=== PATIENT | male | born 1945 | race Caucasian/White ===

== ENCOUNTER 2018-05-12 02:52 | Inpatient (IN) | payer MEDICARE ==
[~2018-05-12] VITALS: Ht 182.9 cm; Wt 126.1 kg
[2018-05-12] VITALS (12 sets, daily range): BP systolic 101–158; BP diastolic 45–79
--- NOTE | 2018-05-12 02:58 | ED.ADGEN ---
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 This started about 1 to 2 days ago.. feeling short of breath.. increase cough.. but tonight.. it much.... worse.... I feel like my lungs ...are full of water....I feel like... I can't get air in...." HPI HPI Patient is a 72 year old [address] male [facility] inmate who presents with above hx and complaints of increased dyspnea. Pt hypoxic on room air on arrival. Patient has approximately [id number] smoking history however has not smoked since that [facility] december. Patient has history of COPD, but has had only rare episodes of bronchitis or exacerbation. Patient is exposed to other inmates at [facility] that who have been sick recently. Patient did have flu vaccination this season. Patient used to be an alcoholic. 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 Pt.did have three episodes of Afib prior to replacement of his aortic value. Patient does take aspirin as an anticoagulant. Patient has never required oxygen. Patient complains of a nonproductive dry cough. Has been feeling like he has fevers. Patient has just finished a 10 year senior care sentence with the [employer]. Pt. pacer placed after his aortic penelope. was replaced. . Review of Systems Review of Systems Constitutional: subjective fever and chills. Eyes: Denies change in visual acuity, redness, or eye pain [] HENT: hx nasal congestion and rhinorrhea. Respiratory: Complaints of non-productive cough and increased dyspnea. Cardiovascular: No additional information not addressed in HPI [] GI: Denies abdominal pain, nausea, vomiting, bloody stools or diarrhea [] : Denies dysuria or hematuria [] Musculoskeletal: Denies back pain or joint pain [] Integument: Denies rash or skin lesions [] Neurologic: Denies headache, focal weakness or sensory changes [] Endocrine: Denies polyuria or polydipsia [] All other systems were reviewed and found to be within normal limits, except as documented in this note. Family History Family History Non-contributory Current Medications Current Medications Current Medications Medications (Trade) Dose Ordered Sig/Nicolas Start Time Stop Time Status Last Admin Dose Admin Albuterol/ Ipratropium (Duoneb) 3 ml RTQID 05/12/18 08:00 Aspirin (Children'S Aspirin) 81 mg DAILY 05/13/18 09:00 Azithromycin (Zithromax) 250 mg DAILY 05/12/18 09:00 Ceftriaxone Sodium 1 gm/ Sodium Chloride 50 ml @ 100 mls/hr QHS 05/12/18 21:00 Ceftriaxone Sodium (Rocephin) 1 gm STK-MED ONCE 05/12/18 03:44 05/12/18 03:45 DC Dextrose 100 ml @ As Directed STK-MED ONCE 05/12/18 04:31 05/12/18 04:32 DC Diltiazem HCl (Cardizem Iv Push) 10 mg 1X ONCE 05/12/18 05:00 05/12/18 05:02 DC Diltiazem HCl (Cardizem) 125 mg STK-MED ONCE 05/12/18 04:31 05/12/18 04:32 DC Diltiazem HCl 125 mg/Dextrose 125 ml @ 5 mls/hr CONT PRN 05/12/18 04:30 05/12/18 04:36 5 MLS/HR Enoxaparin Sodium (Lovenox 120mg Syringe) 120 mg BID 05/12/18 21:00 Info (Anti-Coagulation Monitoring By Pharmacy) 1 each PRN DAILY PRN 05/12/18 04:45 Lactated Ringer's 1,000 ml @ 100 mls/hr Q10H 05/12/18 04:00 05/12/18 13:59 05/12/18 03:51 100 MLS/HR Methylprednisolone Sodium Succinate (SOLU-Medrol 125MG VIAL) 50 mg DAILY 05/12/18 09:00 Ondansetron HCl (Zofran) 4 mg PRN Q4HRS PRN 05/12/18 04:30 05/13/18 04:29 Sodium Chloride 50 ml @ As Directed STK-MED ONCE 05/12/18 03:44 05/12/18 03:45 DC See Nursing for home meds. Allergies Allergies Allergies Coded Allergies Type Severity Reaction Last Updated Verified No Known Drug Allergies 05/12/18 No NKDA Physical Exam Physical Exam Constitutional: in acute distress, non-toxic appearance. [] HENT: Normocephalic, atraumatic, bilateral external ears normal, oropharynx moist, no oral exudates, nose mild injection of nasal turbinates with clear rhinorrhea. Eyes: PERRLA, EOMI, conjunctiva normal, no discharge. [] Neck: Normal range of motion, no tenderness, supple, no stridor. [] Cardiovascular: Tachycardia Heart with ill regular rate and rhythm, aortic murmur []PMI to Lt. Monitor pt. appears to be in Afib. with rapid vent. response. Lungs & Thorax: Bilateral breath sounds equal at apexes with scattered wheezes and basilar crackles on auscultation [] Mid line scar. Pacer scar left. Dry non -productive cough. Abdomen: Bowel sounds normal, soft, no tenderness, no masses, no pulsatile masses. [] Obese. Skin: Warm, diaphoretic, no erythema, no rash. [] Back: No tenderness, no CVA tenderness. [] Extremities: No tenderness, no cyanosis, no clubbing, ROM intact, trace ankle edema. [] Neurologic: Alert and oriented X 3, normal motor function, normal sensory function, no focal deficits noted. [] Psychologic: Affect anxious,, judgement normal, mood normal. [] Current Patient Data Vital Signs Vital Signs Date Time Temp Pulse Resp B/P (MAP) Pulse Ox O2 Delivery O2 Flow Rate FiO2 05/12/18 04:50 100 22 160/92 (114) 96 Nasal Cannula 4.0 05/12/18 02:52 98.5 Lab Results Laboratory Tests Test 05/12/18 03:10 05/12/18 03:13 05/12/18 03:49 05/12/18 04:54 White Blood Count 7.0 x10^3/uL (4.0-11.0) Red Blood Count 4.49 x10^6/uL (4.30-5.70) Hemoglobin 13.8 g/dL (13.0-17.5) Hematocrit 41.7 % (39.0-53.0) Mean Corpuscular Volume 93 fL (79-100) Mean Corpuscular Hemoglobin 31 pg (25-35) Mean Corpuscular Hemoglobin Concent 33 g/dL (31-37) Red Cell Distribution Width 13.6 % (11.5-14.5) Platelet Count 194 x10^3/uL (140-400) Neutrophils (%) (Auto) 79 % (31-73) H Lymphocytes (%) (Auto) 8 % (24-48) L Monocytes (%) (Auto) 8 % (0-9) Eosinophils (%) (Auto) 6 % (0-3) H Basophils (%) (Auto) 1 % (0-3) Neutrophils # (Auto) 5.5 x10^3uL (1.8-7.7) Lymphocytes # (Auto) 0.5 x10^3/uL (1.0-4.8) L Monocytes # (Auto) 0.5 x10^3/uL (0.0-1.1) Eosinophils # (Auto) 0.4 x10^3/uL (0.0-0.7) Basophils # (Auto) 0.1 x10^3/uL (0.0-0.2) Prothrombin Time 10.3 SEC (9.4-11.4) Prothrombin Time INR 1.0 (0.9-1.1) PTT 27 SEC (23-33) D-Dimer (Marla) 0.48 mg/L (0.00-0.50) Sodium Level 140 mmol/L (136-145) Potassium Level 4.0 mmol/L (3.5-5.1) Chloride Level 105 mmol/L (98-107) Carbon Dioxide Level 24 mmol/L (21-32) Anion Gap 11 (6-14) Blood Urea Nitrogen 11 mg/dL (8-26) Creatinine 0.8 mg/dL (0.7-1.3) Estimated GFR (Cockcroft-Gault) 94.5 Glucose Level 116 mg/dL (70-99) H Lactic Acid Level 1.2 mmol/L (0.4-2.0) Calcium Level 8.6 mg/dL (8.5-10.1) Magnesium Level 1.9 mg/dL (1.8-2.4) Total Bilirubin 0.3 mg/dL (0.2-1.0) Direct Bilirubin 0.1 mg/dL (0.0-0.2) Aspartate Amino Transferase (AST) 13 U/L (15-37) L Alanine Aminotransferase (ALT) 20 U/L (16-63) Alkaline Phosphatase 83 U/L (46-116) Creatine Kinase 106 U/L (39-308) Troponin I Quantitative < 0.017 ng/mL (0-0.055) TU-Qhd-L-Type Natriuretic Peptide 587 pg/mL (0-124) H Total Protein 6.8 g/dL (6.4-8.2) Albumin 3.7 g/dL (3.4-5.0) Lipase 108 U/L (73-393) Influenza Type A (Rapid) Negative (NEGATIVE) Influenza Type B (Rapid) Negative (NEGATIVE) Group A Streptococcus Rapid Negative (NEGATIVE) POC Arterial pH 7.39 (7.35-7.45) POC Arterial pCO2 36 mmHg (35-45) POC Arterial pO2 91 mmHg (75-100) Arterial Blood HCO3 22 mmol/L (21-28) POC Arterial Blood O2 Sat 97 % (95-99) POC FiO2 36.0 Urine Collection Type Unknown Urine Color Yellow Urine Clarity Clear Urine pH 5.5 Urine Specific [place] >=1.030 Urine Protein Neg (NEG-TRACE) Urine Glucose (UA) Neg mg/dL (NEG) Urine Ketones (Stick) Neg mg/dL (NEG) Urine Blood Neg (NEG) Urine Nitrite Neg (NEG) Urine Bilirubin Neg (NEG) Urine Urobilinogen Dipstick 0.2 mg/dL (0.2 mg/dL) Urine Leukocyte Esterase Neg (NEG) Urine RBC 0 /HPF (0-2) Urine WBC Rare /HPF (0-4) Urine Squamous Epithelial Cells Occ /LPF Urine Bacteria 0 /HPF (0-FEW) Urine Opiates Screen Neg (NEG) Urine Methadone Screen Neg (NEG) Urine Barbiturates Neg (NEG) Urine Phencyclidine Screen Neg (NEG) Urine Amphetamine/Methamphetamine Neg (NEG) Urine Benzodiazepines Screen Neg (NEG) Urine Cocaine Screen Neg (NEG) Urine Cannabinoids Screen Neg (NEG) Urine Ethyl Alcohol Neg (NEG) EKG EKG My interpretation EKG shows a sinus tachycardia 120 bpm. No P waves found. Regular rate and rhythm. Appears to be in A. fib. Does have findings of bundle- branch block. There is anterior lateral strain pattern. [] Radiology/Procedures Radiology/Procedures My interpretation of chest x-ray shows cardiomegaly, increased cephalization, atypical pneumonia or viral pattern. Does have a pacer on the left.[] Course & Med Decision Making Course & Med Decision Making Pertinent Labs and Imaging studies reviewed. (See chart for details) Discussed presentation with Dr. Iraheta. Pt. Admitted to Dr. Iraheta for further tx. and evaluation. Cardiology consult. Tx for COPD exacerbation and atypical pneumonia. Pt. currently sleeping and no longer in severe respiratory distress. Pt. on oxygen, Cardizem qtt. awaiting room placement at shift change. Check out to Dr. Montez at 5:58, pt. still sleeping no longer in respiratory distress. Still awaiting room. [] Final Impression Final Impression 1. Dyspnea[]-Hypoxia- Respiratory Failure 2. COPD exacerbation 3. Hx. Aortic Penelope. Replacement 11 yrs. ago-porcine 4. Afib- with rapid Vent. Response 5. Atypical Pneumonia Dragon Disclaimer Dragon Disclaimer This electronic medical record was generated, in whole or in part, using a voice recognition dictation system. Discharge Summary Visit Information Final Diagnosis Problems Medical Problems: (1) Dyspnea Status: Acute (2) Respiratory failure with hypoxia Status: Acute Brief Hospital Course Allergies Allergies Coded Allergies Type Severity Reaction Last Updated Verified No Known Drug Allergies 05/12/18 No Vital Signs Vital Signs Date Time Temp Pulse Resp B/P (MAP) Pulse Ox O2 Delivery O2 Flow Rate FiO2 05/12/18 04:50 100 22 160/92 (114) 96 Nasal Cannula 4.0 05/12/18 02:52 98.5 Lab Results Laboratory Tests Test 05/12/18 03:10 05/12/18 03:13 05/12/18 03:49 05/12/18 04:54 White Blood Count 7.0 x10^3/uL (4.0-11.0) Red Blood Count 4.49 x10^6/uL (4.30-5.70) Hemoglobin 13.8 g/dL (13.0-17.5) Hematocrit 41.7 % (39.0-53.0) Mean Corpuscular Volume 93 fL (79-100) Mean Corpuscular Hemoglobin 31 pg (25-35) Mean Corpuscular Hemoglobin Concent 33 g/dL (31-37) Red Cell Distribution Width 13.6 % (11.5-14.5) Platelet Count 194 x10^3/uL (140-400) Neutrophils (%) (Auto) 79 % (31-73) Lymphocytes (%) (Auto) 8 % (24-48) Monocytes (%) (Auto) 8 % (0-9) Eosinophils (%) (Auto) 6 % (0-3) Basophils (%) (Auto) 1 % (0-3) Neutrophils # (Auto) 5.5 x10^3uL (1.8-7.7) Lymphocytes # (Auto) 0.5 x10^3/uL (1.0-4.8) Monocytes # (Auto) 0.5 x10^3/uL (0.0-1.1) Eosinophils # (Auto) 0.4 x10^3/uL (0.0-0.7) Basophils # (Auto) 0.1 x10^3/uL (0.0-0.2) Prothrombin Time 10.3 SEC (9.4-11.4) Prothromb Time International Ratio 1.0 (0.9-1.1) Activated Partial Thromboplast Time 27 SEC (23-33) D-Dimer (Marla) 0.48 mg/L (0.00-0.50) Sodium Level 140 mmol/L (136-145) Potassium Level 4.0 mmol/L (3.5-5.1) Chloride Level 105 mmol/L (98-107) Carbon Dioxide Level 24 mmol/L (21-32) Anion Gap 11 (6-14) Blood Urea Nitrogen 11 mg/dL (8-26) Creatinine 0.8 mg/dL (0.7-1.3) Estimated GFR (Cockcroft-Gault) 94.5 Glucose Level 116 mg/dL (70-99) Lactic Acid Level 1.2 mmol/L (0.4-2.0) Calcium Level 8.6 mg/dL (8.5-10.1) Magnesium Level 1.9 mg/dL (1.8-2.4) Total Bilirubin 0.3 mg/dL (0.2-1.0) Direct Bilirubin 0.1 mg/dL (0.0-0.2) Aspartate Amino Transf (AST/SGOT) 13 U/L (15-37) Alanine Aminotransferase (ALT/SGPT) 20 U/L (16-63) Alkaline Phosphatase 83 U/L (46-116) Creatine Kinase 106 U/L (39-308) Troponin I Quantitative < 0.017 ng/mL (0-0.055) NR-Cdy-I-Type Natriuretic Peptide 587 pg/mL (0-124) Total Protein 6.8 g/dL (6.4-8.2) Albumin 3.7 g/dL (3.4-5.0) Lipase 108 U/L (73-393) Influenza Type A (Rapid) Negative (NEGATIVE) Influenza Type B (Rapid) Negative (NEGATIVE) Group A Streptococcus Rapid Negative (NEGATIVE) Bedside Arterial pH 7.39 (7.35-7.45) Bedside Arterial pCO2 36 mmHg (35-45) Bedside Arterial pO2 91 mmHg (75-100) Arterial Blood HCO3 22 mmol/L (21-28) Bedside Arterial Blood O2 Sat 97 % (95-99) Bedside FiO2 36.0 Urine Collection Type Unknown Urine Color Yellow Urine Clarity Clear Urine pH 5.5 Urine Specific [place] >=1.030 Urine Protein Neg (NEG-TRACE) Urine Glucose (UA) Neg mg/dL (NEG) Urine Ketones (Stick) Neg mg/dL (NEG) Urine Blood Neg (NEG) Urine Nitrite Neg (NEG) Urine Bilirubin Neg (NEG) Urine Urobilinogen Dipstick 0.2 mg/dL (0.2 mg/dL) Urine Leukocyte Esterase Neg (NEG) Urine RBC 0 /HPF (0-2) Urine WBC Rare /HPF (0-4) Urine Squamous Epithelial Cells Occ /LPF Urine Bacteria 0 /HPF (0-FEW) Urine Opiates Screen Neg (NEG) Urine Methadone Screen Neg (NEG) Urine Barbiturates Neg (NEG) Urine Phencyclidine Screen Neg (NEG) Urine Amphetamine/Methamphetamine Neg (NEG) Urine Benzodiazepines Screen Neg (NEG) Urine Cocaine Screen Neg (NEG) Urine Cannabinoids Screen Neg (NEG) Urine Ethyl Alcohol Neg (NEG) Brief Hospital Course Mr. Lechuga is a 72 old male inmate from [facility] who presented with Resp. failure-Hypoxia, COPD ex. , Atypical Pneumonia, Afib with rapid Vent. Response. Hx. of porcine aortic valve 11 years ago. Plan admit to Dr Iraheta Discharge Information Condition at Discharge: Improved, Stable Dischare Medications Current Medications Aspirin (Children'S Aspirin) 324 mg 1X ONCE PO Last administered on 05/12/18at 03:49; Admin Dose 324 MG; Start 05/12/18 at 04:00; Stop 05/12/18 at 04:01; Status DC Lactated Ringer's 1,000 ml @ 100 mls/hr Q10H IV Last administered on at 03:51; Admin Dose 100 MLS/HR; Start 05/12/18 at 04:00; Stop 05/12/18 at 13: 59 Methylprednisolone Sodium Succinate (SOLU-Medrol 125MG VIAL) 125 mg 1X ONCE IV Last administered on 05/12/18at 03:50; Admin Dose 125 MG; Start 05/12/18 at 04: 00; Stop 05/12/18 at 04:01; Status DC Albuterol/ Ipratropium (Duoneb) 3 ml 1X ONCE NEB Last administered on at 03:35; Admin Dose 3 ML; Start 05/12/18 at 04:00; Stop 05/12/18 at 04:01; Status DC Ceftriaxone Sodium 1 gm/ Sodium Chloride 50 ml @ 100 mls/hr 1X ONCE IV Last administered on 05/12/18at 03:50; Admin Dose 100 MLS/HR; Start 05/12/18 at 04:00 ; Stop 05/12/18 at 04:29; Status DC Enoxaparin Sodium (Lovenox 120mg Syringe) 120 mg 1X ONCE SQ Last administered on 05/12/18at 03:50; Admin Dose 120 MG; Start 05/12/18 at 04:00; Stop 05/12/18 at 04:01; Status DC Sodium Chloride 50 ml @ As Directed STK-MED ONCE .ROUTE ; Start 05/12/18 at 03: 44; Stop 05/12/18 at 03:45; Status DC Ceftriaxone Sodium (Rocephin) 1 gm STK-MED ONCE .ROUTE ; Start 05/12/18 at 03:44 ; Stop 05/12/18 at 03:45; Status DC Diltiazem HCl (Cardizem Iv Push) 10 mg 1X ONCE IVP Last administered on at 04:10; Admin Dose 10 MG; Start 05/12/18 at 04:00; Stop 05/12/18 at 04:01; Status DC Diltiazem HCl 125 mg/Dextrose 125 ml @ 5 mls/hr CONT PRN IV SEE I/O RECORD Last administered on 05/12/18at 04:36; Admin Dose 5 MLS/HR; Start 05/12/18 at 04: 30 Diltiazem HCl (Cardizem Iv Push) 10 mg 1X ONCE IVP ; Start 05/12/18 at 05:00; Stop 05/12/18 at 05:02; Status DC Dextrose 100 ml @ As Directed STK-MED ONCE IV ; Start 05/12/18 at 04:31; Stop 05/12/18 at 04:32; Status DC Diltiazem HCl (Cardizem) 125 mg STK-MED ONCE IV ; Start 05/12/18 at 04:31; Stop 05/12/18 at 04:32; Status DC Ondansetron HCl (Zofran) 4 mg PRN Q4HRS PRN IV NAUSEA/VOMITING; Start 05/12/18 at 04:30; Stop 05/13/18 at 04:29 Albuterol/ Ipratropium (Duoneb) 3 ml RTQID NEB ; Start 05/12/18 at 08:00 Aspirin (Children'S Aspirin) 81 mg DAILY PO ; Start 05/13/18 at 09:00 Methylprednisolone Sodium Succinate (SOLU-Medrol 125MG VIAL) 50 mg DAILY IV ; Start 05/12/18 at 09:00 Enoxaparin Sodium (Lovenox 120mg Syringe) 120 mg BID SQ ; Start 05/12/18 at 21: 00 Ceftriaxone Sodium 1 gm/ Sodium Chloride 50 ml @ 100 mls/hr QHS IV ; Start at 21:00 Azithromycin (Zithromax) 250 mg DAILY PO ; Start 05/12/18 at 09:00 Info (Anti-Coagulation Monitoring By Pharmacy) 1 each PRN DAILY PRN [facility] SEE COMMENTS; Start 05/12/18 at 04:45 Discharge Summary Visit Information Final Diagnosis Problems Medical Problems: (1) Dyspnea Status: Acute (2) Respiratory failure with hypoxia Status: Acute Brief Hospital Course Allergies Allergies Coded Allergies Type Severity Reaction Last Updated Verified No Known Drug Allergies 05/12/18 No Vital Signs Vital Signs Date Time Temp Pulse Resp B/P (MAP) Pulse Ox O2 Delivery O2 Flow Rate FiO2 05/12/18 04:50 100 22 160/92 (114) 96 Nasal Cannula 4.0 05/12/18 02:52 98.5 Lab Results Laboratory Tests Test 05/12/18 03:10 05/12/18 03:13 05/12/18 03:49 05/12/18 04:54 White Blood Count 7.0 x10^3/uL (4.0-11.0) Red Blood Count 4.49 x10^6/uL (4.30-5.70) Hemoglobin 13.8 g/dL (13.0-17.5) Hematocrit 41.7 % (39.0-53.0) Mean Corpuscular Volume 93 fL (79-100) Mean Corpuscular Hemoglobin 31 pg (25-35) Mean Corpuscular Hemoglobin Concent 33 g/dL (31-37) Red Cell Distribution Width 13.6 % (11.5-14.5) Platelet Count 194 x10^3/uL (140-400) Neutrophils (%) (Auto) 79 % (31-73) Lymphocytes (%) (Auto) 8 % (24-48) Monocytes (%) (Auto) 8 % (0-9) Eosinophils (%) (Auto) 6 % (0-3) Basophils (%) (Auto) 1 % (0-3) Neutrophils # (Auto) 5.5 x10^3uL (1.8-7.7) Lymphocytes # (Auto) 0.5 x10^3/uL (1.0-4.8) Monocytes # (Auto) 0.5 x10^3/uL (0.0-1.1) Eosinophils # (Auto) 0.4 x10^3/uL (0.0-0.7) Basophils # (Auto) 0.1 x10^3/uL (0.0-0.2) Prothrombin Time 10.3 SEC (9.4-11.4) Prothromb Time International Ratio 1.0 (0.9-1.1) Activated Partial Thromboplast Time 27 SEC (23-33) D-Dimer (Marla) 0.48 mg/L (0.00-0.50) Sodium Level 140 mmol/L (136-145) Potassium Level 4.0 mmol/L (3.5-5.1) Chloride Level 105 mmol/L (98-107) Carbon Dioxide Level 24 mmol/L (21-32) Anion Gap 11 (6-14) Blood Urea Nitrogen 11 mg/dL (8-26) Creatinine 0.8 mg/dL (0.7-1.3) Estimated GFR (Cockcroft-Gault) 94.5 Glucose Level 116 mg/dL (70-99) Lactic Acid Level 1.2 mmol/L (0.4-2.0) Calcium Level 8.6 mg/dL (8.5-10.1) Magnesium Level 1.9 mg/dL (1.8-2.4) Total Bilirubin 0.3 mg/dL (0.2-1.0) Direct Bilirubin 0.1 mg/dL (0.0-0.2) Aspartate Amino Transf (AST/SGOT) 13 U/L (15-37) Alanine Aminotransferase (ALT/SGPT) 20 U/L (16-63) Alkaline Phosphatase 83 U/L (46-116) Creatine Kinase 106 U/L (39-308) Troponin I Quantitative < 0.017 ng/mL (0-0.055) EG-Aox-X-Type Natriuretic Peptide 587 pg/mL (0-124) Total Protein 6.8 g/dL (6.4-8.2) Albumin 3.7 g/dL (3.4-5.0) Lipase 108 U/L (73-393) Influenza Type A (Rapid) Negative (NEGATIVE) Influenza Type B (Rapid) Negative (NEGATIVE) Group A Streptococcus Rapid Negative (NEGATIVE) Bedside Arterial pH 7.39 (7.35-7.45) Bedside Arterial pCO2 36 mmHg (35-45) Bedside Arterial pO2 91 mmHg (75-100) Arterial Blood HCO3 22 mmol/L (21-28) Bedside Arterial Blood O2 Sat 97 % (95-99) Bedside FiO2 36.0 Urine Collection Type Unknown Urine Color Yellow Urine Clarity Clear Urine pH 5.5 Urine Specific [place] >=1.030 Urine Protein Neg (NEG-TRACE) Urine Glucose (UA) Neg mg/dL (NEG) Urine Ketones (Stick) Neg mg/dL (NEG) Urine Blood Neg (NEG) Urine Nitrite Neg (NEG) Urine Bilirubin Neg (NEG) Urine Urobilinogen Dipstick 0.2 mg/dL (0.2 mg/dL) Urine Leukocyte Esterase Neg (NEG) Urine RBC 0 /HPF (0-2) Urine WBC Rare /HPF (0-4) Urine Squamous Epithelial Cells Occ /LPF Urine Bacteria 0 /HPF (0-FEW) Urine Opiates Screen Neg (NEG) Urine Methadone Screen Neg (NEG) Urine Barbiturates Neg (NEG) Urine Phencyclidine Screen Neg (NEG) Urine Amphetamine/Methamphetamine Neg (NEG) Urine Benzodiazepines Screen Neg (NEG) Urine Cocaine Screen Neg (NEG) Urine Cannabinoids Screen Neg (NEG) Urine Ethyl Alcohol Neg (NEG) Brief Hospital Course Mr. Lechuga is a 72 old male inmate from [facility] who presented with hypoxia, atypical pneumonia, Afib with rapid vent. response. Hx. aortic valve replacement 10 years ago. Admitted for further evaluation and treatment. Dr. Iraheta Discharge Information Dischare Medications Current Medications Aspirin (Children'S Aspirin) 324 mg 1X ONCE PO Last administered on 05/12/18at 03:49; Admin Dose 324 MG; Start 05/12/18 at 04:00; Stop 05/12/18 at 04:01; Status DC Lactated Ringer's 1,000 ml @ 100 mls/hr Q10H IV Last administered on at 03:51; Admin Dose 100 MLS/HR; Start 05/12/18 at 04:00; Stop 05/12/18 at 13: 59 Methylprednisolone Sodium Succinate (SOLU-Medrol 125MG VIAL) 125 mg 1X ONCE IV Last administered on 05/12/18at 03:50; Admin Dose 125 MG; Start 05/12/18 at 04: 00; Stop 05/12/18 at 04:01; Status DC Albuterol/ Ipratropium (Duoneb) 3 ml 1X ONCE NEB Last administered on at 03:35; Admin Dose 3 ML; Start 05/12/18 at 04:00; Stop 05/12/18 at 04:01; Status DC Ceftriaxone Sodium 1 gm/ Sodium Chloride 50 ml @ 100 mls/hr 1X ONCE IV Last administered on 05/12/18at 03:50; Admin Dose 100 MLS/HR; Start 05/12/18 at 04:00 ; Stop 05/12/18 at 04:29; Status DC Enoxaparin Sodium (Lovenox 120mg Syringe) 120 mg 1X ONCE SQ Last administered on 05/12/18at 03:50; Admin Dose 120 MG; Start 05/12/18 at 04:00; Stop 05/12/18 at 04:01; Status DC Sodium Chloride 50 ml @ As Directed STK-MED ONCE .ROUTE ; Start 05/12/18 at 03: 44; Stop 05/12/18 at 03:45; Status DC Ceftriaxone Sodium (Rocephin) 1 gm STK-MED ONCE .ROUTE ; Start 05/12/18 at 03:44 ; Stop 05/12/18 at 03:45; Status DC Diltiazem HCl (Cardizem Iv Push) 10 mg 1X ONCE IVP Last administered on at 04:10; Admin Dose 10 MG; Start 05/12/18 at 04:00; Stop 05/12/18 at 04:01; Status DC Diltiazem HCl 125 mg/Dextrose 125 ml @ 5 mls/hr CONT PRN IV SEE I/O RECORD Last administered on 05/12/18at 04:36; Admin Dose 5 MLS/HR; Start 05/12/18 at 04: 30 Diltiazem HCl (Cardizem Iv Push) 10 mg 1X ONCE IVP ; Start 05/12/18 at 05:00; Stop 05/12/18 at 05:02; Status DC Dextrose 100 ml @ As Directed STK-MED ONCE IV ; Start 05/12/18 at 04:31; Stop 05/12/18 at 04:32; Status DC Diltiazem HCl (Cardizem) 125 mg STK-MED ONCE IV ; Start 05/12/18 at 04:31; Stop 05/12/18 at 04:32; Status DC Ondansetron HCl (Zofran) 4 mg PRN Q4HRS PRN IV NAUSEA/VOMITING; Start 05/12/18 at 04:30; Stop 05/13/18 at 04:29 Albuterol/ Ipratropium (Duoneb) 3 ml RTQID NEB ; Start 05/12/18 at 08:00 Aspirin (Children'S Aspirin) 81 mg DAILY PO ; Start 05/13/18 at 09:00 Methylprednisolone Sodium Succinate (SOLU-Medrol 125MG VIAL) 50 mg DAILY IV ; Start 05/12/18 at 09:00 Enoxaparin Sodium (Lovenox 120mg Syringe) 120 mg BID SQ ; Start 05/12/18 at 21: 00 Ceftriaxone Sodium 1 gm/ Sodium Chloride 50 ml @ 100 mls/hr QHS IV ; Start at 21:00 Azithromycin (Zithromax) 250 mg DAILY PO ; Start 05/12/18 at 09:00 Info (Anti-Coagulation Monitoring By Pharmacy) 1 each PRN DAILY PRN [facility] SEE COMMENTS; Start 05/12/18 at 04:45 Ricardo Disclaimer This chart was dictated in whole or in part using Voice Recognition software in a busy, high-work load, and often noisy Emergency Department environment. It may contain unintended and wholly unrecognized errors or omissions. Dragon Disclaimer This chart was dictated in whole or in part using Voice Recognition software in a busy, high-work load, and often noisy Emergency Department environment. It may contain unintended and wholly unrecognized errors or omissions. HASEEB EUCEDA MD May 12, 2018 02:58
--- NOTE | 2018-05-12 03:31 | RAD ---
Indication:Dyspnea, cough TECHNIQUE:Portable AP chest X-ray COMPARISON:None FINDINGS: Heart is top normal in size. CABG changes noted. Cardiac pacer is seen with its leads projecting over the heart. Lungs are hyperinflated. Diffuse bilateral interstitial opacities are seen with prominent bronchovascular markings. No pneumothorax or pleural effusion. Visualized bony thorax within normal limits. IMPRESSION: Findings of interstitial pulmonary edema or atypical/viral infection." Electronically signed by: Marc Rousseau DO (05/12/2018 3:28 AM) [id number]
[2018-05-12] MEDS ORDERED: cefTRIAXone SODIUM 1 GM VIAL ONE (03:44)
[2018-05-12] MEDS ORDERED: IV NORMAL SALINE 50ML 50 ML ONE (03:44)
[2018-05-12 03:52] LABS: BASO # 0.1 x10^3/uL (0.0-0.2); BASO % 1 % (0-3); EOS # 0.4 x10^3/uL (0.0-0.7); EOS % 6 % (0-3); HEMATOCRIT 41.7 % (39.0-53.0); HEMOGLOBIN 13.8 g/dL (13.0-17.5); LYMPH # 0.5 x10^3/uL (1.0-4.8); LYMPH % 8 % (24-48); MEAN CORPUSCULAR HEMOGLOBIN 31 pg (25-35); MEAN CORPUSCULAR HGB CONC 33 g/dL (31-37); MEAN CORPUSCULAR VOLUME 93 fL (79-100); MONO # 0.5 x10^3/uL (0.0-1.1); MONO % 8 % (0-9); NEUT # 5.5 x10^3uL (1.8-7.7); NEUT % 79 % (31-73); PLATELET COUNT 194 x10^3/uL (140-400); RED BLOOD COUNT 4.49 x10^6/uL (4.30-5.70); RED CELL DISTRIBUTION WIDTH 13.6 % (11.5-14.5)
[2018-05-12] MEDS ORDERED: IPRATRPIUM/ALBUTEROL 0.5/2.5MG 3 ML NEBU. NEB ONE (04:00)
[2018-05-12] MEDS ORDERED: methylPREDNISolone SOD SUCC PF 125 MG/2 ML VIAL. IV ONE (04:00)
[2018-05-12] MEDS ORDERED: ENOXAPARIN ** NOTE DOSE ** SYRINGE SQ ONE (04:00)
[2018-05-12] MEDS ORDERED: IV RINGERS SOLUTION,LACTATED 1,000 ML IV SCH (04:00)
[2018-05-12] MEDS ORDERED: dilTIAZem 25 MG/5 ML VIAL IVP ONE ×2 (04:00→05:00)
[2018-05-12] MEDS ORDERED: ASPIRIN 81 MG TAB.CHEW PO ONE (04:00)
[2018-05-12 04:13] LABS: ALBUMIN 3.7 g/dL (3.4-5.0); CALCIUM 8.6 mg/dL (8.5-10.1); CREATININE 0.8 mg/dL (0.7-1.3); DIRECT BILIRUBIN 0.1 mg/dL (0.0-0.2); GFR 94.5; MAGNESIUM 1.9 mg/dL (1.8-2.4); TOTAL BILIRUBIN 0.3 mg/dL (0.2-1.0); TOTAL PROTEIN 6.8 g/dL (6.4-8.2)
[2018-05-12 04:16] LABS: INFLUENZA A PATIENT NEGATIVE (NEGATIVE); INFLUENZA B PATIENT NEGATIVE (NEGATIVE)
[2018-05-12] MEDS ORDERED: ONDANSETRON PF 4 MG/2 ML VIAL. IV PRN (04:30)
[2018-05-12] MEDS ORDERED: IV DEXTROSE 5% 100 ML IV ONE (04:31)
[2018-05-12] MEDS: dilTIAZem VIAL 125 MG in IV DEXTROSE 5% 100 ML IV PRN ×2 (04:36→17:43)
[2018-05-12] MEDS ORDERED: ANTI-COAG MONITOR BY PHARMACY. MC PRN (04:45)
[2018-05-12 05:13] LABS: BARBITURATES NEG (NEG); BENZODIAZEPINES NEG (NEG); BILIRUBIN,URINE NEG (NEG); CANNABINOIDS NEG (NEG); CLARITY,URINE CLEAR; COCAINE NEG (NEG); COLOR,URINE YELLOW; GLUCOSE,URINE NEG (NEG); METHADONE NEG (NEG); NITRITE,URINE NEG (NEG); OPIATES NEG (NEG); PHENCYCLIDINE NEG (NEG); UROBILINOGEN,URINE 0.2 mg/dL (0.2 mg/dL)
[2018-05-12 05:14] LABS: BACTERIA,URINE 0 /HPF (0-FEW); RBC,URINE 0 /HPF (0-2); SQUAMOUS EPITHELIAL CELL,UR OCC /LPF; WBC,URINE RARE /HPF (0-4)
[2018-05-12 05:15] LABS: AMPHETAMINE/METHAMPHETAMINE NEG (NEG)
[2018-05-12 06:03] LABS: BGAS PH 7.39 (7.35-7.46)
[2018-05-12] MEDS: methylPREDNISolone SOD SUCC PF 125 MG/2 ML VIAL. IV SCH (09:00)
[2018-05-12] MEDS ORDERED: AZITHROMYCIN 250 MG TABLET. PO SCH (09:00)
[2018-05-12] MEDS: IPRATRPIUM/ALBUTEROL 0.5/2.5MG 3 ML NEBU. NEB SCH ×4 (09:22→20:33)
--- NOTE | 2018-05-12 09:35 | PDOC2 ---
JIMENEZ BOLAÑOS PERFORMANCE IMPROVEMENT DIRECTOR 05/12/18 0935: CONSULT Date of Admission DATE: 05/12/18 TIME: 09:34 Reason for Consult: atrial fibrillation with RVR Problem List Problems Medical Problems: (1) Dyspnea Status: Acute (2) Respiratory failure with hypoxia Status: Acute History of Present Illness Mr Lechuga is a 72 year old male residing in the [facility]. He presents with complaints of shortness of breath and cough. He reports starting with dry cough in am and thought it was related to being out walking in the cold and rain the previous day. Cough progressed through the day with increasing shortness of breath and finally increasing orthopnea so he decided to seek emergency care. He reports subjective fever. He reports sick contacts. He denies edema or weight gain. he was found to be in atrial fibrillation with RVR in ED. He denies any episodes since his valve replacement. he does not feel the palpitations or rapid heart beat however. He denies chest pain, lightheadedness or syncope. he denies decrease in functional capacity prior to yesterday. Cardiovascular: AFIB, Other (AVR secondary to stenosis) Pulmonary: Bronchitis, COPD, Pneumonia Renal/: Prostate Ca. (s/p radiation) Past Surgical History AVR with bioprosthetic valve Social History prior history of smoking and ETOH, currently negative, no illicit drug use Current Medications Current Medications Aspirin (Children'S Aspirin) 324 mg 1X ONCE PO Last administered on 05/12/18at 03:49; Start 05/12/18 at 04:00; Stop 05/12/18 at 04:01; Status DC Lactated Ringer's 1,000 ml @ 100 mls/hr Q10H IV Last administered on at 03:51; Start 05/12/18 at 04:00; Stop 05/12/18 at 13:59 Methylprednisolone Sodium Succinate (SOLU-Medrol 125MG VIAL) 125 mg 1X ONCE IV Last administered on 05/12/18at 03:50; Start 05/12/18 at 04:00; Stop 05/12/18 at 04:01; Status DC Albuterol/ Ipratropium (Duoneb) 3 ml 1X ONCE NEB Last administered on at 03:35; Start 05/12/18 at 04:00; Stop 05/12/18 at 04:01; Status DC Ceftriaxone Sodium 1 gm/ Sodium Chloride 50 ml @ 100 mls/hr 1X ONCE IV Last administered on 05/12/18at 03:50; Start 05/12/18 at 04:00; Stop 05/12/18 at 04:29 ; Status DC Enoxaparin Sodium (Lovenox 120mg Syringe) 120 mg 1X ONCE SQ Last administered on 05/12/18at 03:50; Start 05/12/18 at 04:00; Stop 05/12/18 at 04:01; Status DC Sodium Chloride 50 ml @ As Directed STK-MED ONCE .ROUTE ; Start 05/12/18 at 03: 44; Stop 05/12/18 at 03:45; Status DC Ceftriaxone Sodium (Rocephin) 1 gm STK-MED ONCE .ROUTE ; Start 05/12/18 at 03:44 ; Stop 05/12/18 at 03:45; Status DC Diltiazem HCl (Cardizem Iv Push) 10 mg 1X ONCE IVP Last administered on at 04:10; Start 05/12/18 at 04:00; Stop 05/12/18 at 04:01; Status DC Diltiazem HCl 125 mg/Dextrose 125 ml @ 5 mls/hr CONT PRN IV SEE I/O RECORD Last administered on 05/12/18at 04:36; Start 05/12/18 at 04:30 Diltiazem HCl (Cardizem Iv Push) 10 mg 1X ONCE IVP ; Start 05/12/18 at 05:00; Stop 05/12/18 at 05:02; Status DC Dextrose 100 ml @ As Directed STK-MED ONCE IV ; Start 05/12/18 at 04:31; Stop 05/12/18 at 04:32; Status DC Diltiazem HCl (Cardizem) 125 mg STK-MED ONCE IV ; Start 05/12/18 at 04:31; Stop 05/12/18 at 04:32; Status DC Ondansetron HCl (Zofran) 4 mg PRN Q4HRS PRN IV NAUSEA/VOMITING; Start 05/12/18 at 04:30; Stop 05/13/18 at 04:29 Albuterol/ Ipratropium (Duoneb) 3 ml RTQID NEB Last administered on 05/12/18at 09:22; Start 05/12/18 at 08:00 Aspirin (Children'S Aspirin) 81 mg DAILY PO ; Start 05/13/18 at 09:00 Methylprednisolone Sodium Succinate (SOLU-Medrol 125MG VIAL) 50 mg DAILY IV ; Start 05/12/18 at 09:00 Enoxaparin Sodium (Lovenox 120mg Syringe) 120 mg BID SQ ; Start 05/12/18 at 21: 00 Ceftriaxone Sodium 1 gm/ Sodium Chloride 50 ml @ 100 mls/hr QHS IV ; Start at 21:00 Azithromycin (Zithromax) 250 mg DAILY PO ; Start 05/12/18 at 09:00 Info (Anti-Coagulation Monitoring By Pharmacy) 1 each PRN DAILY PRN MC SEE COMMENTS; Start 05/12/18 at 04:45 Lactobacillus Rhamnosus (Culturelle) 1 cap BID PO ; Start 05/12/18 at 09:00 Allergies: Coded Allergies: No Known Drug Allergies (Unverified , 05/12/18) Review of System as per HPI or negative General: Alert, Oriented X3, Cooperative, mild distress HEENT: Atraumatic, EOMI, Mucous membr. moist/pink Lungs: Other (+basilar crackles) Heart: Other (IRR, no gallops, clicks or rubs) Abdomen: Normal bowel sounds, Soft, No tenderness Extremities: No cyanosis, Other (trace edema) Neuro: Normal speech, Strength at 5/5 X4 ext Psych/Mental Status: Mental status NL, Mood NL VITALS Vital Signs Date Time Temp Pulse Resp B/P (MAP) Pulse Ox O2 Delivery O2 Flow Rate FiO2 05/12/18 09:24 96 Nasal Cannula 4.0 05/12/18 06:34 98.7 90 20 125/63 (83) Labs Laboratory Tests Test 05/12/18 03:07 05/12/18 03:10 05/12/18 03:13 05/12/18 03:49 Blood Gas pH 7.39 (7.35-7.46) Blood Gas PCO2 36 mmHg (35-46) Blood Gas PO2 91 mmHg (71-100) Blood Gas HCO3 22 mmol/L (21-28) Arterial Bld O2 Saturation (Calc) 97 % (92-99) FiO2 36 % White Blood Count 7.0 x10^3/uL (4.0-11.0) Red Blood Count 4.49 x10^6/uL (4.30-5.70) Hemoglobin 13.8 g/dL (13.0-17.5) Hematocrit 41.7 % (39.0-53.0) Mean Corpuscular Volume 93 fL (79-100) Mean Corpuscular Hemoglobin 31 pg (25-35) Mean Corpuscular Hemoglobin Concent 33 g/dL (31-37) Red Cell Distribution Width 13.6 % (11.5-14.5) Platelet Count 194 x10^3/uL (140-400) Neutrophils (%) (Auto) 79 % (31-73) Lymphocytes (%) (Auto) 8 % (24-48) Monocytes (%) (Auto) 8 % (0-9) Eosinophils (%) (Auto) 6 % (0-3) Basophils (%) (Auto) 1 % (0-3) Neutrophils # (Auto) 5.5 x10^3uL (1.8-7.7) Lymphocytes # (Auto) 0.5 x10^3/uL (1.0-4.8) Monocytes # (Auto) 0.5 x10^3/uL (0.0-1.1) Eosinophils # (Auto) 0.4 x10^3/uL (0.0-0.7) Basophils # (Auto) 0.1 x10^3/uL (0.0-0.2) Prothrombin Time 10.3 SEC (9.4-11.4) Prothromb Time International Ratio 1.0 (0.9-1.1) Activated Partial Thromboplast Time 27 SEC (23-33) D-Dimer (Marla) 0.48 mg/L (0.00-0.50) Sodium Level 140 mmol/L (136-145) Potassium Level 4.0 mmol/L (3.5-5.1) Chloride Level 105 mmol/L (98-107) Carbon Dioxide Level 24 mmol/L (21-32) Anion Gap 11 (6-14) Blood Urea Nitrogen 11 mg/dL (8-26) Creatinine 0.8 mg/dL (0.7-1.3) Estimated GFR (Cockcroft-Gault) 94.5 Glucose Level 116 mg/dL (70-99) Lactic Acid Level 1.2 mmol/L (0.4-2.0) Calcium Level 8.6 mg/dL (8.5-10.1) Magnesium Level 1.9 mg/dL (1.8-2.4) Total Bilirubin 0.3 mg/dL (0.2-1.0) Direct Bilirubin 0.1 mg/dL (0.0-0.2) Aspartate Amino Transf (AST/SGOT) 13 U/L (15-37) Alanine Aminotransferase (ALT/SGPT) 20 U/L (16-63) Alkaline Phosphatase 83 U/L (46-116) Creatine Kinase 106 U/L (39-308) Troponin I Quantitative < 0.017 ng/mL (0-0.055) GJ-Ivi-Z-Type Natriuretic Peptide 587 pg/mL (0-124) Total Protein 6.8 g/dL (6.4-8.2) Albumin 3.7 g/dL (3.4-5.0) Lipase 108 U/L (73-393) Influenza Type A (Rapid) Negative (NEGATIVE) Influenza Type B (Rapid) Negative (NEGATIVE) Group A Streptococcus Rapid Negative (NEGATIVE) Bedside Arterial pH 7.39 (7.35-7.45) Bedside Arterial pCO2 36 mmHg (35-45) Bedside Arterial pO2 91 mmHg (75-100) Arterial Blood HCO3 22 mmol/L (21-28) Bedside Arterial Blood O2 Sat 97 % (95-99) Bedside FiO2 36.0 Test 05/12/18 04:54 05/12/18 07:40 Urine Collection Type Unknown Urine Color Yellow Urine Clarity Clear Urine pH 5.5 Urine Specific [place] >=1.030 Urine Protein Neg (NEG-TRACE) Urine Glucose (UA) Neg mg/dL (NEG) Urine Ketones (Stick) Neg mg/dL (NEG) Urine Blood Neg (NEG) Urine Nitrite Neg (NEG) Urine Bilirubin Neg (NEG) Urine Urobilinogen Dipstick 0.2 mg/dL (0.2 mg/dL) Urine Leukocyte Esterase Neg (NEG) Urine RBC 0 /HPF (0-2) Urine WBC Rare /HPF (0-4) Urine Squamous Epithelial Cells Occ /LPF Urine Bacteria 0 /HPF (0-FEW) Urine Opiates Screen Neg (NEG) Urine Methadone Screen Neg (NEG) Urine Barbiturates Neg (NEG) Urine Phencyclidine Screen Neg (NEG) Urine Amphetamine/Methamphetamine Neg (NEG) Urine Benzodiazepines Screen Neg (NEG) Urine Cocaine Screen Neg (NEG) Urine Cannabinoids Screen Neg (NEG) Urine Ethyl Alcohol Neg (NEG) Troponin I Quantitative < 0.017 ng/mL (0-0.055) Images CXR - IMPRESSION: Findings of interstitial pulmonary edema or atypical/viral infection." Assessment/Plan 1. atrial fibrillation with RVR - rate control. persistent for several months by device interrogation. Recommend OAC for stroke prophylaxis, and rate control. Await echo for atrial size. If no significant atrial enlargement would suggest outpatient follow up in 4 weeks for antiarrhythmic vs ECV. 2. acute respiratory insufficiency likely multifactorial to include viral infection with mild heart failure, likely diastolic, secondary to AF RVR - IV lasix x 1, mgmt of viral per PCP 3. hx AVR with bioprosthetic valve. - echo to eval valve function MANNIE MEDLEY MD 05/13/18 1524: CONSULT Assessment/Plan Patient seen and examined. Agree with SAIL REPAIR PERSON's assessment and plan. Patient with new onset atrial fibrillation, presently rate well-controlled Start eliquis for stroke prophylaxis and plan outpatient cardioversion in 3-4 weeks Check 2-D echo to assess LV function and also bioprosthetic aortic valve function Thank you for your consultation JIMENEZ BOLAÑOS APRN May 12, 2018 09:35 MANNIE MEDLEY MD May 13, 2018 15:24
[2018-05-12] MEDS ORDERED: POTASSIUM CHLORIDE 20 MEQ TABLET.ER. PO ONE (11:00)
[2018-05-12] MEDS ORDERED: FUROSEMIDE 40 MG/4 ML VIAL IVP ONE (11:00)
[2018-05-12] MEDS: LACTOBACILLUS RHAMNOSUS GG 1 CAPSULE. PO SCH ×2 (11:18→20:51)
--- NOTE | 2018-05-12 14:36 | HP ---
ADMIT DATE: 05/12/2018 HISTORY OF PRESENT ILLNESS: The patient is a 72-year-old male patient, a resident at [facility], who came to the Emergency Room, complaining of shortness of breath that has been going on for almost 2 days now with increasing cough and last night, his shortness of breath has dramatically worsened. When he arrived, he was hypoxic on room air. He has approximately [id number] smoking history; however, he has not smoked for almost 10 years while locked at [facility]; however, the moment, he was released, he started smoking since last November. When he arrived to the [facility], he has rare episodes of bronchitis with exacerbation. He has been exposed to other inmates, have been sick recently. He did have flu vaccination for this season. He used to be an alcoholic, has had aortic valve replaced approximately 11 years ago with a porcine valve. He has had episodes of atrial fibrillation prior to replacement of his aortic valve. The patient does take an aspirin as an anticoagulant. He has never required oxygen. The patient complains of a nonproductive dry cough, has been feeling like has fever, just finished 10 years long term at the [facility] in [place], [place]. He has had also a pacemaker placed after his aortic valve was replaced. PAST MEDICAL HISTORY: Significant for hypertension, atrial fibrillation, aortic valve disease as prostate cancer, status post chemotherapy, has also benign prostatic hypertrophy. PAST SURGICAL HISTORY: Significant for aortic valve replacement, transurethral resection of the prostate and a permanent pacemaker placement. ALLERGIES: He has no known drug allergies. MEDICATIONS: He is currently on aspirin tablet once a day. FAMILY HISTORY: According to him, he is the only child. He was adopted. He does not know his biological parents. SOCIAL HISTORY: He is , has 1 son. He smokes 15 cigarettes a day, has been a smoker since he was 12 years old. He used to be alcoholic since he was a kid, although has not drank alcohol since he was incarcerated for 10 years. He used to smoke marijuana during his ____ to [place]. REVIEW OF SYSTEMS: The patient denied any blurring of vision, cataract, glaucoma or macular degeneration. Denied any earache, tinnitus or sensorineural deafness. Denied any nosebleeds, stuffy nose or postnasal drip. Denied any sore throat, sore tongue, toothache, hoarseness of voice or difficulty swallowing. Denied any nausea, vomiting, diarrhea or constipation. Denied any hematemesis, melena or hematochezia. Denied any dysuria, frequency or hematuria. Denied any chest pain. Did complain of shortness of breath. Denied any orthopnea or paroxysmal nocturnal dyspnea. PHYSICAL EXAMINATION: GENERAL: On arrival to the Emergency Room, the patient was slightly tachypneic and hypoxic, but there was no pallor, jaundice, cyanosis or thyromegaly. No jugular venous distension. No limb edema. VITAL SIGNS: His heart rate was 110, blood pressure was 154/90, temperature was 98.5, respiratory rate 22 and oxygen saturation was according to the ER physician, he was hypoxic, although he does not give any specific number. HEAD, EYES, EARS, NOSE, THROAT: Showed normocephalic, atraumatic. NECK: Supple. HEART: Showed normal first and second sounds. No gallop, rub or murmur. CHEST: Clear to auscultation. No crepitation or rhonchi. ABDOMEN: Distended, soft, nontender. NEUROLOGIC: He was awake, alert, responding appropriately. All cranial nerves intact. EXTREMITIES: He moves extremities without difficulty. He apparently ambulates without assistance or assistive devices. LABORATORY DATA: His lab work showed a white cell count 7000, hemoglobin 14, hematocrit 42, MCV 93 and platelet count of 194,000. His blood gases showed a pH of 7.39, pCO2 of 36, pO2 of 91 and bicarbonate 22, oxygen saturation 97% on FiO2 of 36%. His prothrombin time was 10.3, INR of 1, aPTT was 27. D-dimer was 0.48 mg/dL. His serum sodium was 140, potassium 4, chloride 105, bicarbonate 24, anion gap of 11, BUN 11, creatinine 0.8, estimated GFR was 94 mL per minute, his glucose 116. Lactic acid was 1.2, calcium was 8.6, magnesium was 1.9. Total bilirubin, AST, ALT, alkaline phosphatase were normal. His first set of cardiac enzymes showed troponin to be less than 0.017. His BNP was 587. Total protein was 6.8, albumin was 3.7. Serum lipase was 108. Urinalysis showed the urine was yellow, clear with a pH of 5.5, specific gravity of 1.030. The urine was negative for protein, glucose, ketones, blood, nitrite and leukocyte esterase. There are no rbc's, no wbc's, and no bacteria. His toxic screen was negative. His influenza A and B were negative. His chest x-ray showed the heart size is normal. He has coronary artery bypass graft changes noted. Cardiac pacer is seen with its leads projecting over the heart, lungs are hyperinflated, diffuse bilateral interstitial opacities are seen with prominent bronchovascular markings, no pneumothorax, no pleural effusion, visualized bony thorax within normal limits. ASSESSMENT AND PLAN: The findings are consistent with interstitial pulmonary edema and/or atypical viral infection. We did obviously consult the cardiology team to see him and also will do 2 more sets of cardiac enzyme. He was given Lasix. He was given loading dose of Cardizem. He continues to be on a Cardizem drip at 5 mg. I will continue with Zithromax as well as ceftriaxone for the time being. We will also start him on Eliquis for anticoagulation as per the Cardiology recommendation. MADELYN MALONEY MD DR: HI/aissatou JOB#: [id number] / [id number]
[2018-05-12] MEDS: BENZONATATE 100 MG CAPSULE. PO SCH ×2 (17:38→20:51)
[2018-05-12] MEDS: APIXABAN 5 MG TABLET. PO SCH (20:51)
[2018-05-12] MEDS ORDERED: ENOXAPARIN ** NOTE DOSE ** SYRINGE SQ SCH (21:00)
[2018-05-13] VITALS (18 sets, daily range): BP systolic 118–174; BP diastolic 53–78
[2018-05-13] MEDS: IPRATRPIUM/ALBUTEROL 0.5/2.5MG 3 ML NEBU. NEB SCH ×4 (04:51→20:24)
[2018-05-13 06:28] LABS: HEMATOCRIT 38.2 % (39.0-53.0); HEMOGLOBIN 12.9 g/dL (13.0-17.5); RED BLOOD COUNT 4.11 x10^6/uL (4.30-5.70); RED CELL DISTRIBUTION WIDTH 13.5 % (11.5-14.5)
[2018-05-13 06:30] LABS: ALBUMIN 3.6 g/dL (3.4-5.0); ALBUMIN/GLOBULIN RATIO 1.2 (1.0-1.7); CALCIUM 8.7 mg/dL (8.5-10.1); CREATININE 0.8 mg/dL (0.7-1.3); GFR 94.5; TOTAL BILIRUBIN 0.3 mg/dL (0.2-1.0); TOTAL PROTEIN 6.5 g/dL (6.4-8.2)
[2018-05-13] MEDS: ASPIRIN 81 MG TAB.CHEW PO SCH (09:31)
[2018-05-13] MEDS: BENZONATATE 100 MG CAPSULE. PO SCH ×3 (09:31→20:43)
[2018-05-13] MEDS: LACTOBACILLUS RHAMNOSUS GG 1 CAPSULE. PO SCH ×2 (09:31→20:43)
[2018-05-13] MEDS: methylPREDNISolone SOD SUCC PF 125 MG/2 ML VIAL. IV SCH (09:32)
[2018-05-13] MEDS: APIXABAN 5 MG TABLET. PO SCH ×2 (09:32→20:43)
[2018-05-13] MEDS: AZITHROMYCIN 250 MG TABLET. PO SCH (09:32)
--- NOTE | 2018-05-13 11:45 | RAD ---
Portable chest, 05/13/2018: HISTORY: Shortness of breath Comparison is made to yesterday's study. There has been a previous median sternotomy. A left-sided transvenous pacemaker is in place with 2 leads extending into the right heart. The heart appears to be within normal limits in size for the AP technique. The pulmonary vascularity is at the upper limits of normal. The basilar pulmonary markings are prominent. The patient's size and the portable technique may be contributing to this appearance. Follow-up PA and lateral chest radiographs may be useful for further evaluation, if clinically indicated. No consolidating infiltrate is seen. There is no evidence of pleural fluid. IMPRESSION: No significant change since yesterday's exam. Electronically signed by: Felipe Cornelius MD (05/13/2018 11:42 AM) [facility]
[2018-05-13] MEDS: dilTIAZem VIAL 125 MG in IV DEXTROSE 5% 100 ML IV PRN ×2 (12:19→21:01)
[2018-05-13] MEDS ORDERED: ALBUTEROL SULFATE 2.5 MG/3 ML NEBU. NEB PRN (15:45)
--- NOTE | 2018-05-13 17:27 | CARD ---
MR#: [id number] Date of Study: 05/13/2018 Ordering Physician: JIMENEZ BOLAÑOS, Referring Physician: MADELYN MALONEY, Tech: Roopa Hernandez APPROVED REPORT EXAM: Two-dimensional and M-mode echocardiogram with Doppler and color Doppler. Other Information Quality : AverageHR: 92bpm INDICATION Atrial Fibrillation Surgery/Intervention Status/Post Aortic Valve Replacement: Bioprosthetic Type: Porcine Date: 2009 Pacemaker: Date: 2009 RISK FACTORS Smoking 2D DIMENSIONS RVDd2.5 (2.9-3.5cm)Left Atrium(2D)4.9 (1.6-4.0cm) IVSd1.2 (0.7-1.1cm)Aortic Root(2D)2.4 (2.0-3.7cm) LVDd5.3 (3.9-5.9cm)LVOT Diameter2.0 (1.8-2.4cm) PWd1.0 (0.7-1.1cm)LVDs2.4 (2.5-4.0cm) FS (%) 54.4 %SV114.4 ml LVEF(%)84.8 (>50%) Aortic Valve AoV Peak Antony.237.5cm/sAoV VTI44.9cm AO Peak GR.22.6mmHgLVOT Peak Antony.193.5cm/s LVOT VTI 36.50cmAO Mean GR.15mmHg BOB (VMAX)2.48mg9FEW (VTI)2.44cm2 Pulmonary Valve PV Peak Bcvdrzcb679.6cm/sPV Peak Grad.4mmHg Tricuspid Valve TR P. Nhqdtbmi150sm/sRAP [id number] TR Peak Gr.97diJcCRAA96udYh Pulmonary Vein S1 Vnsntrtn45.5cm/sD2 Brbfyoii996.0cm/s LEFT VENTRICLE The left ventricle is normal size. There is borderline to mild concentric left ventricular hypertroph y. The left ventricular systolic function is normal and the ejection fraction is within normal range. The Ejection Fraction is >55%. There is normal LV segmental wall motion. Tissue Doppler imaging reve als moderate left ventricular diastolic dysfunction. RIGHT VENTRICLE The right ventricle is mildly dilated. The right ventricle is mildly hypertrophied. The right ventric ular systolic function is normal. There is a pacemaker lead in the right ventricle. ATRIA The left atrium is moderately dilated. The right atrium is mildly dilated. There is a pacemaker lead seen in the right atrium. The interatrial septum is intact with no evidence for an atrial septal defe ct or patent foramen ovale as noted on 2-D or Doppler imaging. AORTIC VALVE Not well visualized. Doppler and Color Flow revealed no significant aortic regurgitation. Calculated aortic valve area is 2.4 cm2 with maximum pressure gradient of 23 mmHg and mean pressure gradient of 15 mmHg. No significant stenosis. Presumed bioprosthetic valve by history There are normal prosthetic aortic valve gradients. MITRAL VALVE The mitral valve is thickened but opens well. There is no evidence of mitral valve prolapse. There is no mitral valve stenosis. Doppler and Color-flow revealed trace mitral regurgitation. TRICUSPID VALVE The tricuspid valve is not well visualized. Doppler and Color Flow revealed trace tricuspid regurgita tion. There is no tricuspid valve stenosis. PULMONIC VALVE The pulmonic valve leaflets are thin and pliable; valve motion is normal. Doppler and Color Flow reve aled trace pulmonic valvular regurgitation. There is no pulmonic valvular stenosis. GREAT VESSELS The aortic root is normal in size. The IVC is dilated and collapses <50% with inspiration. PERICARDIAL EFFUSION There is no evidence of significant pericardial effusion. Critical Notification Critical Value: No <Conclusion> The left ventricular systolic function is normal and the ejection fraction is within normal range. T he Ejection Fraction is >55%. There is normal LV segmental wall motion. There is a pacemaker lead in the right ventricle. Calculated aortic valve area is 2.4 cm2 with maximum pressure gradient of 23 mmHg and mean pressure g radient of 15 mmHg. No significant stenosis. Presumed bioprosthetic valve by history Signed by : Endy Mcdaniels, Electronically Approved : 05/13/2018 17:26:37
[2018-05-13] MEDS: methylPREDNISolone SOD SUCC PF 40 MG/ML VIAL. IV SCH (18:28)
--- NOTE | 2018-05-13 19:20 | PDOC ---
PROGRESS NOTES Diagnosis Problem Problems Medical Problems: (1) Dyspnea Status: Acute (2) Respiratory failure with hypoxia Status: Acute Assessment Problems Medical Problems: (1) Dyspnea Status: Acute (2) Respiratory failure with hypoxia Status: Acute 1. Atrial fibrillation with rVR, remains on cardizem. Device interrogation reveals 100% AF since Oct. Start OAC for stoke prophylaxis. 2. respiratlry infection - on abx, mgnt perp PCP 3. hx bioprostetic aortic valve, await echo Subjective still tachy, still with some dyspnea and cough. C/o discomfort in chest with cough. no lightheadedness or syncope Objective Vital Signs Date Time Temp Pulse Resp B/P (MAP) Pulse Ox O2 Delivery O2 Flow Rate FiO2 05/13/18 18:00 97 23 158/68 (98) 93 Nasal Cannula 2.0 05/13/18 13:00 99.5 Intake and Output 05/13/18 06:59 Intake Total 2689 ml Output Total 2550 ml Balance 139 ml Intake Oral 2390 ml IV Total 299 ml Output Urine Total 2550 ml # Voids 1 Physical Exam gen:awake alert and in no distress CV irr, no gallops, clicks or rubs. no obvious murmurs lungs, decreased with coarse bases bilaterally abd: soft nontender,+ bowel sounds ext no significant edema. Review of Relevant I have reviewed the following items ivon (where applicable) has been applied. Labs Laboratory Tests Test 05/12/18 03:07 05/12/18 03:10 05/12/18 03:13 05/12/18 03:49 Blood Gas pH 7.39 (7.35-7.46) Blood Gas PCO2 36 mmHg (35-46) Blood Gas PO2 91 mmHg (71-100) Blood Gas HCO3 22 mmol/L (21-28) Arterial Bld O2 Saturation (Calc) 97 % (92-99) FiO2 36 % White Blood Count 7.0 x10^3/uL (4.0-11.0) Red Blood Count 4.49 x10^6/uL (4.30-5.70) Hemoglobin 13.8 g/dL (13.0-17.5) Hematocrit 41.7 % (39.0-53.0) Mean Corpuscular Volume 93 fL (79-100) Mean Corpuscular Hemoglobin 31 pg (25-35) Mean Corpuscular Hemoglobin Concent 33 g/dL (31-37) Red Cell Distribution Width 13.6 % (11.5-14.5) Platelet Count 194 x10^3/uL (140-400) Neutrophils (%) (Auto) 79 % (31-73) Lymphocytes (%) (Auto) 8 % (24-48) Monocytes (%) (Auto) 8 % (0-9) Eosinophils (%) (Auto) 6 % (0-3) Basophils (%) (Auto) 1 % (0-3) Neutrophils # (Auto) 5.5 x10^3uL (1.8-7.7) Lymphocytes # (Auto) 0.5 x10^3/uL (1.0-4.8) Monocytes # (Auto) 0.5 x10^3/uL (0.0-1.1) Eosinophils # (Auto) 0.4 x10^3/uL (0.0-0.7) Basophils # (Auto) 0.1 x10^3/uL (0.0-0.2) Prothrombin Time 10.3 SEC (9.4-11.4) Prothromb Time International Ratio 1.0 (0.9-1.1) Activated Partial Thromboplast Time 27 SEC (23-33) D-Dimer (Marla) 0.48 mg/L (0.00-0.50) Sodium Level 140 mmol/L (136-145) Potassium Level 4.0 mmol/L (3.5-5.1) Chloride Level 105 mmol/L (98-107) Carbon Dioxide Level 24 mmol/L (21-32) Anion Gap 11 (6-14) Blood Urea Nitrogen 11 mg/dL (8-26) Creatinine 0.8 mg/dL (0.7-1.3) Estimated GFR (Cockcroft-Gault) 94.5 Glucose Level 116 mg/dL (70-99) Lactic Acid Level 1.2 mmol/L (0.4-2.0) Calcium Level 8.6 mg/dL (8.5-10.1) Magnesium Level 1.9 mg/dL (1.8-2.4) Total Bilirubin 0.3 mg/dL (0.2-1.0) Direct Bilirubin 0.1 mg/dL (0.0-0.2) Aspartate Amino Transf (AST/SGOT) 13 U/L (15-37) Alanine Aminotransferase (ALT/SGPT) 20 U/L (16-63) Alkaline Phosphatase 83 U/L (46-116) Creatine Kinase 106 U/L (39-308) Troponin I Quantitative < 0.017 ng/mL (0-0.055) VI-Mia-V-Type Natriuretic Peptide 587 pg/mL (0-124) Total Protein 6.8 g/dL (6.4-8.2) Albumin 3.7 g/dL (3.4-5.0) Lipase 108 U/L (73-393) Thyroid Stimulating Hormone (TSH) 0.657 uIU/mL (0.358-3.740) Influenza Type A (Rapid) Negative (NEGATIVE) Influenza Type B (Rapid) Negative (NEGATIVE) Group A Streptococcus Rapid Negative (NEGATIVE) Bedside Arterial pH 7.39 (7.35-7.45) Bedside Arterial pCO2 36 mmHg (35-45) Bedside Arterial pO2 91 mmHg (75-100) Arterial Blood HCO3 22 mmol/L (21-28) Bedside Arterial Blood O2 Sat 97 % (95-99) Bedside FiO2 36.0 Test 05/12/18 04:54 05/12/18 06:35 05/12/18 07:40 05/13/18 05:40 Urine Collection Type Unknown Urine Color Yellow Urine Clarity Clear Urine pH 5.5 Urine Specific [place] >=1.030 Urine Protein Neg (NEG-TRACE) Urine Glucose (UA) Neg mg/dL (NEG) Urine Ketones (Stick) Neg mg/dL (NEG) Urine Blood Neg (NEG) Urine Nitrite Neg (NEG) Urine Bilirubin Neg (NEG) Urine Urobilinogen Dipstick 0.2 mg/dL (0.2 mg/dL) Urine Leukocyte Esterase Neg (NEG) Urine RBC 0 /HPF (0-2) Urine WBC Rare /HPF (0-4) Urine Squamous Epithelial Cells Occ /LPF Urine Bacteria 0 /HPF (0-FEW) Urine Opiates Screen Neg (NEG) Urine Methadone Screen Neg (NEG) Urine Barbiturates Neg (NEG) Urine Phencyclidine Screen Neg (NEG) Urine Amphetamine/Methamphetamine Neg (NEG) Urine Benzodiazepines Screen Neg (NEG) Urine Cocaine Screen Neg (NEG) Urine Cannabinoids Screen Neg (NEG) Urine Ethyl Alcohol Neg (NEG) Nasal Screen MRSA (PCR) Negative (Negative) Troponin I Quantitative < 0.017 ng/mL (0-0.055) White Blood Count 8.0 x10^3/uL (4.0-11.0) Red Blood Count 4.11 x10^6/uL (4.30-5.70) Hemoglobin 12.9 g/dL (13.0-17.5) Hematocrit 38.2 % (39.0-53.0) Mean Corpuscular Volume 93 fL (79-100) Mean Corpuscular Hemoglobin 32 pg (25-35) Mean Corpuscular Hemoglobin Concent 34 g/dL (31-37) Red Cell Distribution Width 13.5 % (11.5-14.5) Platelet Count 176 x10^3/uL (140-400) Sodium Level 138 mmol/L (136-145) Potassium Level 4.0 mmol/L (3.5-5.1) Chloride Level 100 mmol/L (98-107) Carbon Dioxide Level 28 mmol/L (21-32) Anion Gap 10 (6-14) Blood Urea Nitrogen 12 mg/dL (8-26) Creatinine 0.8 mg/dL (0.7-1.3) Estimated GFR (Cockcroft-Gault) 94.5 BUN/Creatinine Ratio 15 (6-20) Glucose Level 128 mg/dL (70-99) Calcium Level 8.7 mg/dL (8.5-10.1) Total Bilirubin 0.3 mg/dL (0.2-1.0) Aspartate Amino Transf (AST/SGOT) 15 U/L (15-37) Alanine Aminotransferase (ALT/SGPT) 19 U/L (16-63) Alkaline Phosphatase 70 U/L (46-116) Total Protein 6.5 g/dL (6.4-8.2) Albumin 3.6 g/dL (3.4-5.0) Albumin/Globulin Ratio 1.2 (1.0-1.7) Microbiology 05/12/18 Blood Culture - Preliminary, Resulted NO GROWTH AFTER 1 DAY... Medications Current Medications Aspirin (Children'S Aspirin) 324 mg 1X ONCE PO Last administered on 05/12/18at 03:49; Start 05/12/18 at 04:00; Stop 05/12/18 at 04:01; Status DC Lactated Ringer's 1,000 ml @ 100 mls/hr Q10H IV Last administered on at 03:51; Start 05/12/18 at 04:00; Stop 05/12/18 at 13:59; Status DC Methylprednisolone Sodium Succinate (SOLU-Medrol 125MG VIAL) 125 mg 1X ONCE IV Last administered on 05/12/18at 03:50; Start 05/12/18 at 04:00; Stop 05/12/18 at 04:01; Status DC Albuterol/ Ipratropium (Duoneb) 3 ml 1X ONCE NEB Last administered on at 03:35; Start 05/12/18 at 04:00; Stop 05/12/18 at 04:01; Status DC Ceftriaxone Sodium 1 gm/ Sodium Chloride 50 ml @ 100 mls/hr 1X ONCE IV Last administered on 05/12/18at 03:50; Start 05/12/18 at 04:00; Stop 05/12/18 at 04:29 ; Status DC Enoxaparin Sodium (Lovenox 120mg Syringe) 120 mg 1X ONCE SQ Last administered on 05/12/18at 03:50; Start 05/12/18 at 04:00; Stop 05/12/18 at 04:01; Status DC Sodium Chloride 50 ml @ As Directed STK-MED ONCE .ROUTE ; Start 05/12/18 at 03: 44; Stop 05/12/18 at 03:45; Status DC Ceftriaxone Sodium (Rocephin) 1 gm STK-MED ONCE .ROUTE ; Start 05/12/18 at 03:44 ; Stop 05/12/18 at 03:45; Status DC Diltiazem HCl (Cardizem Iv Push) 10 mg 1X ONCE IVP Last administered on at 04:10; Start 05/12/18 at 04:00; Stop 05/12/18 at 04:01; Status DC Diltiazem HCl 125 mg/Dextrose 125 ml @ 5 mls/hr CONT PRN IV SEE I/O RECORD Last administered on 05/13/18at 12:19; Start 05/12/18 at 04:30 Diltiazem HCl (Cardizem Iv Push) 10 mg 1X ONCE IVP ; Start 05/12/18 at 05:00; Stop 05/12/18 at 05:02; Status DC Dextrose 100 ml @ As Directed STK-MED ONCE IV ; Start 05/12/18 at 04:31; Stop 05/12/18 at 04:32; Status DC Diltiazem HCl (Cardizem) 125 mg STK-MED ONCE IV ; Start 05/12/18 at 04:31; Stop 05/12/18 at 04:32; Status DC Ondansetron HCl (Zofran) 4 mg PRN Q4HRS PRN IV NAUSEA/VOMITING; Start 05/12/18 at 04:30; Stop 05/13/18 at 04:29; Status DC Albuterol/ Ipratropium (Duoneb) 3 ml RTQID NEB Last administered on 05/13/18at 16:11; Start 05/12/18 at 08:00 Aspirin (Children'S Aspirin) 81 mg DAILY PO Last administered on 05/13/18at 09: 31; Start 05/13/18 at 09:00 Methylprednisolone Sodium Succinate (SOLU-Medrol 125MG VIAL) 50 mg DAILY IV Last administered on 05/13/18at 09:32; Start 05/12/18 at 09:00; Stop 05/13/18 at 15:32; Status DC Enoxaparin Sodium (Lovenox 120mg Syringe) 120 mg BID SQ ; Start 05/12/18 at 21: 00; Status Cancel Ceftriaxone Sodium 1 gm/ Sodium Chloride 50 ml @ 100 mls/hr QHS IV ; Start at 21:00; Status Cancel Azithromycin (Zithromax) 250 mg DAILY PO Last administered on 05/12/18at 11:18; Start 05/12/18 at 09:00; Stop 05/12/18 at 17:19; Status DC Info (Anti-Coagulation Monitoring By Pharmacy) 1 each PRN DAILY PRN MC SEE COMMENTS; Start 05/12/18 at 04:45 Lactobacillus Rhamnosus (Culturelle) 1 cap BID PO Last administered on at 09:31; Start 05/12/18 at 09:00 Furosemide (Lasix) 40 mg 1X ONCE IVP Last administered on 05/12/18at 11:18; Start 05/12/18 at 11:00; Stop 05/12/18 at 11:08; Status DC Potassium Chloride (Klor-Con) 20 meq 1X ONCE PO Last administered on at 11:18; Start 05/12/18 at 11:00; Stop 05/12/18 at 11:08; Status DC Ceftriaxone Sodium 1 gm/ Sodium Chloride 50 ml @ 100 mls/hr Q24H IV Last administered on 05/12/18at 20:50; Start 05/12/18 at 21:00 Apixaban (Eliquis) 5 mg BID PO Last administered on 05/13/18at 09:32; Start at 21:00 Azithromycin (Zithromax) 250 mg DAILY PO Last administered on 05/13/18at 09:32; Start 05/13/18 at 09:00 Benzonatate (Tessalon Perle) 100 mg [id number] PO Last administered on 05/13/18at 15 :23; Start 05/12/18 at 17:15 Methylprednisolone Sodium Succinate (SOLU-Medrol 40MG VIAL) 40 mg Q8H IV Last administered on 05/13/18at 18:28; Start 05/13/18 at 17:00 Guaifenesin (Mucinex Er) 600 mg BID PO ; Start 05/13/18 at 21:00 Montelukast Sodium (Singulair) 10 mg QHS PO ; Start 05/13/18 at 21:00 Budesonide (Pulmicort) 0.5 mg RTBID NEB ; Start 05/13/18 at 20:00 Albuterol Sulfate (Ventolin) 2.5 mg PRN Q2HR PRN NEB SHORTNESS OF BREATH; Start 05/13/18 at 15:45 Active Scripts Active Reported No Known Medications Prior To Admisstion (Info) Each 1 Each 1X Vitals/I & O Vital Sign - Last 24 Hours 05/12/18 05/12/18 05/12/18 05/12/18 20:00 20:35 21:00 22:06 Pulse 78 96 94 Resp 24 24 20 B/P (MAP) 121/59 (79) 126/58 (80) 105/45 (65) Pulse Ox 94 95 95 93 O2 Delivery Nasal Cannula Nasal Cannula Nasal Cannula Nasal Cannula O2 Flow Rate 3.0 3.0 3.0 3.0 05/12/18 05/12/18 05/13/18 05/13/18 23:03 23:35 01:35 02:40 Pulse 94 104 110 Resp 24 22 22 B/P (MAP) 101/49 (66) 141/68 (92) 169/78 (108) Pulse Ox 94 96 97 O2 Delivery Nasal Cannula Nasal Cannula Nasal Cannula Nasal Cannula O2 Flow Rate 3.0 3.0 3.0 3.0 05/13/18 05/13/18 05/13/18 05/13/18 03:45 03:45 04:40 04:53 Temp 99.8 Pulse 97 112 Resp 22 24 B/P (MAP) 148/68 (94) 174/75 (108) Pulse Ox 95 98 97 O2 Delivery Nasal Cannula Nasal Cannula Nasal Cannula Nasal Cannula O2 Flow Rate 3.0 3.0 3.0 4.0 05/13/18 05/13/18 05/13/18 05/13/18 05:50 06:45 08:00 08:22 Temp 98.7 Pulse 106 97 139 Resp 22 22 22 B/P (MAP) 137/63 (87) 141/69 (93) 137/64 (88) Pulse Ox 94 94 90 O2 Delivery Nasal Cannula Nasal Cannula Nasal Cannula Nasal Cannula O2 Flow Rate 3.0 3.0 3.0 3.0 05/13/18 05/13/18 05/13/18 05/13/18 09:00 10:00 10:21 11:04 Pulse 114 110 109 Resp 31 37 20 B/P (MAP) 140/53 (82) Pulse Ox 91 93 94 92 O2 Delivery Nasal Cannula Nasal Cannula Nasal Cannula Nasal Cannula O2 Flow Rate 3.0 3.0 3.0 93.0 05/13/18 05/13/18 05/13/18 05/13/18 12:00 12:14 13:00 14:00 Temp 99.5 99.5 Pulse 109 96 93 Resp 30 22 30 B/P (MAP) 140/53 (82) 153/74 (100) 132/60 (84) Pulse Ox 92 93 94 O2 Delivery Nasal Cannula Nasal Cannula Nasal Cannula O2 Flow Rate 3.0 2.0 2.0 3.0 05/13/18 05/13/18 05/13/18 05/13/18 15:00 16:00 16:00 16:12 Pulse 96 84 Resp 33 28 Pulse Ox 93 97 93 O2 Delivery Nasal Cannula Nasal Cannula Nasal Cannula Nasal Cannula O2 Flow Rate 2.0 3.0 2.0 05/13/18 05/13/18 17:00 18:00 Pulse 102 97 Resp 26 23 B/P (MAP) 136/54 (81) 158/68 (98) Pulse Ox 98 93 O2 Delivery Nasal Cannula Nasal Cannula O2 Flow Rate 2.0 2.0 Intake and Output 05/12/18 05/12/18 05/13/18 14:59 22:59 06:59 Intake Total 490 ml 1314 ml 885 ml Output Total 1500 ml 600 ml 450 ml Balance -1010 ml 714 ml 435 ml JIMENEZ BOLAÑOS FLOOD CONTROL ENGINEER May 13, 2018 19:20
[2018-05-13] MEDS: BUDESONIDE 0.5 MG/2 ML NEBU NEB SCH (20:24)
[2018-05-13] MEDS: MONTELUKAST 10 MG TABLET. PO SCH (20:43)
--- NOTE | 2018-05-13 22:26 | EKG ---
[address] [address] Test Date: 2018-05-12 Test Time: 03:28:13 Pat Name: HASEEB DYER Department: Room: ICU03 1 Gender: M Assistant Project Engineer: BRODIE : 1945 Requested By: HASEEB EUCEDA Order Number: [id number] Reading MD: Endy Mcdaniels MD Measurements Intervals [place] Rate: 120 P: NC: QRS: 73 QRSD: 126 T: 6 QT: 330 QTc: 471 Interpretive Statements POSSIBLE ATRIAL FIB RBBB Electronically Signed On 05-19-2018 9:53:41 CDT by Endy Mcdaniels MD
[2018-05-14] VITALS (20 sets, daily range): BP systolic 98–165; BP diastolic 46–84
[2018-05-14] MEDS: methylPREDNISolone SOD SUCC PF 40 MG/ML VIAL. IV SCH ×3 (01:30→16:51)
[2018-05-14] MEDS: IPRATRPIUM/ALBUTEROL 0.5/2.5MG 3 ML NEBU. NEB SCH ×4 (05:12→20:17)
[2018-05-14 05:53] LABS: ALBUMIN 3.6 g/dL (3.4-5.0); CREATININE 0.7 mg/dL (0.7-1.3); GFR 110.2; POTASSIUM 4.7 mmol/L (3.5-5.1); TOTAL BILIRUBIN 0.5 mg/dL (0.2-1.0); TOTAL PROTEIN 7.1 g/dL (6.4-8.2)
[2018-05-14 06:12] LABS: HEMATOCRIT 39.7 % (39.0-53.0); HEMOGLOBIN 13.6 g/dL (13.0-17.5); RED BLOOD COUNT 4.35 x10^6/uL (4.30-5.70); RED CELL DISTRIBUTION WIDTH 13.4 % (11.5-14.5); WHITE BLOOD COUNT 6.1 x10^3/uL (4.0-11.0)
--- NOTE | 2018-05-14 07:09 | PN ---
DATE: 05/13/2018 SUBJECTIVE: The patient is sitting in his chair comfortably. He said that he has been very short of breath with marked chest tightness and wheezing together with the cough that he was unable to sleep last night and this morning, although he is feeling much better this afternoon. PHYSICAL EXAMINATION: GENERAL: When I examined him, he looked well and was clearly in no apparent respiratory distress, pale, but no jaundice, cyanosis, or thyromegaly. No jugular venous distension. No lower limb edema. VITAL SIGNS: His heart rate was 96, blood pressure 153/74, temperature was 99.5, respiratory rate was 22 and oxygen saturation was 93%. HEAD, EYES, EARS, NOSE AND THROAT: Showed normocephalic, atraumatic. NECK: Supple. HEART: Showed normal first and second heart sounds with no gallop, rub or murmur. CHEST: Shows central trachea, equal bilateral expansion, air entry with bilateral scattered rhonchi. I could not appreciate any crepitation. ABDOMEN: Distended, soft, nontender. NEUROLOGIC: He was awake, alert, responding appropriately. All cranial nerves intact. He moves extremities without difficulty, ambulates without assistance or assistive devices. His intake over the last 24 hours was 2700 and output was 2550. LABORATORY DATA: Her lab work this morning showed a white cell count of 8000, hemoglobin 13, hematocrit 38, MCV 93, and platelet count of 176,000. Serum sodium was 138, potassium 4, chloride 100, bicarbonate 28, anion gap of 10, BUN 12, creatinine 0.8, estimated GFR was 94 mL per minute, his glucose 128, calcium was 8.7. His total bilirubin, AST, ALT, alkaline phosphatase were normal. Total protein was 6.5, albumin was 3.6. His blood gases yesterday showed a pH of 7.39, pCO2 of 36, pO2 of 91, bicarbonate 22, oxygen saturation was 97% on FiO2 of 36%. His influenza A and B were negative. His nasal screen for MRSA by PCR was negative. Toxic screen was negative and urinalysis is unremarkable. ASSESSMENT: 1. Atrial fibrillation with rapid ventricular response for which he continues to be on Cardizem drip. 2. Chronic obstructive pulmonary disease exacerbation. 3. Hypertension. 4. Aortic valve disease. 5. Prostate cancer, status post chemotherapy. 6. He is also known to have benign prostatic hypertrophy. PLAN: My plan is to continue with IV antibiotic. I will increase his steroids to 40 mg 3 times a day, add Singulair and Mucinex. MADELYN MALONEY MD DR: HI/aissatou JOB#: [id number] / [id number]
[2018-05-14] MEDS: BUDESONIDE 0.5 MG/2 ML NEBU NEB SCH ×2 (08:00→20:17)
[2018-05-14] MEDS: AZITHROMYCIN 250 MG TABLET. PO SCH (08:40)
[2018-05-14] MEDS: BENZONATATE 100 MG CAPSULE. PO SCH ×3 (08:40→20:35)
[2018-05-14] MEDS: LACTOBACILLUS RHAMNOSUS GG 1 CAPSULE. PO SCH ×2 (08:40→20:35)
[2018-05-14] MEDS: APIXABAN 5 MG TABLET. PO SCH ×2 (08:40→20:35)
[2018-05-14] MEDS: ASPIRIN 81 MG TAB.CHEW PO SCH (08:40)
[2018-05-14] MEDS: POLYETHYLENE GLYCOL 3350 17 GM PACKET. PO SCH (08:41)
[2018-05-14] MEDS: METOPROLOL TART IMMED RELEASE 25 MG TABLET PO SCH (16:51)
--- NOTE | 2018-05-14 17:44 | PDOC ---
PROGRESS NOTES Diagnosis Problem Problems Medical Problems: (1) Dyspnea Status: Acute (2) Respiratory failure with hypoxia Status: Acute DRAGON assessment and plan: atrial fibrillation with RVR -Cardiology consult -Continue diltiazem drip and try to taper off -Possibly placing him on oral Cardizem versus metoprolol tomorrow per cardiology -The patient will need some type of anticoagulation on discharge, NOAC vs warfarin depending on cost COPD exacerbation -Continue breathing treatments -Continue steroids -Mucinex -Smoking cessation--counseled Hypertension -Continue current regimen Prostate cancer status post chemotherapy Assessment Problems Medical Problems: (1) Dyspnea Status: Acute (2) Respiratory failure with hypoxia Status: Acute Objective Vital Signs Date Time Temp Pulse Resp B/P (MAP) Pulse Ox O2 Delivery O2 Flow Rate FiO2 05/14/18 16:51 96 162/68 05/14/18 16:10 Nasal Cannula 3.0 05/14/18 15:14 96 05/14/18 07:00 17 05/14/18 04:30 98.6 Intake and Output 05/14/18 06:59 Intake Total 3975 ml Output Total 4600 ml Balance -625 ml Intake Oral 3800 ml IV Total 175 ml Output Urine Total 4600 ml # Voids 1 Physical Exam alert oriented 3, no acute distress PERRLA, EOMI Irregularly irregular Diminished bilaterally Positive bowel sounds, nontender, nondistended Cranial nerves II to XII grossly intact Review of Relevant I have reviewed the following items ivon (where applicable) has been applied. Labs Laboratory Tests Test 05/13/18 05:40 05/14/18 05:15 05/14/18 05:20 White Blood Count 8.0 x10^3/uL (4.0-11.0) 6.1 x10^3/uL (4.0-11.0) Red Blood Count 4.11 x10^6/uL (4.30-5.70) 4.35 x10^6/uL (4.30-5.70) Hemoglobin 12.9 g/dL (13.0-17.5) 13.6 g/dL (13.0-17.5) Hematocrit 38.2 % (39.0-53.0) 39.7 % (39.0-53.0) Mean Corpuscular Volume 93 fL (79-100) 91 fL (79-100) Mean Corpuscular Hemoglobin 32 pg (25-35) 31 pg (25-35) Mean Corpuscular Hemoglobin Concent 34 g/dL (31-37) 34 g/dL (31-37) Red Cell Distribution Width 13.5 % (11.5-14.5) 13.4 % (11.5-14.5) Platelet Count 176 x10^3/uL (140-400) 176 x10^3/uL (140-400) Sodium Level 138 mmol/L (136-145) 137 mmol/L (136-145) Potassium Level 4.0 mmol/L (3.5-5.1) 4.7 mmol/L (3.5-5.1) Chloride Level 100 mmol/L (98-107) 100 mmol/L (98-107) Carbon Dioxide Level 28 mmol/L (21-32) 27 mmol/L (21-32) Anion Gap 10 (6-14) 10 (6-14) Blood Urea Nitrogen 12 mg/dL (8-26) 12 mg/dL (8-26) Creatinine 0.8 mg/dL (0.7-1.3) 0.7 mg/dL (0.7-1.3) Estimated GFR (Cockcroft-Gault) 94.5 110.2 BUN/Creatinine Ratio 15 (6-20) 17 (6-20) Glucose Level 128 mg/dL (70-99) 162 mg/dL (70-99) Calcium Level 8.7 mg/dL (8.5-10.1) 9.0 mg/dL (8.5-10.1) Total Bilirubin 0.3 mg/dL (0.2-1.0) 0.5 mg/dL (0.2-1.0) Aspartate Amino Transf (AST/SGOT) 15 U/L (15-37) 22 U/L (15-37) Alanine Aminotransferase (ALT/SGPT) 19 U/L (16-63) 21 U/L (16-63) Alkaline Phosphatase 70 U/L (46-116) 72 U/L (46-116) Total Protein 6.5 g/dL (6.4-8.2) 7.1 g/dL (6.4-8.2) Albumin 3.6 g/dL (3.4-5.0) 3.6 g/dL (3.4-5.0) Albumin/Globulin Ratio 1.2 (1.0-1.7) 1.0 (1.0-1.7) Magnesium Level 2.2 mg/dL (1.8-2.4) Microbiology 05/12/18 Blood Culture - Preliminary, Resulted NO GROWTH AFTER 2 DAYS... 05/12/18 Throat Screen - Final, Complete 05/12/18 Throat Culture - Final, Complete Medications Current Medications Aspirin (Children'S Aspirin) 324 mg 1X ONCE PO Last administered on 05/12/18at 03:49; Start 05/12/18 at 04:00; Stop 05/12/18 at 04:01; Status DC Lactated Ringer's 1,000 ml @ 100 mls/hr Q10H IV Last administered on at 03:51; Start 05/12/18 at 04:00; Stop 05/12/18 at 13:59; Status DC Methylprednisolone Sodium Succinate (SOLU-Medrol 125MG VIAL) 125 mg 1X ONCE IV Last administered on 05/12/18at 03:50; Start 05/12/18 at 04:00; Stop 05/12/18 at 04:01; Status DC Albuterol/ Ipratropium (Duoneb) 3 ml 1X ONCE NEB Last administered on at 03:35; Start 05/12/18 at 04:00; Stop 05/12/18 at 04:01; Status DC Ceftriaxone Sodium 1 gm/ Sodium Chloride 50 ml @ 100 mls/hr 1X ONCE IV Last administered on 05/12/18at 03:50; Start 05/12/18 at 04:00; Stop 05/12/18 at 04:29 ; Status DC Enoxaparin Sodium (Lovenox 120mg Syringe) 120 mg 1X ONCE SQ Last administered on 05/12/18at 03:50; Start 05/12/18 at 04:00; Stop 05/12/18 at 04:01; Status DC Sodium Chloride 50 ml @ As Directed STK-MED ONCE .ROUTE ; Start 05/12/18 at 03: 44; Stop 05/12/18 at 03:45; Status DC Ceftriaxone Sodium (Rocephin) 1 gm STK-MED ONCE .ROUTE ; Start 05/12/18 at 03:44 ; Stop 05/12/18 at 03:45; Status DC Diltiazem HCl (Cardizem Iv Push) 10 mg 1X ONCE IVP Last administered on at 04:10; Start 05/12/18 at 04:00; Stop 05/12/18 at 04:01; Status DC Diltiazem HCl 125 mg/Dextrose 125 ml @ 5 mls/hr CONT PRN IV SEE I/O RECORD Last administered on 05/13/18at 21:01; Start 05/12/18 at 04:30 Diltiazem HCl (Cardizem Iv Push) 10 mg 1X ONCE IVP ; Start 05/12/18 at 05:00; Stop 05/12/18 at 05:02; Status DC Dextrose 100 ml @ As Directed STK-MED ONCE IV ; Start 05/12/18 at 04:31; Stop 05/12/18 at 04:32; Status DC Diltiazem HCl (Cardizem) 125 mg STK-MED ONCE IV ; Start 05/12/18 at 04:31; Stop 05/12/18 at 04:32; Status DC Ondansetron HCl (Zofran) 4 mg PRN Q4HRS PRN IV NAUSEA/VOMITING; Start 05/12/18 at 04:30; Stop 05/13/18 at 04:29; Status DC Albuterol/ Ipratropium (Duoneb) 3 ml RTQID NEB Last administered on 05/14/18at 15:14; Start 05/12/18 at 08:00 Aspirin (Children'S Aspirin) 81 mg DAILY PO Last administered on 05/14/18at 08: 40; Start 05/13/18 at 09:00 Methylprednisolone Sodium Succinate (SOLU-Medrol 125MG VIAL) 50 mg DAILY IV Last administered on 05/13/18at 09:32; Start 05/12/18 at 09:00; Stop 05/13/18 at 15:32; Status DC Enoxaparin Sodium (Lovenox 120mg Syringe) 120 mg BID SQ ; Start 05/12/18 at 21: 00; Status Cancel Ceftriaxone Sodium 1 gm/ Sodium Chloride 50 ml @ 100 mls/hr QHS IV ; Start at 21:00; Status Cancel Azithromycin (Zithromax) 250 mg DAILY PO Last administered on 05/12/18at 11:18; Start 05/12/18 at 09:00; Stop 05/12/18 at 17:19; Status DC Info (Anti-Coagulation Monitoring By Pharmacy) 1 each PRN DAILY PRN MC SEE COMMENTS; Start 05/12/18 at 04:45; Status Cancel Lactobacillus Rhamnosus (Culturelle) 1 cap BID PO Last administered on 08:40; Start 05/12/18 at 09:00 Furosemide (Lasix) 40 mg 1X ONCE IVP Last administered on 05/12/18 11:18; Start 05/12/18 at 11:00; Stop 05/12/18 at 11:08; Status DC Potassium Chloride (Klor-Con) 20 meq 1X ONCE PO Last administered on 11:18; Start 05/12/18 at 11:00; Stop 05/12/18 at 11:08; Status DC Ceftriaxone Sodium 1 gm/ Sodium Chloride 50 ml @ 100 mls/hr Q24H IV Last administered on 05/13/18 20:43; Start 05/12/18 at 21:00 Apixaban (Eliquis) 5 mg BID PO Last administered on 05/14/18 08:40; Start at 21:00 Azithromycin (Zithromax) 250 mg DAILY PO Last administered on 05/14/18 08:40; Start 05/13/18 at 09:00 Benzonatate (Tessalon Perle) 100 mg [id number] PO Last administered on 05/14/18 14 :07; Start 05/12/18 at 17:15 Methylprednisolone Sodium Succinate (SOLU-Medrol 40MG VIAL) 40 mg Q8H IV Last administered on 05/14/18 16:51; Start 05/13/18 at 17:00 Guaifenesin (Mucinex Er) 600 mg BID PO Last administered on 05/14/18 08:40; Start 05/13/18 at 21:00 Montelukast Sodium (Singulair) 10 mg QHS PO Last administered on 05/13/18 20: 43; Start 05/13/18 at 21:00 Budesonide (Pulmicort) 0.5 mg RTBID NEB Last administered on 05/14/18 08:00; Start 05/13/18 at 20:00 Albuterol Sulfate (Ventolin) 2.5 mg PRN Q2HR PRN NEB SHORTNESS OF BREATH; Start 05/13/18 at 15:45 Polyethylene Glycol (miraLAX) 17 gm DAILY PO Last administered on 05/14/18at 08: 41; Start 05/14/18 at 09:00 Metoprolol Tartrate (Lopressor) 25 mg Q6HRS PO Last administered on 05/14/18at 16:51; Start 05/14/18 at 18:00 Active Scripts Active Reported No Known Medications Prior To Admisstion (Info) Each 1 Each 1X Vitals/I & O Vital Sign - Last 24 Hours 05/13/18 05/13/18 05/13/18 05/13/18 18:00 19:30 20:13 20:20 Temp 98.6 Pulse 97 90 78 Resp 23 B/P (MAP) 158/68 (98) 118/63 (81) 149/66 (93) Pulse Ox 93 95 94 O2 Delivery Nasal Cannula Nasal Cannula Nasal Cannula Nasal Cannula O2 Flow Rate 2.0 2.0 2.0 2.0 05/13/18 05/13/18 05/13/18 05/13/18 20:25 21:32 22:15 23:19 Temp 98.6 Pulse 88 81 93 Resp 26 B/P (MAP) 148/68 (94) 136/70 (92) 144/78 (100) Pulse Ox 94 96 96 95 O2 Delivery Nasal Cannula Nasal Cannula Nasal Cannula Nasal Cannula O2 Flow Rate 2.0 2.0 2.0 3.0 05/13/18 05/14/18 05/14/18 05/14/18 23:21 00:35 01:20 02:23 Pulse 81 77 76 Resp 23 B/P (MAP) 138/53 (81) 120/65 (83) 116/60 (78) Pulse Ox 96 95 95 O2 Delivery Nasal Cannula Nasal Cannula Nasal Cannula Nasal Cannula O2 Flow Rate 3.0 3.0 3.0 3.0 05/14/18 05/14/18 05/14/18 05/14/18 03:15 04:17 04:30 04:32 Temp 98.6 Pulse 72 76 Resp B/P (MAP) 128/54 (78) 145/77 (99) Pulse Ox 96 96 O2 Delivery Nasal Cannula Nasal Cannula Nasal Cannula O2 Flow Rate 3.0 3.0 3.0 05/14/18 05/14/18 05/14/18 05/14/18 05:14 05:16 06:19 06:31 Pulse 81 94 93 Resp 16 19 16 B/P (MAP) 149/84 (105) 98/46 (63) 110/51 (70) Pulse Ox 96 97 94 93 O2 Delivery Nasal Cannula Nasal Cannula Nasal Cannula Nasal Cannula O2 Flow Rate 2.0 3.0 3.0 3.0 05/14/18 05/14/18 05/14/18 05/14/18 07:00 08:12 08:14 09:24 Pulse 88 107 Resp 17 B/P (MAP) 105/46 (65) 113/61 (78) Pulse Ox 93 95 O2 Delivery Nasal Cannula Nasal Cannula Nasal Cannula O2 Flow Rate 3.0 3.0 2.0 05/14/18 05/14/18 05/14/18 05/14/18 12:00 12:00 13:24 15:14 Pulse 87 92 B/P (MAP) 148/78 (101) Pulse Ox 96 O2 Delivery Nasal Cannula Nasal Cannula O2 Flow Rate 3.0 1.5 05/14/18 05/14/18 05/14/18 05/14/18 15:21 16:10 16:11 16:51 Pulse 93 96 96 B/P (MAP) 162/68 (99) 162/68 O2 Delivery Nasal Cannula O2 Flow Rate 3.0 Intake and Output 05/13/18 05/13/18 05/14/18 14:59 22:59 06:59 Intake Total 750 ml 1625 ml 1600 ml Output Total 475 ml 1700 ml 2425 ml Balance 275 ml -75 ml -825 ml AMY BAZZI MD May 14, 2018 17:44
[2018-05-14] MEDS: dilTIAZem VIAL 125 MG in IV DEXTROSE 5% 100 ML IV PRN (19:16)
[2018-05-14] MEDS: MONTELUKAST 10 MG TABLET. PO SCH (20:35)
--- NOTE | 2018-05-14 23:50 | PDOC ---
PROVIDER NOTE PROVIDER NOTE PROVIDER NOTE S: Continues to have cough, dyspnea and wheezing. No chest pain. Overnight with few PVC's. O: VSS Bilateral rhonchi/wheezing Irregular rhythm w/o murmurs 1+LE edema. Labs reviewed. Meds noted: Winnie Chantale, was on dilt gtt. Impression: 1. Persisetnt afib. s/p pacer for many years 2. HTN 3. COPD exacerbation. 4. Prior bioprosthetic valve Plan 1. Will have determine affordable anticoagulation 2. Continue metoprolol for now. Upon DC, based on rate control, likely Metoprolol 50mg bid. 3. Agree with eliquis if patient can afford it. Thanks. JAMES STEVENSON MD May 14, 2018 23:50
[2018-05-15] VITALS (9 sets, daily range): BP systolic 106–160; BP diastolic 59–89
[2018-05-15] MEDS: methylPREDNISolone SOD SUCC PF 40 MG/ML VIAL. IV SCH (00:35)
[2018-05-15] MEDS: METOPROLOL TART IMMED RELEASE 25 MG TABLET PO SCH ×2 (00:35→05:53)
[2018-05-15] MEDS: IPRATRPIUM/ALBUTEROL 0.5/2.5MG 3 ML NEBU. NEB SCH ×2 (05:25→09:25)
[2018-05-15] MEDS ORDERED: predniSONE 20 MG TABLET PO SCH (09:00)
[2018-05-15] MEDS: POLYETHYLENE GLYCOL 3350 17 GM PACKET. PO SCH (09:04)
[2018-05-15] MEDS: APIXABAN 5 MG TABLET. PO SCH (09:04)
[2018-05-15] MEDS: AZITHROMYCIN 250 MG TABLET. PO SCH (09:04)
[2018-05-15] MEDS: ASPIRIN 81 MG TAB.CHEW PO SCH (09:04)
[2018-05-15] MEDS: BENZONATATE 100 MG CAPSULE. PO SCH (09:05)
[2018-05-15] MEDS: LACTOBACILLUS RHAMNOSUS GG 1 CAPSULE. PO SCH (09:05)
[2018-05-15] MEDS: BUDESONIDE 0.5 MG/2 ML NEBU NEB SCH (09:25)
[2018-05-15] MEDS ORDERED: CIPR500T PO (09:40)
[2018-05-15] MEDS ORDERED: METO50TA6 PO (09:40)
[2018-05-15] MEDS ORDERED: APIX5TAB3 PO (09:40)
[2018-05-15] MEDS ORDERED: GUAI600T47 PO (09:40)
[2018-05-15] MEDS ORDERED: PRED-220 PO (09:40)
--- NOTE | 2018-05-15 09:43 | DISCH ---
DISCHARGE INSTRUCTIONS-DC Condition on Discharge Condition on Discharge: Stable Activity after Discharge Activity Instructions for Disc: No restrictions Diet after Discharge Diet after Discharge: Cardiac Checks after Discharge Checks after discharge: Check blood press - daily Contacting the DRBlayne after DC Call your doctor for: If your condition worsens Follow-Up Follow up with: Cardiology in a month AMY BAZZI MD May 15, 2018 09:43
[2018-05-16] MEDS ORDERED: FURO-68 PO (05:20)
[2018-05-16] MEDS ORDERED: LISI10TA2 PO (05:20)
[2018-05-16] MEDS ORDERED: ALBU2.5V8 INH (05:37)
[2018-05-16] MEDS ORDERED: PRED20TA PO (05:37)
--- NOTE | 2018-05-26 16:52 | PDOC3 ---
Discharge Summary Visit Information Date of Admission: May 12, 2018 Date of Discharge: May 15, 2018 Admitting Diagnosis: atrial fibrillation with RVR Admitting Diagnosis Comments The patient is a 72-year-old male that was admitted to the hospital with mild acute diastolic heart failure from atrial fibrillation with RVR. He has history of hypertension and COPD. Cardiology was consulted, he was placed on diltiazem drip. He was doing very well and then he was changed to oral diltiazem. The patient was placed on Eliquis. He was also treated for COPD exacerbation with such mild. He was on breathing treatments, steroids, Mucinex and he was counseled to stop smoking. The patient was cleared by cardiology for discharge, he was discharged in a stable manner. Final Diagnosis Problems Medical Problems: (1) Dyspnea Status: Acute (2) Respiratory failure with hypoxia Status: Acute Brief Hospital Course Allergies Allergies Coded Allergies Type Severity Reaction Last Updated Verified No Known Drug Allergies 05/12/18 No Brief Hospital Course The patient is a 72-year-old male that was admitted to the hospital with mild acute diastolic heart failure from atrial fibrillation with RVR. He has history of hypertension and COPD. Cardiology was consulted, he was placed on diltiazem drip. He was doing very well and then he was changed to oral diltiazem. The patient was placed on Eliquis. He was also treated for COPD exacerbation with such mild. He was on breathing treatments, steroids, Mucinex and he was counseled to stop smoking. The patient was cleared by cardiology for discharge, he was discharged in a stable manner. Discharge Information Condition at Discharge: Improved Dischare Medications Current Medications Aspirin (Children'S Aspirin) 324 mg 1X ONCE PO Last administered on 05/12/18at 03:49; Start 05/12/18 at 04:00; Stop 05/12/18 at 04:01; Status DC Lactated Ringer's 1,000 ml @ 100 mls/hr Q10H IV Last administered on at 03:51; Start 05/12/18 at 04:00; Stop 05/12/18 at 13:59; Status DC Methylprednisolone Sodium Succinate (SOLU-Medrol 125MG VIAL) 125 mg 1X ONCE IV Last administered on 05/12/18at 03:50; Start 05/12/18 at 04:00; Stop 05/12/18 at 04:01; Status DC Albuterol/ Ipratropium (Duoneb) 3 ml 1X ONCE NEB Last administered on at 03:35; Start 05/12/18 at 04:00; Stop 05/12/18 at 04:01; Status DC Ceftriaxone Sodium 1 gm/ Sodium Chloride 50 ml @ 100 mls/hr 1X ONCE IV Last administered on 05/12/18at 03:50; Start 05/12/18 at 04:00; Stop 05/12/18 at 04:29 ; Status DC Enoxaparin Sodium (Lovenox 120mg Syringe) 120 mg 1X ONCE SQ Last administered on 05/12/18at 03:50; Start 05/12/18 at 04:00; Stop 05/12/18 at 04:01; Status DC Sodium Chloride 50 ml @ As Directed STK-MED ONCE .ROUTE ; Start 05/12/18 at 03: 44; Stop 05/12/18 at 03:45; Status DC Ceftriaxone Sodium (Rocephin) 1 gm STK-MED ONCE .ROUTE ; Start 05/12/18 at 03:44 ; Stop 05/12/18 at 03:45; Status DC Diltiazem HCl (Cardizem Iv Push) 10 mg 1X ONCE IVP Last administered on at 04:10; Start 05/12/18 at 04:00; Stop 05/12/18 at 04:01; Status DC Diltiazem HCl 125 mg/Dextrose 125 ml @ 5 mls/hr CONT PRN IV SEE I/O RECORD Last administered on 05/14/18at 19:16; Start 05/12/18 at 04:30; Stop 05/15/18 at 10:55; Status DC Diltiazem HCl (Cardizem Iv Push) 10 mg 1X ONCE IVP ; Start 05/12/18 at 05:00; Stop 05/12/18 at 05:02; Status DC Dextrose 100 ml @ As Directed STK-MED ONCE IV ; Start 05/12/18 at 04:31; Stop 05/12/18 at 04:32; Status DC Diltiazem HCl (Cardizem) 125 mg STK-MED ONCE IV ; Start 05/12/18 at 04:31; Stop 05/12/18 at 04:32; Status DC Ondansetron HCl (Zofran) 4 mg PRN Q4HRS PRN IV NAUSEA/VOMITING; Start 05/12/18 at 04:30; Stop 05/13/18 at 04:29; Status DC Albuterol/ Ipratropium (Duoneb) 3 ml RTQID NEB Last administered on 05/15/18at 09:25; Start 05/12/18 at 08:00; Stop 05/15/18 at 10:55; Status DC Aspirin (Children'S Aspirin) 81 mg DAILY PO Last administered on 05/15/18at 09: 04; Start 05/13/18 at 09:00; Stop 05/15/18 at 10:55; Status DC Methylprednisolone Sodium Succinate (SOLU-Medrol 125MG VIAL) 50 mg DAILY IV Last administered on 05/13/18at 09:32; Start 05/12/18 at 09:00; Stop 05/13/18 at 15:32; Status DC Enoxaparin Sodium (Lovenox 120mg Syringe) 120 mg BID SQ ; Start 05/12/18 at 21: 00; Status Cancel Ceftriaxone Sodium 1 gm/ Sodium Chloride 50 ml @ 100 mls/hr QHS IV ; Start at 21:00; Status Cancel Azithromycin (Zithromax) 250 mg DAILY PO Last administered on 05/12/18at 11:18; Start 05/12/18 at 09:00; Stop 05/12/18 at 17:19; Status DC Info (Anti-Coagulation Monitoring By Pharmacy) 1 each PRN DAILY PRN MC SEE COMMENTS; Start 05/12/18 at 04:45; Status Cancel Lactobacillus Rhamnosus (Culturelle) 1 cap BID PO Last administered on at 09:05; Start 05/12/18 at 09:00; Stop 05/15/18 at 10:55; Status DC Furosemide (Lasix) 40 mg 1X ONCE IVP Last administered on 05/12/18at 11:18; Start 05/12/18 at 11:00; Stop 05/12/18 at 11:08; Status DC Potassium Chloride (Klor-Con) 20 meq 1X ONCE PO Last administered on at 11:18; Start 05/12/18 at 11:00; Stop 05/12/18 at 11:08; Status DC Ceftriaxone Sodium 1 gm/ Sodium Chloride 50 ml @ 100 mls/hr Q24H IV Last administered on 05/14/18at 20:35; Start 05/12/18 at 21:00; Stop 05/15/18 at 10:55 ; Status DC Apixaban (Eliquis) 5 mg BID PO Last administered on 05/15/18at 09:04; Start at 21:00; Stop 05/15/18 at 10:55; Status DC Azithromycin (Zithromax) 250 mg DAILY PO Last administered on 05/15/18at 09:04; Start 05/13/18 at 09:00; Stop 05/15/18 at 10:55; Status DC Benzonatate (Tessalon Perle) 100 mg [id number] PO Last administered on 05/15/18at 09 :05; Start 05/12/18 at 17:15; Stop 05/15/18 at 10:55; Status DC Methylprednisolone Sodium Succinate (SOLU-Medrol 40MG VIAL) 40 mg Q8H IV Last administered on 05/15/18at 00:35; Start 05/13/18 at 17:00; Stop 05/15/18 at 08:54 ; Status DC Guaifenesin (Mucinex Er) 600 mg BID PO Last administered on 05/15/18at 09:05; Start 05/13/18 at 21:00; Stop 05/15/18 at 10:55; Status DC Montelukast Sodium (Singulair) 10 mg QHS PO Last administered on 05/14/18at 20: 35; Start 05/13/18 at 21:00; Stop 05/15/18 at 10:55; Status DC Budesonide (Pulmicort) 0.5 mg RTBID NEB Last administered on 05/15/18at 09:25; Start 05/13/18 at 20:00; Stop 05/15/18 at 10:55; Status DC Albuterol Sulfate (Ventolin) 2.5 mg PRN Q2HR PRN NEB SHORTNESS OF BREATH; Start 05/13/18 at 15:45; Stop 05/15/18 at 10:55; Status DC Polyethylene Glycol (miraLAX) 17 gm DAILY PO Last administered on 05/15/18at 09: 04; Start 05/14/18 at 09:00; Stop 05/15/18 at 10:55; Status DC Metoprolol Tartrate (Lopressor) 25 mg Q6HRS PO Last administered on 05/15/18at 05:53; Start 05/14/18 at 18:00; Stop 05/15/18 at 10:55; Status DC Prednisone (Prednisone) 40 mg DAILY PO Last administered on 05/15/18at 09:05; Start 05/15/18 at 09:00; Stop 05/15/18 at 10:55; Status DC Active Scripts Active Proair Hfa Inhaler (Albuterol Sulfate) 8.5 Gm Hfa.aer.ad 1 Puff INH PRN Q6HRS PRN 5 Days Prednisone 20 Mg Tablet 2 Tab PO DAILY 5 Days Lisinopril 10 Mg Tablet 1 Tab PO DAILY Lasix (Furosemide) 40 Mg Tablet 1 Tab PO DAILY Ciprofloxacin Hcl 500 Mg Tablet 1 Tab PO BID 4 Days Prednisone 10 Mg Tablet 10 Mg PO DAILY 16 Days COPD exacerbation TAPER: 40 mg x 4 days, then 30 mg x 4 days, then 20 mg x 4 days, then 10 mg x 4 days, then STOP Metoprolol Tartrate 50 Mg Tablet 1 Tab PO BID 30 Days Mucinex (Guaifenesin) 600 Mg Tablet.er 600 Mg PO BID 14 Days Eliquis (Apixaban) 5 Mg Tablet 5 Mg PO BID 30 Days AMY BAZZI MD May 26, 2018 16:52
== END 2018-05-15 10:54 | disposition home or self-care (01) | DRG 871 ==
LOC: ER 02:52 → ICU 03:30 → ER 06:15
PROVIDERS: ADMIT Internal Medicine; ATTEND Internal Medicine
DX: A41.9 Sepsis, unspecified organism (principal); I50.31 Acute diastolic (congestive) heart failure; J18.9 Pneumonia, unspecified organism; J96.01 Acute respiratory failure with hypoxia; J44.1 Chronic obstructive pulmonary disease with (acute) exacerbation; J44.0 Chronic obstructive pulmonary disease with (acute) lower respiratory infection; I11.0 Hypertensive heart disease with heart failure; I48.91 Unspecified atrial fibrillation; F17.210 Nicotine dependence, cigarettes, uncomplicated; N40.0 Benign prostatic hyperplasia without lower urinary tract symptoms; I35.9 Nonrheumatic aortic valve disorder, unspecified; Z95.3 Presence of xenogenic heart valve; Z79.82 Long term (current) use of aspirin; Z85.46 Personal history of malignant neoplasm of prostate; Z92.21 Personal history of antineoplastic chemotherapy; Z92.3 Personal history of irradiation; Z95.0 Presence of cardiac pacemaker; Z71.6 Tobacco abuse counseling; Z79.01 Long term (current) use of anticoagulants; Z79.899 Other long term (current) drug therapy
CPT/HCPCS: 36415; 36600; 71045; 80048; 80053; 80076; 80307; 81001; 82550; 82803; 83605; 83690; 83735; 83880; 84443; 84484; 85025; 85027; 85379; 85610; 85730; 87040; 87070; 87077; 87205; 87641; 87804; 87880; 93005; 93306; 94640; 96365; 96366; 96372; 96375; G0238; J0456; J0696; J1650; J1940; J2920; J2930; J3490; J7120; J7512; J7620; J7626; 99285-25

== ENCOUNTER 2018-05-16 03:30 | Emergency (ER) | payer SELFPAY ==
[~2018-05-16] VITALS: Ht 182.9 cm; Wt 122.9 kg
[~2018-05-16 03:30] MED LIST: APIX5TAB3 PO; CIPR500T PO; GUAI600T47 PO; METO50TA6 PO; PRED-220 PO
--- NOTE | 2018-05-16 04:10 | ED.ADGEN ---
Past History Past Medical History: A-Fib, Alcoholism, Bronchitis, COPD, Other Past Surgical History: Other Smoking: Cigarettes Alcohol Use: None Drug Use: None Adult General Chief Complaint Chief Complaint Shortness of breath HPI HPI 72 years old gentleman who was recently discharged from hospital after he was admitted and treated for rapid A. fib and COPD exacerbation woke up from sleep complaining of shortness of breath and wheezing. No chest pain no fever no chills no abdominal pain no urgency frequency hematuria Review of Systems Review of Systems Constitutional: Denies fever or chills [] Eyes: Denies change in visual acuity, redness, or eye pain [] HENT: Denies nasal congestion or sore throat [] Respiratory: Denies cough Cardiovascular: No additional information not addressed in HPI [] GI: Denies abdominal pain, nausea, vomiting, bloody stools or diarrhea [] : Denies dysuria or hematuria [] Current Medications Current Medications Current Medications Medications (Trade) Dose Ordered Sig/Nicolas Start Time Stop Time Status Last Admin Dose Admin Albuterol Sulfate (Ventolin) 2.5 mg 1X ONCE 05/16/18 04:30 05/16/18 04:31 DC 05/16/18 04:08 2.5 MG Dexamethasone Sodium Phosphate (Decadron) 4 mg 1X ONCE 05/16/18 04:30 05/16/18 04:31 DC 05/16/18 04:07 4 MG Furosemide (Lasix) 40 mg 1X ONCE 05/16/18 05:30 05/16/18 05:31 Allergies Allergies Allergies Coded Allergies Type Severity Reaction Last Updated Verified No Known Drug Allergies 05/12/18 No Physical Exam Physical Exam Constitutional: Well developed, well nourished, no acute distress, non-toxic appearance. [] HENT: Normocephalic, atraumatic, bilateral external ears normal, oropharynx moist, no oral exudates, nose normal. [] Eyes: PERRLA, EOMI, conjunctiva normal, no discharge. [] Neck: Normal range of motion, no tenderness, supple, no stridor. [] Cardiovascular:Heart rate regular rhythm, no murmur [] Lungs & Thorax: Diminished breath sounds bilaterally with expiratory wheezing Abdomen: Bowel sounds normal, soft, no tenderness, no masses, no pulsatile masses. [] Skin: Warm, dry, no erythema, no rash. [] Back: No tenderness, no CVA tenderness. [] Extremities: No tenderness, no cyanosis, no clubbing, ROM intact, no edema. [] Neurologic: Alert and oriented X 3, normal motor function, normal sensory function, no focal deficits noted. [] Psychologic: Affect normal, judgement normal, mood normal. [] Current Patient Data Vital Signs Vital Signs Date Time Temp Pulse Resp B/P (MAP) Pulse Ox O2 Delivery O2 Flow Rate FiO2 05/16/18 03:30 97.7 92 20 95 Room Air Lab Results Laboratory Tests Test 05/16/18 04:25 White Blood Count 11.8 x10^3/uL (4.0-11.0) #H Red Blood Count 4.91 x10^6/uL (4.30-5.70) Hemoglobin 15.3 g/dL (13.0-17.5) Hematocrit 45.2 % (39.0-53.0) Mean Corpuscular Volume 92 fL (79-100) Mean Corpuscular Hemoglobin 31 pg (25-35) Mean Corpuscular Hemoglobin Concent 34 g/dL (31-37) Red Cell Distribution Width 13.2 % (11.5-14.5) Platelet Count 266 x10^3/uL (140-400) Neutrophils (%) (Auto) 82 % (31-73) H Lymphocytes (%) (Auto) 8 % (24-48) L Monocytes (%) (Auto) 10 % (0-9) H Eosinophils (%) (Auto) 0 % (0-3) Basophils (%) (Auto) 1 % (0-3) Neutrophils # (Auto) 9.7 x10^3uL (1.8-7.7) H Lymphocytes # (Auto) 0.9 x10^3/uL (1.0-4.8) L Monocytes # (Auto) 1.1 x10^3/uL (0.0-1.1) Eosinophils # (Auto) 0.0 x10^3/uL (0.0-0.7) Basophils # (Auto) 0.1 x10^3/uL (0.0-0.2) Sodium Level 138 mmol/L (136-145) Potassium Level 3.9 mmol/L (3.5-5.1) Chloride Level 100 mmol/L (98-107) Carbon Dioxide Level 30 mmol/L (21-32) Anion Gap 8 (6-14) Blood Urea Nitrogen 16 mg/dL (8-26) Creatinine 0.8 mg/dL (0.7-1.3) Estimated GFR (Cockcroft-Gault) 94.5 Glucose Level 107 mg/dL (70-99) H Calcium Level 8.9 mg/dL (8.5-10.1) Troponin I Quantitative < 0.017 ng/mL (0-0.055) QY-Prh-P-Type Natriuretic Peptide 1850 pg/mL (0-124) H EKG EKG [] Radiology/Procedures Radiology/Procedures [] Course & Med Decision Making Course & Med Decision Making Pertinent Labs and Imaging studies reviewed. (See chart for details) [] Final Impression Final Impression [] Problems: (1) COPD (chronic obstructive pulmonary disease) Qualifiers: Qualified Codes: J44.9 - Chronic obstructive pulmonary disease, unspecified (2) CHF (congestive heart failure) Qualifiers: Qualified Codes: I50.9 - Heart failure, unspecified Dragon Disclaimer Dragon Disclaimer This electronic medical record was generated, in whole or in part, using a voice recognition dictation system. KATHYA PORTILLO MD May 16, 2018 04:10
[2018-05-16] MEDS ORDERED: ALBUTEROL SULFATE 2.5 MG/3 ML NEBU. NEB ONE (04:30)
[2018-05-16] MEDS ORDERED: DEXAMETHASONE SOD PHOS 4 MG/ML VIAL NEB ONE (04:30)
[2018-05-16] MEDS ORDERED: DEXAMETHASONE SOD PHOS 4 MG/ML VIAL TP ONE (04:30)
[2018-05-16 04:38] LABS: BASO # 0.1 x10^3/uL (0.0-0.2); BASO % 1 % (0-3); EOS % 0 % (0-3); HEMATOCRIT 45.2 % (39.0-53.0); HEMOGLOBIN 15.3 g/dL (13.0-17.5); LYMPH # 0.9 x10^3/uL (1.0-4.8); LYMPH % 8 % (24-48); MEAN CORPUSCULAR HEMOGLOBIN 31 pg (25-35); MEAN CORPUSCULAR HGB CONC 34 g/dL (31-37); MEAN CORPUSCULAR VOLUME 92 fL (79-100); MONO # 1.1 x10^3/uL (0.0-1.1); MONO % 10 % (0-9); NEUT # 9.7 x10^3uL (1.8-7.7); NEUT % 82 % (31-73); PLATELET COUNT 266 x10^3/uL (140-400); RED BLOOD COUNT 4.91 x10^6/uL (4.30-5.70); RED CELL DISTRIBUTION WIDTH 13.2 % (11.5-14.5); WHITE BLOOD COUNT 11.8 x10^3/uL (4.0-11.0)
[2018-05-16 04:45] LABS: CALCIUM 8.9 mg/dL (8.5-10.1); CREATININE 0.8 mg/dL (0.7-1.3); GFR 94.5; POTASSIUM 3.9 mmol/L (3.5-5.1)
[2018-05-16] MEDS ORDERED: FURO-68 PO (05:20)
[2018-05-16] MEDS ORDERED: LISI10TA2 PO (05:20)
[2018-05-16] MEDS ORDERED: FUROSEMIDE 40 MG TABLET PO ONE (05:30)
[2018-05-16] MEDS ORDERED: ALBU2.5V8 INH (05:37)
[2018-05-16] MEDS ORDERED: PRED20TA PO (05:37)
[2018-05-16] MEDS ORDERED: predniSONE 20 MG TABLET PO ONE (06:00)
[2018-05-16] MEDS ORDERED: ALBUTEROL SULFATE 2.5 MG/3 ML NEBU. CONT NEB ONE (06:00)
[2018-05-16 07:10] VITALS: BP 150/74
--- NOTE | 2018-05-16 09:17 | RAD ---
EXAM: AP View of the chest DATE: 05/16/2018 3:59 AM INDICATION: DYSPNEA COMPARISON: 05/13/2018, 05/12/2018 FINDINGS: Mild cardiomegaly. Cardiac generator pack obscures a portion of the left chest with leads in stable position. Mediastinal and hilar contours are stable. However there is mild hilar prominence bilaterally. In addition there is an approximately 1.7 cm nodular opacity in the left upper lung. No definite pleural effusions. Mild bibasilar interstitial prominence. No lobar consolidation. No pneumothorax. IMPRESSION: 1. Mild cardiomegaly and interstitial prominence is nonspecific but may be seen with interstitial edema. 2. Nodular opacity in the left upper lung with hilar prominence. This should be further assessed with CT to exclude lung mass. Electronically signed by: Julián Packer MD (05/16/2018 9:14 AM) [id number]
--- NOTE | 2018-05-17 00:39 | EKG ---
[address] [address] Test Date: 2018-05-16 Test Time: 04:00:58 Pat Name: HASEEB DYER Department: Room: Gender: M [employer] Person: MEL : 1945 Requested By: KATHYA PORTILLO Order Number: [id number] Reading MD: Endy Mcdaniels MD Measurements Intervals [place] Rate: 92 P: MO: QRS: 73 QRSD: 134 T: 19 QT: 384 QTc: 480 Interpretive Statements ATRIAL FIBRILLATION WITH CONTROLLED VENTRICULAR RESPONSE RBBB Electronically Signed On 05-20-2018 13:10:10 CDT by Endy Mcdaniels MD
== END 2018-05-16 07:10 | disposition home or self-care (01) ==
LOC: ER 03:30
DX: J44.9 Chronic obstructive pulmonary disease, unspecified (principal); I50.9 Heart failure, unspecified; I48.91 Unspecified atrial fibrillation; F10.20 Alcohol dependence, uncomplicated; F17.210 Nicotine dependence, cigarettes, uncomplicated; Y90.9 Presence of alcohol in blood, level not specified
CPT/HCPCS: 36415; 71045; 80048; 83880; 84484; 85025; 93005; 94644; 99285; J1100; J7512; J7613; 94640

== ENCOUNTER 2019-06-10 20:59 | Inpatient (IN) | payer MEDICARE ==
[~2019-06-10] VITALS: Ht 182.9 cm; Wt 128.7 kg
[~2019-06-10 20:59] MED LIST changes: +ALBU2.5V8 INH; +FURO-68 PO; +LISI10TA2 PO; +PRED20TA PO
--- NOTE | 2019-06-10 21:09 | PHYS DOC ---
Past History Past Medical History: A-Fib, Alcoholism, Angina, Arthritis, Bronchitis, Cancer, COPD, Hypertension, Other Past Surgical History: Cancer Surgery, Pacemaker, Other Past Surgical History Aortic valve replacement, prostate cancer, Smoking: Cigarettes Alcohol Use: None Drug Use: None General Adult EDM: Chief Complaint: MECHANICAL FALL HPI: HPI: ""....I was making a tobacco run... for my cigarettes... Yes COPD... And I still smoke... But I have been increased weakness and... I got bad arthritis... But I went down and I could not get myself.... I have been drinking too much.... This right hip hurts so bad when I stand on.... I am also having some chest pain that is sharp and stabbing..... I am on a blood thinner for my A. fib and aortic valve that is been replaced... I think it is Xarelto... And take that metoprolol to control my heart rate... I think you are the one that see me approximately a year ago... When really bad off a got CHF A. fib with rapid ventricular response .... Could not breathe.... I will check [facility] ,... finishing up my 10-year sentence... Patient is a 73 year old male who presents with above hx and complaints of generalized weakness with fall. Patient current fall, complaints of right hip pain. Patient was unable to get up after the fall because of weakness. Patient does admit to heavy alcohol use tonight. Pt. complaints of some sharp sternal pain on Lt.. Some reproduction with palpation and deep breaths. Last seen this patient approximately a year ago on 05/12/2018 for A. fib with rapid ventricular response, atypical pneumonia, COPD exacerbation and respiratory failure. At that time patient was a [employer] inmate finishing a 10-year [employer] residential sentence. Patient has significant medical history with an [id number] smoking history, COPD, chronic bronchitis,, hypertension, A. 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 Patient states he is taking metoprolol and Xarelto for his A. fib . The patient denies any recent travel outside of the [facility]. Patient denies any specific ill contacts. Review of Systems: Review of Systems: Constitutional: Denies fever or chills Eyes: Denies change in visual acuity HENT: Denies nasal congestion or sore throat Respiratory: Complaints of cough and shortness of breath Cardiovascular: Complaints of chest pain or edema GI: Denies abdominal pain, nausea, vomiting, bloody stools or diarrhea : Denies dysuria Musculoskeletal: Complaints of Rt. hip pain. Complaints of generalized weakness. Integument: Denies rash Neurologic: Denies headache, focal weakness or sensory changes Endocrine: Denies polyuria or polydipsia Lymphatic: Denies swollen glands Psychiatric: Denies depression or anxiety Heart Score: HEART Score for Chest Pain: HEART Score for Chest Pain Response (Comments) Value History Moderately Suspicious 1 Age > 65 2 Risk Factors >3 Risk Factors or Hx CAD 2 Total 5 Risk Factors: Risk Factors: DM, Current or recent (<one month) smoker, HTN, HLP, family history of CAD, obesity. Risk Scores: Score 0 - 3: 2.5% MACE over next 6 weeks - Discharge Home Score 4 - 6: 20.3% MACE over next 6 weeks - Admit for Clinical Observation Score 7 - 10: 72.7% MACE over next 6 weeks - Early Invasive Strategies Family History: Family History: Patient is adopted and does not know his biological parents Current Medications: Current Meds: See nursing for home meds Allergies: Allergies: Allergies Coded Allergies Type Severity Reaction Last Updated Verified No Known Drug Allergies 05/12/18 No Physical Exam: PE: Constitutional: Moderate acute distress, intoxicated in appearance. [] HENT: Normocephalic, atraumatic, bilateral external ears normal, oropharynx m oist, no oral exudates, nose normal. [] Eyes: PERRLA, EOMI, conjunctiva normal, no discharge. [] Neck: Normal range of motion, no tenderness, supple, no stridor. [] Cardiovascular: Irregular rate and rhythm with a rapid ventricular tachycardia, PMI to the left. Mild flow murmur in aortic area Lungs & Thorax: Bilateral breath sounds equal at apex on auscultation with scattered wheezes throughout auscultation [] old scar. Pacer. On left. Basilar crackles. Abdomen: Bowel sounds normal, soft, no tenderness, no masses, no pulsatile masses. [Morbid obesity. Skin: Warm, dry, no erythema, no rash. [] Back: No tenderness, no CVA tenderness. [] Extremities: Right hip tenderness, no cyanosis, no clubbing, ROM intact, laly ateral ankle edema. [] Neurologic: Alert and oriented X 3, n moves extremities on request, has distal sensory,, no focal deficits noted. [] Psychologic: Affect anxious, judgement normal, mood normal. [] EKG: EKG: My interpretation EKG shows a irregular rate and rhythm with a ventricular response of 113 bpm. There is a right bundle branch block. Contour abnormality anterior septal leads. Overall morphology of EKG consistent with A. fib. [] Radiology/Procedures: Radiology/Procedures: My interpretation of chest x-ray shows cardiomegaly. Sternal wires. Pacer. There is interstitial cephalization consistent with edema. There is some hilar prominence. My interpretation of pelvis and hip films shows no obvious displaced fracture. But severe degenerative joint changes in bilateral hips. See formal report when available. [] Course & Med Decision Making: Course & Med Decision Making Pertinent Labs and Imaging studies reviewed. (See chart for details) Patient admitted to Dr. Iraheta for further tx and evaluation. With Cardiology Consult Impression; 1. Weakness 2. Fall 3. A. fib with rapid ventricular response 4. Alcohol intoxication 135 5. CHF-diastolic dysfunction BNP 1,759 6. Hx COPD 7. Hx. porcelain aortic valve 8. Chest Pain- chest wall and atypical 9. DJD - Arthritis 10.Tob.Abuse [Note there are duplications of chart, omissions.. because of power failure.] Repeat dictations and order placements. Required force log out in order to proceed with other charts and pt. s MIS: [id number] may be able to reconstruct the chart. Ricardo Disclaimer: Ricardo Disclaimer: This electronic medical record was generated, in whole or in part, using a voice recognition dictation system. Departure Departure: Disposition: HOME/RESIDENCE PRIOR TO ADM Condition: STABLE Referrals: PCP,NO (PCP) Ricardo Disclaimer This chart was dictated in whole or in part using Voice Recognition software in a busy, high-work load, and often noisy Emergency Department environment. It may contain unintended and wholly unrecognized errors or omissions. HASEEB EUCEDA MD Jun 10, 2019 21:09
[2019-06-10 21:35] LABS: BASO % 0 % (0-3); EOS # 0.4 x10^3/uL (0.0-0.7); EOS % 4 % (0-3); HEMATOCRIT 42.2 % (39.0-53.0); HEMOGLOBIN 14.1 g/dL (13.0-17.5); LYMPH # 1.7 x10^3/uL (1.0-4.8); LYMPH % 17 % (24-48); MEAN CORPUSCULAR HEMOGLOBIN 32 pg (25-35); MEAN CORPUSCULAR HGB CONC 33 g/dL (31-37); MEAN CORPUSCULAR VOLUME 95 fL (79-100); MONO # 0.7 x10^3/uL (0.0-1.1); MONO % 7 % (0-9); NEUT # 6.9 x10^3uL (1.8-7.7); NEUT % 71 % (31-73); PLATELET COUNT 302 x10^3/uL (140-400); RED BLOOD COUNT 4.47 x10^6/uL (4.30-5.70); RED CELL DISTRIBUTION WIDTH 14.1 % (11.5-14.5); WHITE BLOOD COUNT 9.7 x10^3/uL (4.0-11.0)
[2019-06-10 21:40] LABS: CALCIUM 8.6 mg/dL (8.5-10.1); CREATININE 0.9 mg/dL (0.7-1.3); GFR 82.3; POTASSIUM 3.8 mmol/L (3.5-5.1)
[2019-06-10 21:52] LABS: ALBUMIN 3.4 g/dL (3.4-5.0); DIRECT BILIRUBIN 0.2 mg/dL (0.0-0.2); MAGNESIUM 1.8 mg/dL (1.8-2.4); TOTAL BILIRUBIN 0.5 mg/dL (0.2-1.0); TOTAL PROTEIN 6.9 g/dL (6.4-8.2)
[2019-06-10 22:00] LABS: % BANDS 5 % (0-9); % EOS 6 % (0-5); % LYMPHS 21 % (24-48); % MONOS 8 % (0-10); % SEGS 60 % (35-66)
[2019-06-10] MEDS ORDERED: IV RINGERS SOLUTION,LACTATED 1,000 ML IV SCH (22:00)
[2019-06-10 22:02] LABS: PLT ESTIMATE ADEQUATE (ADEQUATE)
--- NOTE | 2019-06-10 22:26 | RAD ---
Exam: Chest one view INDICATION: Fall TECHNIQUE: Frontal view of the chest Comparisons: 05/16/2018 FINDINGS: Sternotomy wires and pacer with leads terminating the right atrium are noted. Heart is enlarged. Pulmonary vessels are within normal limits. The lung and pleural spaces are clear. IMPRESSION: Cardiomegaly without acute pulmonary process. Electronically signed by: Presley Small MD (06/10/2019 10:23 PM) [id number]
--- NOTE | 2019-06-10 22:33 | RAD ---
Exam: Pelvis with right hip 2 views INDICATION: Fall, hip pain TECHNIQUE: Frontal view of the pelvis with frontal and frog-leg lateral views of the right hip Comparisons: None FINDINGS: Bone mineralization is normal. No acute or healed fractures. There is severe degenerative change at the hip joints bilaterally greater on the right. Soft tissues are unremarkable. IMPRESSION: No acute osseous abnormality. If patient is acutely unable to bear weight MRI to exclude occult hip fracture is recommended. Electronically signed by: Presley Small MD (06/10/2019 10:30 PM) [id number]
[2019-06-10 23:01] LABS: INFLUENZA A PATIENT NEGATIVE (NEGATIVE); INFLUENZA B PATIENT NEGATIVE (NEGATIVE)
[2019-06-10 23:22] LABS: BARBITURATES NEG (NEG); BENZODIAZEPINES NEG (NEG); CANNABINOIDS NEG (NEG); COCAINE NEG (NEG); METHADONE NEG (NEG); OPIATES NEG (NEG); PHENCYCLIDINE NEG (NEG)
[2019-06-10 23:23] LABS: AMPHETAMINE/METHAMPHETAMINE NEG (NEG)
[2019-06-10 23:27] LABS: BACTERIA,URINE FEW /HPF (0-FEW); BILIRUBIN,URINE NEG (NEG); CLARITY,URINE CLEAR; COLOR,URINE YELLOW; GLUCOSE,URINE NEG (NEG); NITRITE,URINE NEG (NEG); RBC,URINE 0 /HPF (0-2); SQUAMOUS EPITHELIAL CELL,UR OCC /LPF; UROBILINOGEN,URINE 0.2 mg/dL (0.2 mg/dL); WBC,URINE OCC /HPF (0-4)
[2019-06-10 23:28] LABS: HYALINE CASTS, URINE MOD /HPF
[2019-06-11] MEDS ORDERED: FUROSEMIDE 40 MG/4 ML VIAL IVP ONE
[2019-06-11] MEDS ORDERED: ACETAMINOPHEN 325 MG TABLET PO PRN (00:15)
[2019-06-11] MEDS ORDERED: ONDANSETRON PF 4 MG/2 ML VIAL. IVP PRN (00:15)
--- NOTE | 2019-06-11 00:20 | EKG ---
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
[2019-06-11] MEDS ORDERED: IPRATRPIUM/ALBUTEROL 0.5/2.5MG 3 ML NEBU. ONE (00:48)
[2019-06-11 02:21] VITALS: BP 153/81
[2019-06-11 05:49] VITALS: BP 108/70
[2019-06-11] MEDS ORDERED: IPRATRPIUM/ALBUTEROL 0.5/2.5MG 3 ML NEBU. NEB SCH (08:00)
[2019-06-11] MEDS ORDERED: RIVAROXABAN 15 MG TABLET. PO SCH (08:00)
[2019-06-11] MEDS: PRENATAL MULTIVITAMIN TABLET. PO SCH (09:00)
--- NOTE | 2019-06-11 10:22 | PDOC2 ---
CARDIAC CONSULT DATE OF CONSULT Date Of Consult DATE: 06/11/19 TIME: 10:15 REASON FOR CONSULT Reason for Consult Atrial fibrillation, AVR REFERRING PHYSICIAN Referring Physician Dr. Iraheta SOURCE Source: Chart review, Patient HPI History of Present Illness The patient is a 73-year-old male who was admitted through the emergency room yesterday for episodes of weakness and a fall which resulting hip pain. Patient had been drinking earlier in the evening and had a significantly elevated EtOH level of 135. Troponin was normal at less than 0.017 but his BNP was elevated at 1759. Patient has an extensive medical history including an aortic valve replacement, pacemaker, atrial fibrillation and hypertension. He has been treated in the past with metoprolol and anticoagulation for his atrial fibrillation. He also has severe COPD but continues to smoke cigarettes. An echocardiogram done on 05/13/2018 showed an ejection fraction of greater than 55%. The aortic valve was not well imaged but appeared to be prostatic valve. The study showed normal prosthetic valve gradients. Patient also has a history of a permanent pacemaker. PAST MEDICAL HISTORY Cardiovascular: AFIB, CHF, HTN, aortic stenosis Pulmonary: COPD, Pneumonia Heme/Onc: Cancer Psych: Addictions PAST SURGICAL HISTORY Past Surgical History: Pacemaker, Other (aVR, surgery for prostate cancer.) FAMILY HISTORY Family History: Hypertension SOCIAL HISTORY Smoke: 1 pack per day ALCOHOL: heavy CURRENT MEDICATIONS Current Medications Current Medications Lactated Ringer's 1,000 ml @ 100 mls/hr Q10H IV Last administered on 06/10/19at 22:00; Start 06/10/19 at 22:00; Stop 06/11/19 at 07:59; Status DC Furosemide (Lasix) 40 mg 1X ONCE IVP Last administered on 06/11/19at 02:42; Start 06/11/19 at 00:00; Stop 06/11/19 at 00:01; Status DC Ondansetron HCl (Zofran) 4 mg PRN Q4HRS PRN IVP NAUSEA/VOMITING; Start 06/11/19 at 00:15; Stop 06/12/19 at 00:14 Acetaminophen (Tylenol) 650 mg PRN Q4HRS PRN PO FEVER Last administered on 06/11/19at 05:47; Start 06/11/19 at 00:15; Stop 06/12/19 at 00:14 Albuterol/ Ipratropium (Duoneb) 3 ml RTQID NEB Last administered on 06/11/19at 03:51; Start 06/11/19 at 08:00; Stop 06/11/19 at 09:26; Status DC Multivit/ Folic Acid/Iron (Multivitamin ) 1 tab DAILY PO ; Start 06/11/19 at 09:00 Lorazepam (Ativan Inj) 2 mg 1X PRN PRN IVP seizure; Start 06/11/19 at 00:15 Rivaroxaban (Xarelto) 15 mg BIDWMEALS PO ; Start 06/11/19 at 08:00; Status UNV Rivaroxaban (Xarelto) 20 mg DAILYWSUP PO ; Start 06/11/19 at 17:00 Albuterol/ Ipratropium (Duoneb) 3 ml STK-MED ONCE .ROUTE ; Start 06/11/19 at 00:48; Stop 06/11/19 at 00:48; Status DC Albuterol/ Ipratropium (Duoneb) 3 ml PRN QID PRN NEB SHORTNESS OF BREATH; Start 06/11/19 at 12:00 Active Scripts Active Proair Hfa Inhaler (Albuterol Sulfate) 8.5 Gm Hfa.aer.ad 1 Puff INH PRN Q6HRS PRN 5 Days Lisinopril 10 Mg Tablet 1 Tab PO DAILY Lasix (Furosemide) 40 Mg Tablet 1 Tab PO DAILY Metoprolol Tartrate 50 Mg Tablet 1 Tab PO BID 30 Days Eliquis (Apixaban) 5 Mg Tablet 5 Mg PO BID 30 Days ALLERGIES Allergies: Coded Allergies: No Known Drug Allergies (Unverified , 05/12/18) ROS General: YES: Fatigue Respiratory: YES: SOB with excertion PHYSICAL EXAM General: mild distress Lungs: Other (Mildly decreased breath sounds) Heart: Other (Irregularly irregular with a 1/6 systolic murmur) Abdomen: Normal bowel sounds VITALS Vital Signs Vital Signs Date Time Temp Pulse Resp B/P (MAP) Pulse Ox O2 Delivery O2 Flow Rate FiO2 06/11/19 05:49 98.1 119 20 108/70 (83) 93 Room Air LABS LABS Laboratory Tests Test 06/10/19 21:10 06/10/19 21:56 06/10/19 22:26 06/10/19 23:00 White Blood Count 9.7 x10^3/uL (4.0-11.0) Red Blood Count 4.47 x10^6/uL (4.30-5.70) Hemoglobin 14.1 g/dL (13.0-17.5) Hematocrit 42.2 % (39.0-53.0) Mean Corpuscular Volume 95 fL (79-100) Mean Corpuscular Hemoglobin 32 pg (25-35) Mean Corpuscular Hemoglobin Concent 33 g/dL (31-37) Red Cell Distribution Width 14.1 % (11.5-14.5) Platelet Count 302 x10^3/uL (140-400) Neutrophils (%) (Auto) 71 % (31-73) Lymphocytes (%) (Auto) 17 % (24-48) Monocytes (%) (Auto) 7 % (0-9) Eosinophils (%) (Auto) 4 % (0-3) Basophils (%) (Auto) 0 % (0-3) Neutrophils # (Auto) 6.9 x10^3uL (1.8-7.7) Lymphocytes # (Auto) 1.7 x10^3/uL (1.0-4.8) Monocytes # (Auto) 0.7 x10^3/uL (0.0-1.1) Eosinophils # (Auto) 0.4 x10^3/uL (0.0-0.7) Basophils # (Auto) 0.0 x10^3/uL (0.0-0.2) Segmented Neutrophils % 60 % (35-66) Band Neutrophils % 5 % (0-9) Lymphocytes % 21 % (24-48) Monocytes % 8 % (0-10) Eosinophils % 6 % (0-5) Platelet Estimate Adequate (ADEQUATE) Sodium Level 138 mmol/L (136-145) Potassium Level 3.8 mmol/L (3.5-5.1) Chloride Level 100 mmol/L (98-107) Carbon Dioxide Level 22 mmol/L (21-32) Anion Gap 16 (6-14) Blood Urea Nitrogen 10 mg/dL (8-26) Creatinine 0.9 mg/dL (0.7-1.3) Estimated GFR (Cockcroft-Gault) 82.3 Glucose Level 119 mg/dL (70-99) Calcium Level 8.6 mg/dL (8.5-10.1) Magnesium Level 1.8 mg/dL (1.8-2.4) Total Bilirubin 0.5 mg/dL (0.2-1.0) Direct Bilirubin 0.2 mg/dL (0.0-0.2) Aspartate Amino Transf (AST/SGOT) 25 U/L (15-37) Alanine Aminotransferase (ALT/SGPT) 31 U/L (16-63) Alkaline Phosphatase 124 U/L (46-116) Creatine Kinase 112 U/L (39-308) Troponin I Quantitative < 0.017 ng/mL (0-0.055) NL-Shd-R-Type Natriuretic Peptide 1759 pg/mL (0-449) Total Protein 6.9 g/dL (6.4-8.2) Albumin 3.4 g/dL (3.4-5.0) Lipase 124 U/L (73-393) Ethyl Alcohol Level 134 mg/dL (0-10) Influenza Type A (Rapid) Negative (NEGATIVE) Influenza Type B (Rapid) Negative (NEGATIVE) Group A Streptococcus Rapid Negative (NEGATIVE) Prothrombin Time 10.7 SEC (9.4-11.4) Prothromb Time International Ratio 1.0 (0.9-1.1) Activated Partial Thromboplast Time 28 SEC (23-33) D-Dimer (Marla) 0.41 mg/L (0.00-0.50) Urine Collection Type Unknown Urine Color Yellow Urine Clarity Clear Urine pH 5.5 Urine Specific [place]ley <=1.005 Urine Protein Neg (NEG-TRACE) Urine Glucose (UA) Neg mg/dL (NEG) Urine Ketones (Stick) Neg mg/dL (NEG) Urine Blood Neg (NEG) Urine Nitrite Neg (NEG) Urine Bilirubin Neg (NEG) Urine Urobilinogen Dipstick 0.2 mg/dL (0.2 mg/dL) Urine Leukocyte Esterase Neg (NEG) Urine RBC 0 /HPF (0-2) Urine WBC Occ /HPF (0-4) Urine Squamous Epithelial Cells Occ /LPF Urine Bacteria Few /HPF (0-FEW) Urine Hyaline Casts Mod /HPF Urine Mucus Slight /LPF Urine Opiates Screen Neg (NEG) Urine Methadone Screen Neg (NEG) Urine Barbiturates Neg (NEG) Urine Phencyclidine Screen Neg (NEG) Urine Amphetamine/Methamphetamine Neg (NEG) Urine Benzodiazepines Screen Neg (NEG) Urine Cocaine Screen Neg (NEG) Urine Cannabinoids Screen Neg (NEG) Urine Ethyl Alcohol Pos (NEG) Test 06/11/19 06:24 Ethyl Alcohol Level < 10 mg/dL (0-10) IMAGES IMAGES Chest x-ray shows cardiomegaly but no acute processes. Echocardiogram from last year as noted above. EKG EKG EKG shows atrial fibrillation at a rate of approximately [address]-T wave changes. ECHOCARDIOGRAM Echocardiogram As above. ASSESSMENT/PLAN Assessment/Plan 1. Alcohol intoxication. Level 135. Routine care. 2. Fall with hip pain. Work-up in progress. 3. History of aortic valve replacement. Patient is on anticoagulation. Echocardiogram as noted above. Will check on follow-up care. 4. Permanent pacemaker. Again will check on follow-up care. Patient was in rapid atrial fibrillation on admission. 5. Atrial fibrillation. On anticoagulation. We will continue beta-blockers for rate control. Patient is a difficult candidate for anticoagulation. 6. COPD with continued tobacco abuse. Pulmonary medications. Discontinuation of tobacco. 7. History of prostate cancer. Thank you for allowing us to participate in the care of your patient. STERLING VALLECILLO MD Jun 11, 2019 10:22
[2019-06-11] MEDS ORDERED: ALBUTEROL SULFATE 2.5 MG/3 ML NEBU. INH PRN (11:00)
[2019-06-11] MEDS: FUROSEMIDE 40 MG TABLET PO SCH (11:21)
[2019-06-11] MEDS: LISINOPRIL 10 MG TABLET PO SCH (11:21)
[2019-06-11] MEDS: METOPROLOL TART IMMED RELEASE 50 MG TABLET PO SCH ×2 (11:21→21:21)
[2019-06-11] MEDS ORDERED: ALBUTEROL SULFATE 2.5 MG/3 ML NEBU. NEB PRN (11:30)
[2019-06-11] MEDS ORDERED: IPRATRPIUM/ALBUTEROL 0.5/2.5MG 3 ML NEBU. NEB PRN (12:00)
[2019-06-11 12:05] VITALS: BP 135/86
--- NOTE | 2019-06-11 12:06 | HP ---
ADMIT DATE: 06/11/2019 HISTORY OF PRESENT ILLNESS: The patient is a 73-year-old male patient who was brought to the Emergency Room after he sustained a mechanical fall. Apparently, he has been drinking with his ben and went to buy some cigarettes and he was walking and apparently fell and could not get himself up as he was drinking too much. His pain in the right hip has worsened and gets worse whenever he stands. He also complained of chest pain that is sharp and stabbing. He apparently was seen here about on 05/12/2018 for AFib with rapid ventricular response, atypical pneumonia, COPD exacerbation, respiratory failure. At that time, the patient was at [facility] finishing a year federal intermediate sentence. He was evaluated in the Emergency Room and was extensively investigated. His CBC was unremarkable and chemistry also was unremarkable. His first set of cardiac enzymes showed troponin to be less than 0.017. Urinalysis unremarkable. Toxic screen was positive for blood alcohol level of 134 mg/dL. However, his influenza A and B as well as group A streptococcus rapid testing was negative. Has had a chest x-ray, which showed that his sternotomy wires and pacers with leads terminating in the high atrium are noted. The heart is enlarged. Pulmonary vessels are within normal limits. The lungs and pleural spaces are clear. He did have x-ray of the pelvis and right hip joint, which basically showed that the bone mineralization is normal, no acute or healed fracture. There are severe degenerative changes at the hip joints bilaterally, greater on the right. Soft tissues unremarkable. The radiologist impression that there is no acute osseous abnormality. The patient acutely unable to bear weight. MRI to exclude occult hip fracture is recommended. The patient was admitted with atrial fibrillation, RVR, weakness, mechanical fall and alcohol intoxication and chest pain. We will do 2 more sets of cardiac enzymes, check his fasting lipid profile, consult the exhauster engineer and decide on further management accordingly. PAST MEDICAL HISTORY: Significant for hypertension, atrial fibrillation, aortic valve disease, prostate cancer status post radiotherapy and benign prostatic hypertrophy, is also known to have generalized osteoarthritis. PAST SURGICAL HISTORY: Significant for aortic valve replacement, transurethral resection of the prostate and a permanent pacemaker placement. ALLERGIES: He has no known drug allergies. FAMILY HISTORY: According to him, he is the only child. He was adopted. He does not know his biological parents. SOCIAL HISTORY: He is , has 1 son. He smokes 15 cigarettes a day, has been a smoker since he was 12 years old. He drinks alcohol since he was a kid. He has not drunk any alcohol since he was incarcerated for 10 years. He used to smoke marijuana while he was in [place] and he came unfortunately last night with alcohol intoxication. He said that he has been drinking about a fifth of vodka every day. MEDICATIONS: He is currently on following medications: He is on albuterol sulfate 1 puff every 6 hours, apixaban 5 mg twice a day, metoprolol tartrate 50 mg twice a day, lisinopril 10 mg once a day and furosemide 40 mg once a day. REVIEW OF SYSTEMS: The patient denied any blurring of vision, cataract, glaucoma or macular degeneration. Denied any earache, tinnitus or sensorineural deafness. Denied any nosebleeds, stuffy nose or postnasal drip. Denied any sore throat, sore tongue, toothache, hoarseness of voice or difficulty swallowing. He denied any nausea, vomiting, diarrhea or constipation. Denied any hematemesis, melena or hematochezia. Denied any dysuria, frequency or hematuria. He did complain of chest pain and shortness of breath, but denied any orthopnea or paroxysmal nocturnal dyspnea. Denied any cough, phlegm or hemoptysis. Denied any dizziness, lightheadedness or vertigo. PHYSICAL EXAMINATION: GENERAL: On arrival to the Emergency Room, he looked well and was clearly in no apparent respiratory distress. There was no pallor, jaundice, cyanosis, or thyromegaly. No jugular venous distention. No limb edema. VITAL SIGNS: His heart rate was 119, blood pressure was 129/72, temperature was 98.4, respiratory rate 20, and oxygen saturation was 92%. HEAD, EYES, EARS, NOSE AND THROAT: Showed normocephalic, atraumatic. NECK: Supple. HEART: Showed normal first and second heart sounds. No gallop or murmur. CHEST: Clear to auscultation. No crepitation or rhonchi. ABDOMEN: Distended, soft, nontender. No guarding or rigidity. No organomegaly. All hernial orifices intact. Bowel sounds normal. NEUROLOGIC: He was awake, alert, responding appropriately. All cranial nerves intact. EXTREMITIES: He moves extremities without difficulty, ambulates with a cane. LABORATORY DATA: His lab work on arrival showed a white cell count 9700, hemoglobin 14, hematocrit 42, MCV 95, and platelet count 302,000. His chemistry showed a serum sodium 138, potassium 3.8, chloride 100, bicarbonate 22, anion gap of 16, BUN 10, creatinine 0.9, estimated GFR was 82 mL per minute. His glucose 119, calcium was 8.6, magnesium was 1.8. Total bilirubin, AST, ALT, alkaline phosphatase were normal. His first troponin was less than 0.017. His beta natriuretic peptide was 1759. Total protein 6.9, albumin 3.4. Serum lipase 124. TSH was normal at 0.537. His prothrombin time, INR and aPTT as well as D-dimer are all normal. Urinalysis essentially negative and toxic screen was positive for blood alcohol level of 134 mg/dL, negative for all other drugs. ASSESSMENT AND PLAN: In summary, this is a 73-year-old male patient who was admitted with mechanical fall due to weakness. Also, complained of chest pain, alcohol intoxication. He is known to have aortic valve replacement with bioprosthetic valve. He is on apixaban. Has also paroxysmal atrial fibrillation with rapid ventricular response for which he has a permanent pacemaker. Chronic obstructive pulmonary disease, history of prostate cancer and congestive heart failure. We will do 2 more sets of cardiac enzymes, check his fasting lipid profile. We have consulted the exhauster engineer. We will reconcile all his medications. MADELYN MALONEY MD DR: HI/aissatou JOB#: [id number] / [id number]
[2019-06-11 16:15] VITALS: BP 113/63
[2019-06-11] MEDS ORDERED: RIVAROXABAN 10 MG TABLET. PO SCH (17:00)
[2019-06-11 20:19] VITALS: BP 114/74
[2019-06-11] MEDS ORDERED: APIXABAN 5 MG TABLET. PO SCH (21:00)
[2019-06-11 23:34] VITALS: BP 121/71
[2019-06-12 05:56] VITALS: BP 113/51
[2019-06-12 06:24] LABS: BASO # 0.1 x10^3/uL (0.0-0.2); BASO % 1 % (0-3); EOS # 0.5 x10^3/uL (0.0-0.7); EOS % 6 % (0-3); HEMATOCRIT 39.6 % (39.0-53.0); HEMOGLOBIN 13.4 g/dL (13.0-17.5); LYMPH # 1.3 x10^3/uL (1.0-4.8); LYMPH % 17 % (24-48); MEAN CORPUSCULAR HEMOGLOBIN 32 pg (25-35); MEAN CORPUSCULAR HGB CONC 34 g/dL (31-37); MEAN CORPUSCULAR VOLUME 94 fL (79-100); MONO # 0.6 x10^3/uL (0.0-1.1); MONO % 8 % (0-9); NEUT # 5.5 x10^3uL (1.8-7.7); NEUT % 68 % (31-73); PLATELET COUNT 245 x10^3/uL (140-400); RED CELL DISTRIBUTION WIDTH 13.8 % (11.5-14.5); WHITE BLOOD COUNT 8.1 x10^3/uL (4.0-11.0)
[2019-06-12 06:27] LABS: CALCIUM 8.7 mg/dL (8.5-10.1); CREATININE 0.7 mg/dL (0.7-1.3); GFR 109.9
--- NOTE | 2019-06-12 08:01 | PDOC ---
CARDIO Progress Notes Date & Time Date of Service DATE: 06/12/19 TIME: 08:00 Time of Evaluation 08:00 Subjective Notes No chest pain, palpitations, dizziness. Feels fatigued this am Vitals Vitals Vital Signs Date Time Temp Pulse Resp B/P (MAP) Pulse Ox O2 Delivery O2 Flow Rate FiO2 06/12/19 05:56 98.1 85 18 113/51 (71) 95 Room Air Weight Weight [ ] Input and Output I.O. Intake and Output 06/12/19 07:00 Intake Total 840 ml Output Total 400 ml Balance 440 ml Intake Oral 840 ml Output Urine Total 400 ml Laboratory Labs Laboratory Tests Test 06/10/19 21:10 06/10/19 21:56 06/10/19 22:26 06/10/19 23:00 White Blood Count 9.7 x10^3/uL (4.0-11.0) Red Blood Count 4.47 x10^6/uL (4.30-5.70) Hemoglobin 14.1 g/dL (13.0-17.5) Hematocrit 42.2 % (39.0-53.0) Mean Corpuscular Volume 95 fL (79-100) Mean Corpuscular Hemoglobin 32 pg (25-35) Mean Corpuscular Hemoglobin Concent 33 g/dL (31-37) Red Cell Distribution Width 14.1 % (11.5-14.5) Platelet Count 302 x10^3/uL (140-400) Neutrophils (%) (Auto) 71 % (31-73) Lymphocytes (%) (Auto) 17 % (24-48) Monocytes (%) (Auto) 7 % (0-9) Eosinophils (%) (Auto) 4 % (0-3) Basophils (%) (Auto) 0 % (0-3) Neutrophils # (Auto) 6.9 x10^3uL (1.8-7.7) Lymphocytes # (Auto) 1.7 x10^3/uL (1.0-4.8) Monocytes # (Auto) 0.7 x10^3/uL (0.0-1.1) Eosinophils # (Auto) 0.4 x10^3/uL (0.0-0.7) Basophils # (Auto) 0.0 x10^3/uL (0.0-0.2) Segmented Neutrophils % 60 % (35-66) Band Neutrophils % 5 % (0-9) Lymphocytes % 21 % (24-48) Monocytes % 8 % (0-10) Eosinophils % 6 % (0-5) Platelet Estimate Adequate (ADEQUATE) Sodium Level 138 mmol/L (136-145) Potassium Level 3.8 mmol/L (3.5-5.1) Chloride Level 100 mmol/L (98-107) Carbon Dioxide Level 22 mmol/L (21-32) Anion Gap 16 (6-14) Blood Urea Nitrogen 10 mg/dL (8-26) Creatinine 0.9 mg/dL (0.7-1.3) Estimated GFR (Cockcroft-Gault) 82.3 Glucose Level 119 mg/dL (70-99) Calcium Level 8.6 mg/dL (8.5-10.1) Magnesium Level 1.8 mg/dL (1.8-2.4) Total Bilirubin 0.5 mg/dL (0.2-1.0) Direct Bilirubin 0.2 mg/dL (0.0-0.2) Aspartate Amino Transf (AST/SGOT) 25 U/L (15-37) Alanine Aminotransferase (ALT/SGPT) 31 U/L (16-63) Alkaline Phosphatase 124 U/L (46-116) Creatine Kinase 112 U/L (39-308) Troponin I Quantitative < 0.017 ng/mL (0-0.055) OE-Yak-B-Type Natriuretic Peptide 1759 pg/mL (0-449) Total Protein 6.9 g/dL (6.4-8.2) Albumin 3.4 g/dL (3.4-5.0) Lipase 124 U/L (73-393) Thyroid Stimulating Hormone (TSH) 0.537 uIU/mL (0.358-3.740) Ethyl Alcohol Level 134 mg/dL (0-10) Influenza Type A (Rapid) Negative (NEGATIVE) Influenza Type B (Rapid) Negative (NEGATIVE) Group A Streptococcus Rapid Negative (NEGATIVE) Prothrombin Time 10.7 SEC (9.4-11.4) Prothromb Time International Ratio 1.0 (0.9-1.1) Activated Partial Thromboplast Time 28 SEC (23-33) D-Dimer (Marla) 0.41 mg/L (0.00-0.50) Urine Collection Type Unknown Urine Color Yellow Urine Clarity Clear Urine pH 5.5 Urine Specific [place] <=1.005 Urine Protein Neg (NEG-TRACE) Urine Glucose (UA) Neg mg/dL (NEG) Urine Ketones (Stick) Neg mg/dL (NEG) Urine Blood Neg (NEG) Urine Nitrite Neg (NEG) Urine Bilirubin Neg (NEG) Urine Urobilinogen Dipstick 0.2 mg/dL (0.2 mg/dL) Urine Leukocyte Esterase Neg (NEG) Urine RBC 0 /HPF (0-2) Urine WBC Occ /HPF (0-4) Urine Squamous Epithelial Cells Occ /LPF Urine Bacteria Few /HPF (0-FEW) Urine Hyaline Casts Mod /HPF Urine Mucus Slight /LPF Urine Opiates Screen Neg (NEG) Urine Methadone Screen Neg (NEG) Urine Barbiturates Neg (NEG) Urine Phencyclidine Screen Neg (NEG) Urine Amphetamine/Methamphetamine Neg (NEG) Urine Benzodiazepines Screen Neg (NEG) Urine Cocaine Screen Neg (NEG) Urine Cannabinoids Screen Neg (NEG) Urine Ethyl Alcohol Pos (NEG) Test 06/11/19 06:24 06/11/19 11:47 06/11/19 15:55 06/12/19 05:56 Ethyl Alcohol Level < 10 mg/dL (0-10) Troponin I Quantitative < 0.017 ng/mL (0-0.055) < 0.017 ng/mL (0-0.055) White Blood Count 8.1 x10^3/uL (4.0-11.0) Red Blood Count 4.20 x10^6/uL (4.30-5.70) Hemoglobin 13.4 g/dL (13.0-17.5) Hematocrit 39.6 % (39.0-53.0) Mean Corpuscular Volume 94 fL (79-100) Mean Corpuscular Hemoglobin 32 pg (25-35) Mean Corpuscular Hemoglobin Concent 34 g/dL (31-37) Red Cell Distribution Width 13.8 % (11.5-14.5) Platelet Count 245 x10^3/uL (140-400) Neutrophils (%) (Auto) 68 % (31-73) Lymphocytes (%) (Auto) 17 % (24-48) Monocytes (%) (Auto) 8 % (0-9) Eosinophils (%) (Auto) 6 % (0-3) Basophils (%) (Auto) 1 % (0-3) Neutrophils # (Auto) 5.5 x10^3uL (1.8-7.7) Lymphocytes # (Auto) 1.3 x10^3/uL (1.0-4.8) Monocytes # (Auto) 0.6 x10^3/uL (0.0-1.1) Eosinophils # (Auto) 0.5 x10^3/uL (0.0-0.7) Basophils # (Auto) 0.1 x10^3/uL (0.0-0.2) Sodium Level 138 mmol/L (136-145) Potassium Level 4.0 mmol/L (3.5-5.1) Chloride Level 101 mmol/L (98-107) Carbon Dioxide Level 30 mmol/L (21-32) Anion Gap 7 (6-14) Blood Urea Nitrogen 7 mg/dL (8-26) Creatinine 0.7 mg/dL (0.7-1.3) Estimated GFR (Cockcroft-Gault) 109.9 Glucose Level 111 mg/dL (70-99) Calcium Level 8.7 mg/dL (8.5-10.1) Physical Exams HEENT: Neck Supple W Full Motion Chest: Symmetric Lungs: Other (diminished throuhgout ) Heart: S1S2, RRR Abdomen: Soft N/T Extremities: No Edema Neurology: alert, oriented, follow commands Assessment Assessment 1. Mechanical fall secondary to ETOH intoxication. Hip/pelvis Xray without acute fracture. Drinks a fifth of Vodka daily 2. PAFIB with RVR; converted back to SR and has been maintaining. Secondary to misses metoprolol. Ran out 2-3 days prior to arrival. On Xarelto for stroke prophylaxis. 3. S/p bioprosthetic AVR 4. SSS s/p PPM. Does not follow with routine test lead 5. Chronic CHF; appears compensated 6. COPD with continued tobaccoism; discussed/encouraged cessation 7. H/o prostate cancer. 8. Homelessness Recommendations Baseline echo to assess LV systolic function, aortic valve Continue metoprolol for rate control Xarelto for stroke prophylaxis Discussed cessation from ETOH, tobacco Social service for med assistance, homelessness. BRITTANIE JOHN APRN Jun 12, 2019 08:01
[2019-06-12] MEDS: PRENATAL MULTIVITAMIN TABLET. PO SCH (08:13)
[2019-06-12] MEDS: FUROSEMIDE 40 MG TABLET PO SCH (08:13)
[2019-06-12] MEDS: METOPROLOL TART IMMED RELEASE 50 MG TABLET PO SCH (08:13)
[2019-06-12] MEDS: LISINOPRIL 10 MG TABLET PO SCH (08:16)
[2019-06-12 11:30] VITALS: BP 119/80
--- NOTE | 2019-06-12 14:58 | DS ---
DATE OF DISCHARGE: 06/12/2019 HOSPITAL COURSE: The patient is a 73-year-old male patient who was admitted after he suffered a mechanical fall secondary to alcohol intoxication with a complaint of hip and pelvic pain; however, his x-ray showed no evidence of fracture. He also complained of chest pain as well as paroxysmal atrial fibrillation with RVR. He converted to sinus rhythm. He remained hemodynamically stable. He is in sinus rhythm, has had 3 sets of cardiac enzymes that ruled out myocardial infarction. He was seen by the Cardiology team and the plan for him to follow up with them as an outpatient for an echocardiogram and perhaps further ischemic workup. PHYSICAL EXAMINATION: GENERAL: When I saw him this afternoon, he was sitting on the edge of the bed comfortably in no apparent distress. There was no pallor, jaundice, cyanosis or thyromegaly. No jugular venous distention. No limb edema. VITAL SIGNS: Heart rate was 83. His blood pressure was 119/80, temperature was 98.1, respiratory rate 20, and oxygen saturation was 95%. HEAD, EYES, EARS, NOSE AND THROAT: Showed normocephalic, atraumatic. NECK: Supple. HEART: Showed normal first and second heart sounds. No gallop, rub or murmur. CHEST: Clear to auscultation. No crepitation or rhonchi. ABDOMEN: Distended, soft, nontender. NEUROLOGIC: He was awake, alert, responding appropriately. All cranial nerves intact. He ambulates without assistance or assistive devices. His intake was 1300, output was 600. LABORATORY DATA: This morning showed a white cell count of 8100, hemoglobin 13.4, hematocrit 39, MCV 94 and platelet count 245,000. Serum sodium this morning was 138, potassium 4, chloride 101, bicarbonate 30, anion gap of 7, BUN 7, creatinine 0.7, estimated GFR was 109 mL per minute. His glucose was 111, calcium was 8.7. His prothrombin time, INR, aPTT and D-dimer are all normal. Urinalysis essentially unremarkable. Toxic screen was positive for blood alcohol level on admission of 134 mg/dL. His influenza A, B and group A streptococcus were negative. His COVID-19 by PCR was negative. DISCHARGE MEDICATIONS: He was discharged on albuterol sulfate for ProAir 1 puff every 6 hours, apixaban 5 mg twice a day, furosemide 40 mg once a day, lisinopril 10 mg once a day, metoprolol tartrate 50 mg twice a day, however, I offered to give him prescription for all his medication, but he refused. He is obviously homeless and he continues to abuse alcohol and smoke cigarettes. We had a lengthy discussion; however, he is not willing to change his ways and therefore, he will be discharged to the homeless correction in [place]. MADELYN MALONEY MD DR: HI/aissatou JOB#: [id number] / [id number]
== END 2019-06-12 15:08 | disposition home or self-care (01) | DRG 391 ==
LOC: ER 20:59 → 1 SOUTH 06-11 01:29 → OBSVTOIN 06-12 09:10 → 1 SOUTH 06-12 12:51
PROVIDERS: ADMIT Internal Medicine; ATTEND Internal Medicine
DX: K21.9 Gastro-esophageal reflux disease without esophagitis (principal); I50.33 Acute on chronic diastolic (congestive) heart failure; I11.0 Hypertensive heart disease with heart failure; I48.0 Paroxysmal atrial fibrillation; F10.229 Alcohol dependence with intoxication, unspecified; F17.210 Nicotine dependence, cigarettes, uncomplicated; I35.0 Nonrheumatic aortic (valve) stenosis; I49.5 Sick sinus syndrome; M15.9 Polyosteoarthritis, unspecified; N40.0 Benign prostatic hyperplasia without lower urinary tract symptoms; Y90.6 Blood alcohol level of 120-199 mg/100 ml; Z59.0 Homelessness; Z79.01 Long term (current) use of anticoagulants; Z82.49 Family history of ischemic heart disease and other diseases of the circulatory system; Z85.46 Personal history of malignant neoplasm of prostate; Z95.0 Presence of cardiac pacemaker; Z95.3 Presence of xenogenic heart valve; W18.39XA Other fall on same level, initial encounter; Y93.89 Activity, other specified; Y92.89 Other specified places as the place of occurrence of the external cause; Y99.8 Other external cause status; J44.9 Chronic obstructive pulmonary disease, unspecified; Z71.6 Tobacco abuse counseling; Z87.01 Personal history of pneumonia (recurrent); Z20.828 Contact with and (suspected) exposure to other viral communicable diseases
CPT/HCPCS: 36415; 71045; 73502; 80048; 80061; 80076; 80307; 81001; 82550; 83690; 83735; 83880; 84443; 84484; 85007; 85025; 85379; 85610; 85730; 87070; 87635; 87804; 87880; 93005; 94640; 96374; 96375; G0378; G0379; G0480; J1940; J7120; 99285-25

== ENCOUNTER 2019-06-12 20:04 | Emergency (ER) | payer SELFPAY ==
[~2019-06-12] VITALS: Ht 182.9 cm; Wt 128.7 kg
[2019-06-12] MEDS ORDERED: ASPIRIN CHEWABLE 81 MG TABLET. ONE (20:07)
--- NOTE | 2019-06-12 20:37 | PHYS DOC ---
Past History Past Medical History: A-Fib, Alcoholism, Angina, Arthritis, Bronchitis, Cancer, COPD, Hypertension, Other Past Surgical History: Cancer Surgery, Pacemaker, Other Additional Past Surgical Histo: aortic valve replacement, pacemaker Smoking: Cigarettes Alcohol Use: Heavy Drug Use: None General Adult EDM: Chief Complaint: CHEST PAIN HPI: HPI: ".. They just discharged me... I think you were the one that admitted me the other day...".."...Well I started getting chest pain again.. here in the center of my chest... it has been constant for about 2 hrs before .. I called the ambulance..." Patient is a 73 year old male who presents with above hx and complaints of chest pain. Pt.localizes pain to central area of chest. Pt. recently admitted on 06/10/2019 for chest pain rule out. Patient was evaluated with serial enzymes and discharged after cardiology consult on 2019. At that time patient refused prescription for his medications and patient was employed to avoid alcohol abuse and stop smoking. At that time patient unwilling to change any behaviors that put him at increased risk. Patient does have study of past medical history for hypertension, atrial fibrillation, aortic valve replacement, prostate cancer post radiotherapy, COPD, chronic bronchitis, and generalized osteoarthritis. Patient continues to smoke at least 15 cigarettes a day and has smoked heavily since 12 years old. Patient the past has been seen at the [facility]. See recent hospital admission record and discharge. Review of Systems: Review of Systems: Constitutional: Denies fever or chills Eyes: Denies change in visual acuity HENT: Denies nasal congestion or sore throat Respiratory: Denies cough or shortness of breath Cardiovascular: Complains of sternal chest pain and edema GI: Denies abdominal pain, nausea, vomiting, bloody stools or diarrhea : Denies dysuria Musculoskeletal: Denies back pain or joint pain Integument: Denies rash Neurologic: Denies headache, focal weakness or sensory changes Endocrine: Denies polyuria or polydipsia Lymphatic: Denies swollen glands Psychiatric: Denies depression or anxiety Heart Score: HEART Score for Chest Pain: HEART Score for Chest Pain Response (Comments) Value History Moderately Suspicious 1 ECG Nonspecific Repolarizatio 1 Age > 65 2 Risk Factors >3 Risk Factors or Hx CAD 2 Troponin < Normal Limit 0 Total 6 Risk Factors: Risk Factors: DM, Current or recent (<one month) smoker, HTN, HLP, family history of CAD, obesity. Risk Scores: Score 0 - 3: 2.5% MACE over next 6 weeks - Discharge Home Score 4 - 6: 20.3% MACE over next 6 weeks - Admit for Clinical Observation Score 7 - 10: 72.7% MACE over next 6 weeks - Early Invasive Strategies Family History: Family History: Family history is limited as patient states he is adopted Current Medications: Current Meds: Current Medications Medications (Trade) Dose Ordered Sig/Nicolas Start Time Stop Time Status Last Admin Dose Admin Aspirin (Aspirin Chewable) 81 mg STK-MED ONCE 06/12/19 20:07 06/12/19 20:07 DC Allergies: Allergies: Allergies Coded Allergies Type Severity Reaction Last Updated Verified No Known Drug Allergies 05/12/18 No Physical Exam: PE: Constitutional: , no acute distress, non-toxic appearance. [] HENT: Normocephalic, atraumatic, bilateral external ears normal, oropharynx moist, no oral exudates, nose normal. [] Eyes: PERRLA, EOMI, conjunctiva normal, no discharge. [] Neck: Normal range of motion, no tenderness, supple, no stridor. [] Cardiovascular: Irregular heart rate and rhythm, aortic murmur [] PMI to the left Lungs & Thorax: Bilateral breath sounds equal at apex with scattered wheezes on auscultation [] basilar crackles. Patient localizes chest pain to sternum. Pain is reproduced with palpation deep breaths and cough Abdomen: Bowel sounds normal, soft, no tenderness, no masses, no pulsatile masses. [] Morbidly obese Skin: Warm, dry, no erythema, no rash. [] Back: No tenderness, no CVA tenderness. [] Extremities: No tenderness, no cyanosis, no clubbing, ROM intact, bilateral leg edema. [] No obvious cording Neurologic: Alert and oriented X 3, normal motor function, normal sensory function, no focal deficits noted. [] Psychologic: Affect normal, judgement normal, mood normal. [] EKG: EKG: My interpretation of EKG show A. fib with ventricular response of 90. Does have an occasional PVC. Right bundle branch block and RV repull. Overall similar to prior EKGs on file Repeat EKG at 2317 hrs. shows a A. fib with a ventricular response of 91 bpm. There is slightly AL interval increase as compared to prior EKG does have the bu ndle branch block and RVH repolarization issues but no significant change from prior EKG and EKGs on file. [] Radiology/Procedures: Radiology/Procedures: [][address] [id number] IMAGING REPORT Signed PATIENT: HASEEB DYER DACCOUNT: [id number] : 1945 LOCATION: ER AGE: 73 SEX: M EXAM STATUS: REG ER ORD. PHYSICIAN: HASEEB EUCEDA MD REASON: CHEST PAIN, H/O - COPD, A-FIB, ANGINA PROCEDURE: PORTABLE CHEST 1V PORTABLE CHEST 1V 06/12/2019 8:47 PM INDICATION: Chest pain, history of COPD and atrial fibrillation COMPARISON: 06/10/2019 TECHNIQUE: Portable frontal view of the chest is provided. FINDINGS: The cardiomediastinal silhouette is enlarged, stable left chest wall cardiac device is in similar position. Median sternotomy changes are present. Bibasilar interstitial changes are noted. There are no significant pleural effusions. There is no pulmonary vascular congestion. No pneumothorax. No suspicious osseous abnormality. IMPRESSION: Bibasilar interstitial changes may represent subsegmental atelectasis versus scarring. Electronically signed by: Noemi Stokes MD (06/12/2019 10:26 PM) [facility] DICTATED AND SIGNED BY: NOEMI STOKES MD DATE: 06/12/192225 CC: HASEEB EUCEDA MD; PCP,NO ~ Course & Med Decision Making: Course & Med Decision Making Pertinent Labs and Imaging studies reviewed. (See chart for details) Encourage patient to stop smoking. Encouraged patient to stop and alcohol use. Patient encouraged to keep follow-up as as previously directed. Patient to review ED work-up with primary care. Patient take meds as previously directed on his discharge. Impression: 1. Chest Pain- Chest Wall 2. Tobacco abuse 3. Alcohol abuse = 63 4. CHF diastolic dysfunction BNP 1499 5. Elevated AST 40 elevated alk phos 133 6. Degenerative joint disease-arthritis 7. Porcelain aortic valve 8. History of atrial fibrillation [] Dragon Disclaimer: Dragon Disclaimer: This electronic medical record was generated, in whole or in part, using a voice recognition dictation system. Departure Departure: Disposition: 01 HOME/RESIDENCE PRIOR TO ADM Condition: STABLE Referrals: PCP,NO (PCP) Ricardo Disclaimer This chart was dictated in whole or in part using Voice Recognition software in a busy, high-work load, and often noisy Emergency Department environment. It may contain unintended and wholly unrecognized errors or omissions. Dragon Disclaimer This chart was dictated in whole or in part using Voice Recognition software in a busy, high-work load, and often noisy Emergency Department environment. It may contain unintended and wholly unrecognized errors or omissions. Dragon Disclaimer This chart was dictated in whole or in part using Voice Recognition software in a busy, high-work load, and often noisy Emergency Department environment. It may contain unintended and wholly unrecognized errors or omissions. HASEEB EUCEDA MD Jun 12, 2019 20:37
[2019-06-12] MEDS ORDERED: IV RINGERS SOLUTION,LACTATED 1,000 ML IV SCH (20:47)
[2019-06-12 21:11] LABS: BASO # 0.1 x10^3/uL (0.0-0.2); BASO % 1 % (0-3); EOS # 0.3 x10^3/uL (0.0-0.7); EOS % 3 % (0-3); HEMATOCRIT 42.4 % (39.0-53.0); HEMOGLOBIN 14.1 g/dL (13.0-17.5); LYMPH # 1.3 x10^3/uL (1.0-4.8); LYMPH % 13 % (24-48); MEAN CORPUSCULAR HEMOGLOBIN 31 pg (25-35); MEAN CORPUSCULAR HGB CONC 33 g/dL (31-37); MEAN CORPUSCULAR VOLUME 94 fL (79-100); MONO # 0.7 x10^3/uL (0.0-1.1); MONO % 7 % (0-9); NEUT # 7.2 x10^3uL (1.8-7.7); NEUT % 76 % (31-73); PLATELET COUNT 271 x10^3/uL (140-400); RED BLOOD COUNT 4.51 x10^6/uL (4.30-5.70); RED CELL DISTRIBUTION WIDTH 13.9 % (11.5-14.5); WHITE BLOOD COUNT 9.4 x10^3/uL (4.0-11.0)
[2019-06-12 21:13] LABS: CALCIUM 8.8 mg/dL (8.5-10.1); CREATININE 0.7 mg/dL (0.7-1.3); GFR 109.9; POTASSIUM 3.8 mmol/L (3.5-5.1)
[2019-06-12 21:24] LABS: ALBUMIN 3.7 g/dL (3.4-5.0); DIRECT BILIRUBIN 0.1 mg/dL (0.0-0.2); MAGNESIUM 1.9 mg/dL (1.8-2.4); TOTAL BILIRUBIN 0.4 mg/dL (0.2-1.0); TOTAL PROTEIN 6.7 g/dL (6.4-8.2)
[2019-06-12 21:29] LABS: AMPHETAMINE/METHAMPHETAMINE NEG (NEG); BARBITURATES NEG (NEG); BENZODIAZEPINES NEG (NEG); CANNABINOIDS NEG (NEG); COCAINE NEG (NEG); METHADONE NEG (NEG); OPIATES NEG (NEG); PHENCYCLIDINE NEG (NEG)
[2019-06-12 21:49] LABS: BACTERIA,URINE 0 /HPF (0-FEW); BILIRUBIN,URINE NEG (NEG); CLARITY,URINE CLEAR; COLOR,URINE YELLOW; GLUCOSE,URINE NEG (NEG); NITRITE,URINE NEG (NEG); RBC,URINE 0 /HPF (0-2); SQUAMOUS EPITHELIAL CELL,UR OCC /LPF; UROBILINOGEN,URINE 0.2 mg/dL (0.2 mg/dL); WBC,URINE 0 /HPF (0-4)
--- NOTE | 2019-06-12 22:28 | RAD ---
PORTABLE CHEST 1V 06/12/2019 8:47 PM INDICATION: Chest pain, history of COPD and atrial fibrillation COMPARISON: 06/10/2019 TECHNIQUE: Portable frontal view of the chest is provided. FINDINGS: The cardiomediastinal silhouette is enlarged, stable left chest wall cardiac device is in similar position. Median sternotomy changes are present. Bibasilar interstitial changes are noted. There are no significant pleural effusions. There is no pulmonary vascular congestion. No pneumothorax. No suspicious osseous abnormality. IMPRESSION: Bibasilar interstitial changes may represent subsegmental atelectasis versus scarring. Electronically signed by: Genna Alfaro MD (06/12/2019 10:26 PM) [facility]
[2019-06-12] MEDS ORDERED: FUROSEMIDE 40 MG/4 ML VIAL IVP ONE (22:30)
[2019-06-12] MEDS ORDERED: ACETAMINOPHEN 500 MG TABLET PO ONE (23:00)
--- NOTE | 2019-06-12 23:43 | EKG ---
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 RIGHT BUNDLE BRANCH BLOCK RVH WITH REPOLARIZATION ABNORMALITY NONSPECIFIC ST-T WAVE CHANGES. Electronically Signed On 06-13-2019 11:22:15 CDT by Louis Brown
--- NOTE | 2019-06-12 23:45 | EKG ---
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 Electronically Signed On 06-13-2019 11:20:04 CDT by Louis Brown
[2019-06-13 00:25] VITALS: BP 109/80
== END 2019-06-13 00:25 | disposition home or self-care (01) ==
LOC: ER 20:04
DX: R07.89 Other chest pain (principal); I11.0 Hypertensive heart disease with heart failure; I50.30 Unspecified diastolic (congestive) heart failure; R74.8 Abnormal levels of other serum enzymes; M19.90 Unspecified osteoarthritis, unspecified site; I48.91 Unspecified atrial fibrillation; J44.9 Chronic obstructive pulmonary disease, unspecified; F10.20 Alcohol dependence, uncomplicated; F12.10 Cannabis abuse, uncomplicated; F17.210 Nicotine dependence, cigarettes, uncomplicated; Y90.3 Blood alcohol level of 60-79 mg/100 ml
CPT/HCPCS: 36415; 71045; 80048; 80076; 80307; 81001; 82550; 83690; 83735; 83880; 84484; 85025; 85610; 85730; 93005; 96374; 99285; G0480; J1940; J7120

== ENCOUNTER 2019-06-15 13:30 | Inpatient (IN) | payer MEDICARE ==
[~2019-06-15] VITALS: Ht 182.9 cm; Wt 129.8 kg
--- NOTE | 2019-06-15 14:04 | RAD ---
Examination: CHEST AP ONLY History: Atrial fibrillation Comparison: 06/12/2019 Portable Chest X-ray Exam. Findings: AP portable upright frontal view of the chest was obtained. Dual lead left-sided pacemaker is present. Sternal wires and mediastinal clips are present. The cardiomediastinal silhouette is normal. Lungs are clear. There is no pneumothorax. No pleural effusion is appreciated. No acute bone abnormality. IMPRESSION: No acute cardiopulmonary process. Electronically signed by: Thad Henning MD (06/15/2019 2:01 PM) [id number]
[2019-06-15] MEDS ORDERED: MELOXICAM 15 MG TABLET. PO SCH (14:15)
--- NOTE | 2019-06-15 14:26 | EKG ---
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
[2019-06-15 14:27] LABS: CALCIUM 9.5 mg/dL (8.5-10.1); CREATININE 0.8 mg/dL (0.7-1.3); GFR 94.2; POTASSIUM 3.9 mmol/L (3.5-5.1)
[2019-06-15] MEDS ORDERED: METOPROLOL TARTRATE 5 MG/5 ML VIAL. IV ONE (14:30)
[2019-06-15] MEDS ORDERED: ASPIRIN CHEWABLE 81 MG TABLET. PO ONE (14:30)
[2019-06-15 14:35] LABS: BASO # 0.1 x10^3/uL (0.0-0.2); BASO % 1 % (0-3); EOS # 0.2 x10^3/uL (0.0-0.7); EOS % 2 % (0-3); HEMATOCRIT 42.3 % (39.0-53.0); HEMOGLOBIN 14.1 g/dL (13.0-17.5); LYMPH # 0.8 x10^3/uL (1.0-4.8); LYMPH % 10 % (24-48); MEAN CORPUSCULAR HEMOGLOBIN 31 pg (25-35); MEAN CORPUSCULAR HGB CONC 33 g/dL (31-37); MEAN CORPUSCULAR VOLUME 95 fL (79-100); MONO # 1.1 x10^3/uL (0.0-1.1); MONO % 13 % (0-9); NEUT # 6.5 x10^3uL (1.8-7.7); NEUT % 76 % (31-73); PLATELET COUNT 262 x10^3/uL (140-400); RED BLOOD COUNT 4.48 x10^6/uL (4.30-5.70); RED CELL DISTRIBUTION WIDTH 14.4 % (11.5-14.5); WHITE BLOOD COUNT 8.6 x10^3/uL (4.0-11.0)
--- NOTE | 2019-06-15 16:44 | NUR ---
NURSING NOTE ADMIT PT DIRECT ADMIT FROM ED VIA EMS TO ROOM 109 FOR DX OF ATRIAL FIBRILLATION. PT STATES HE WAS WALKING ACROSS THE [employer] PARKING LOT, TRIPPED OVER A GRATE IN THE GROUND AND FELL ONTO HIS KNEES, STATES HE HAS PAIN IN HIS KNEES FROM THE FALL. PT WAS RECENTLY DISCHARGED FROM OUR FACILITY ON 06/12/2019 AND STATES SINCE HE LEFT HE HAS BEEN LIVING IN A SHACK BEHIND [facility] AND STATES HE HAS NOT HAD ANY FOOD SINCE HE HAS BEEN GONE. PT STATES PRIOR TO COMING TO [place], HE WAS LIVING AT [facility] WHICH IS A [facility] OF [facility] WHERE HE STAYED FOR A FEW MONTHS AND THEY WOULD GIVE HIM HIS MEDICATIONS. PT STATES SINCE HE LEFT THERE, HE HAS NOT HAD ANY MONEY FOR HIS MEDICATIONS AND HAS NOT BEEN ABLE TO GET THEM. 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 WHEN ASSESSING PT FOR SUICIDAL RISK FACTORS, PT STATES LAST NIGHT AND TODAY HE WAS HAVING THOUGHTS OF RUNNING INTO THE STREET STATING THAT HE COULDN'T TAKE IT ANYMORE. PT BECAME TEARFUL. PT WAS MOVED TO CLOSE ROOM IN LINE OF SIGHT AT NURSES STATION. PT DENIES ANY SUICIDAL THOUGHTS AT THIS TIME STATING THAT HE FEELS SAFE HERE AND IS ABLE TO GET WHAT HE NEEDS. PAGE FOR DR POWER SENT OUT FOR NOTIFICATION OF ADMISSION. WILL CONTINUE TO MONITOR. SANDRA COCHRAN.
--- NOTE | 2019-06-15 16:48 | PHYS DOC ---
Past History Past Medical History: A-Fib, Alcoholism, Angina, Arthritis, Bronchitis, Cancer, COPD, Hypertension, Other Past Surgical History: Cancer Surgery, Pacemaker, Other Additional Past Surgical Histo: aortic valve replacement, pacemaker Smoking: Cigarettes Alcohol Use: Heavy Drug Use: None Adult General Chief Complaint Chief Complaint: Palpitations HPI HPI Patient is a 73 year old male who presents with complaining of palpitations and knee pain. Patient has a history of atrial fibrillation, homelessness, alcoholism, noncompliance. He fell down onto his knees and started having palpitation so he came into the emergency room. He has not been taking any of h is atrial fibrillation medications. He states he is having chest pain and tightness. He denies any cough or fever. Review of Systems Review of Systems General: Denies fever, chills, sweats, fatigue Eyes: Denies drainage, blurred vision HENT: Denies rhinorrhea, sore throat Respiratory: Denies cough, shortness of breath, wheezing Cardiac: Denies edema, palpitations reports chest pain GI: Denies abdominal pain, N/V MSK: Denies back pain, neck pain Skin: Denies rash, jaundice Neuro: Denies headache, dizziness Psychiatric: Denies SI/HI All other systems were reviewed and found to be within normal limits, except as documented in this note. Current Medications Current Medications Current Medications Medications (Trade) Dose Ordered Sig/Nicolas Start Time Stop Time Status Last Admin Dose Admin Aspirin (Aspirin Chewable) 324 mg 1X ONCE 06/15/19 14:30 06/15/19 14:31 DC 06/15/19 14:34 324 MG Meloxicam (Mobic) 15 mg 1X 06/15/19 14:15 06/15/19 14:34 15 MG Metoprolol Tartrate (Lopressor Vial) 5 mg 1X ONCE 06/15/19 14:30 06/15/19 14:31 DC 06/15/19 14:35 5 MG Allergies Allergies Allergies Coded Allergies Type Severity Reaction Last Updated Verified No Known Drug Allergies 05/12/18 No Physical Exam Physical Exam Constitutional: Well developed, well nourished, Cooperative, NAD, non-toxic appearing HEENT: Normocephalic, atraumatic, oropharynx moist, EOMI, PERRL, no drainage from eyes, normal conjunctiva Neck: Supple, normal range of motion, no stridor Cardiovascular: Irregularly irregular tachycardia, 2+ radial pulses bilaterally, no edema Respiratory: CTA bilaterally, no respiratory distress, no wheezing/crackles Abdomen: Soft, nontender, nondistended, no masses Skin: Warm, dry, intact, mild bruising on bilateral knees with old scabs Extremities: No obvious deformities Neurologic: Alert and Oriented x3, motor and sensory function grossly normal, no focal deficits Psychologic: Normal affect, normal judgment, normal mood. No SI/HI Current Patient Data Vital Signs Vital Signs Date Time Temp Pulse Resp B/P (MAP) Pulse Ox O2 Delivery O2 Flow Rate FiO2 06/15/19 15:41 128 20 143/85 (104) 97 Room Air 06/15/19 13:44 98.2 Lab Results Laboratory Tests Test 06/15/19 03:59 06/15/19 13:59 Ethyl Alcohol Level < 10 mg/dL (0-10) White Blood Count 8.6 x10^3/uL (4.0-11.0) Red Blood Count 4.48 x10^6/uL (4.30-5.70) Hemoglobin 14.1 g/dL (13.0-17.5) Hematocrit 42.3 % (39.0-53.0) Mean Corpuscular Volume 95 fL (79-100) Mean Corpuscular Hemoglobin 31 pg (25-35) Mean Corpuscular Hemoglobin Concent 33 g/dL (31-37) Red Cell Distribution Width 14.4 % (11.5-14.5) Platelet Count 262 x10^3/uL (140-400) Neutrophils (%) (Auto) 76 % (31-73) H Lymphocytes (%) (Auto) 10 % (24-48) L Monocytes (%) (Auto) 13 % (0-9) H Eosinophils (%) (Auto) 2 % (0-3) Basophils (%) (Auto) 1 % (0-3) Neutrophils # (Auto) 6.5 x10^3uL (1.8-7.7) Lymphocytes # (Auto) 0.8 x10^3/uL (1.0-4.8) L Monocytes # (Auto) 1.1 x10^3/uL (0.0-1.1) Eosinophils # (Auto) 0.2 x10^3/uL (0.0-0.7) Basophils # (Auto) 0.1 x10^3/uL (0.0-0.2) Sodium Level 138 mmol/L (136-145) Potassium Level 3.9 mmol/L (3.5-5.1) Chloride Level 99 mmol/L (98-107) Carbon Dioxide Level 27 mmol/L (21-32) Anion Gap 12 (6-14) Blood Urea Nitrogen 10 mg/dL (8-26) Creatinine 0.8 mg/dL (0.7-1.3) Estimated GFR (Cockcroft-Gault) 94.2 Glucose Level 111 mg/dL (70-99) H Calcium Level 9.5 mg/dL (8.5-10.1) Troponin I Quantitative < 0.017 ng/mL (0-0.055) EKG EKG [] Radiology/Procedures Radiology/Procedures [] Course & Med Decision Making Course & Med Decision Making Pertinent Labs and Imaging studies reviewed. (See chart for details) Patient is a 73-year-old noncompliant male who presents to the emergency room complaining of palpitations. Upon arrival patient is in atrial fibrillation with RVR. He was given metoprolol with improvement. Work-up was done and is re latively negative. Patient does not have the medication needed at home to treat his s atrial fibrillation. He will be admitted to the hospitalist for further care. Dragon Disclaimer Dragon Disclaimer This electronic medical record was generated, in whole or in part, using a voice recognition dictation system. Departure Departure: Impression: Primary Impression: Atrial fibrillation Disposition: ADMITTED INPATIENT Condition: STABLE Referrals: PCP,NO (PCP) GAYATRI OCHOA MD Jun 15, 2019 16:48
[2019-06-15 17:05] VITALS: BP 106/69
--- NOTE | 2019-06-15 18:09 | NUR ---
NURSING NOTE SPOKE WITH DR POWER AND NOTIFIED OF PT SITUATION. ORDER OBTAINED FOR METOPROLOL 100 MG PO NOW. ORDER CONTINUED FOR BID. WILL CONTINUE TO MONITOR. SANDRA COCHRAN.
[2019-06-15] MEDS: METOPROLOL TART IMMED RELEASE 50 MG TABLET PO SCH (18:15)
[2019-06-15 19:23] VITALS: BP 128/74
--- NOTE | 2019-06-15 20:27 | NUR ---
Pt denies SI thoughts at this time. Pt states that he has had just a rough patch. Pt remains [id number] check, within sight of nurses station.
[2019-06-15 22:56] VITALS: BP 97/59
--- NOTE | 2019-06-15 23:48 | NUR ---
Smoking Cessation- Patient was asleep. I left paperwork on bedside table and explained to the RN if he should wake and have questions to call me. Patient has had multiple addmissions and has been given paperwork on smoking cessation already. New graphic on back is recommended to read and will pass on to dayshift to follow up with patient.- Herman, RT
[2019-06-16 05:46] VITALS: BP 125/79
[2019-06-16] MEDS: METOPROLOL TART IMMED RELEASE 50 MG TABLET PO SCH ×2 (08:06→21:16)
--- NOTE | 2019-06-16 09:07 | NUR ---
NURSING NOTE AFTER ROUNDING WITH DR POWER, ORDER TO REMOVE TELE OBTAINED. SANDRA COCHRAN.
--- NOTE | 2019-06-16 09:21 | HP ---
ADMIT DATE: 06/15/2019 ATTENDING PHYSICIAN: Dr. Power. CHIEF COMPLAINT: Palpitations. HISTORY OF PRESENT ILLNESS: The patient is a 73-year-old homeless gentleman well known to us from previous admission. Dr. Iraheta had just discharged the patient Wednesday, 3 days prior to coming back in the ED. He has a longstanding history of permanent atrial fibrillation, homelessness, chronic alcoholism, noncompliance of meds. He fell down and hurt his knee. He started having palpitations. Evidently since he was discharged from the hospital, the shelters to have closed their doors due to the COVID-19 endemic. He has been living in a very small tool shed in the parking lot and waste can area of the local [facility]. This is actually right across the street from the hospital. Obviously, there is no running water, heat, etc. He states that his social history indicated that he had been incarcerated in [place], [place]. He is a former [place] , but he has no VA benefits because he was dishonourably discharged. He was seen in the ED, x-ray showed no heart failure. He does have a porcine aortic valve replacement and his heart rate was up in the 140s, irregularly irregular. He was given metoprolol. By the time I saw him, his heart rate was down to 85 per minute. He remains permanent atrial fibrillation with irregularly irregular rhythm. PAST MEDICAL HISTORY: Significant for aortic valve replacement, permanent pacemaker, unspecified cancer surgery, chronic alcoholism, heavy drinker, permanent atrial fibrillation, degenerative arthritis, COPD and hypertension. ALLERGIES: He has no known drug allergies. FAMILY HISTORY: Unobtainable. SOCIAL HISTORY: Smoker, heavy drinker. REVIEW OF SYSTEMS: Significant for the knee pain, right side. He walks with a cane and is able to ambulate. He had fallen. He continued to drink heavily. He does not have a car. He does not have a home. Again, he was incarcerated until 03/2019 in [place]. He is a , but he has no VA benefits due to the fact that he was dishonourably discharged. He is old enough for Medicare. He has Medicare part A. MEDICATIONS: His medications prescribed on the last time included Eliquis, metoprolol and lisinopril. PHYSICAL EXAMINATION: GENERAL: When I saw him, this is a disheveled gentleman who was alert, oriented and sober. VITAL SIGNS: Initial vital signs in the ED showed a blood pressure of 128/74, pulse was initially 140, irregularly irregular. By the time I saw her on the next day it was down to 73 per minute, blood pressure 125/79. He was afebrile. Room air saturations are 93%. HEENT: Head is without trauma. Pupils are reactive. Sclerae nonicteric. The oropharynx is clear. NECK: Supple, no bruits identified. LUNGS: Otherwise clear. CARDIOVASCULAR: Showed irregularly irregular rhythm, variable S1, normal S2. Peripheral pulses are palpable and full. There is a soft grade 2 early systolic murmur at the left sternal border. ABDOMEN: Obese, protuberant. No organomegaly. Bowel sounds are hypoactive. EXTREMITIES: Show trace edema. NEUROLOGIC: Focally intact. Speech is fluent. He is quite sober. PERTINENT LABORATORY AND X-RAY STUDIES: His hemoglobin was 14.1 g/dL with white count of 8600. Chemistry panel shows sodium of 138 mEq per liter, potassium 3.9 mEq per liter. Nonfasting blood sugar 111. Cardiac enzymes negative for myocardial ischemia. Creatinine 0.8 mg/dL. The obligatory chest x-ray showed a dual lead left-sided permanent pacemaker intact sternotomy wires. No effusions, no active cardiopulmonary process. ASSESSMENT: 1. A 73-year-old gentleman with rapid atrial fibrillation. He has an irregular rhythm, permanent atrial fibrillation with uncontrolled ventricular rate. 2. Noncompliance of medication. 3. Chronic alcoholism. He is still actively drinking. 4. Tobacco abuse with chronic obstructive pulmonary disease. 5. Essential hypertension. 6. Permanent pacemaker. 7. History of porcine aortic valve replacement. PLAN: 1. Admit to the inpatient unit with telemetry monitoring. 2. I have ordered oral beta taniya. 3. Diet as tolerated. 4. We will hold off his Eliquis as right now despite his atrial fibrillation with his history of drinking and following the risk of continued anticoagulation with Eliquis outweighs the benefits. 5. I will contact perinatal social worker to arrange for medication procurement as well as finding a place to go at the time of discharge. CHARLY POWER MD DR: TRINI/aissatou JOB#: [id number] / [id number]
[2019-06-16 11:30] VITALS: BP 91/49
--- NOTE | 2019-06-16 12:00 | NUR ---
PLACEMENT REFERRALS SENT: [facility] AND [facility]
--- NOTE | 2019-06-16 12:26 | NUR ---
NURSING NOTE PT WAS IN HIS CHAIR THIS AM UPON ASSESSMENT AND MEDICATION ADMINISTRATION. PT IS A&O, TAKES MEDS WHOLE. PT IS CALM, COMPLIANT, AND COOPERATIVE WITH ALL CARES. PT IS X1 ASSIST TO GO FROM SIT TO STAND AND IS STANDBY ASSIST WITH HIS WALKER TO GET TO THE REST ROOM. PT DENIES ANY SUICIDAL IDEATIONS AND STATES HE FEELS SAFE WHEN HE HIS HERE. PT HAD A SHOWER YESTERDAY. PT DENIES ANY FAMILY TO NOTIFY. PT IS THANKFUL OF ALL CARES. WILL CONTINUE TO MONITOR. SANDRA COCHRAN.
[2019-06-16 16:13] VITALS: BP 110/69
[2019-06-16 19:16] VITALS: BP 108/70
[2019-06-16 22:52] VITALS: BP 94/56
[2019-06-17 06:31] VITALS: BP 129/83
--- NOTE | 2019-06-17 06:37 | NUR ---
PATIENT HAS RESTED THIS SHIFT. NO C/O VERBALIZED. PATIENT UP TO RESTROOM PRN. PATIENT ASSISTED TO RESTROOM THIS AM VOIDING/ HAVING A BM, PATIENT VOIDED 600 CC CLEAR YELLOW URINE IN URINAL THROUGHOUT NIGHT. PATIENT UP TO CHAIR THIS AM WATCHING TV, DRINKING COFFEE.
[2019-06-17] MEDS: METOPROLOL TART IMMED RELEASE 50 MG TABLET PO SCH (08:04)
--- NOTE | 2019-06-17 08:59 | PN ---
DATE: 06/17/2019 ATTENDING PHYSICIAN: Dr. Power. SUBJECTIVE: Palpitations, better. No new complaints. His knees bother him. He has had some loose stools. No impending withdrawal symptom. OBJECTIVE FINDINGS: VITAL SIGNS: The blood pressure today is 129/83, pulse is 82 and irregularly irregular, temperature 97.5 degrees Fahrenheit, and oxygen saturation 96% on room air. HEENT: Head is without trauma. Pupils are reactive. Sclerae nonicteric. Oropharynx clear. NECK: Supple. LUNGS: Clear. CARDIOVASCULAR: Show irregularly irregular rhythm, controlled rate of 80 per minute. Peripheral pulses are palpable and full. ABDOMEN: Obese, protuberant. No guarding. EXTREMITIES: Show trace edema. NEUROLOGIC: Focally intact. He is quite sober. ASSESSMENT: 1. A 73-year-old gentleman with atrial fibrillation with rapid ventricular rate, now controlled rate. He has permanent atrial fibrillation. 2. Noncompliance of medication, back on meds. We did get him a 90-day supply. 3. Chronic alcoholism. 4. Tobacco abuse. 5. Hypertension. 6. Permanent pacemaker. 7. History of porcine aortic valve replacement. Because of his risk factors and drinking, we elected not to continue his Eliquis at this time. Even then, he would not have the means to procure it. PLAN: 1. Continue current regimen. 2. Diet as tolerated. 3. As we had discussed and discussed with the patient, he agrees with the risk of Eliquis outweighs the benefits. 4. [employer] and/or director of casework department is helping to try to get placement for him. CHARLY POWER MD DR: TRINI/aissatou JOB#: [id number] / [id number]
--- NOTE | 2019-06-17 11:20 | DS ---
DATE OF DISCHARGE: 06/17/2019 ATTENDING PHYSICIAN: Dr. Power. FINAL DISCHARGE DIAGNOSES: 1. Atrial fibrillation with rapid ventricular rate controlled. 2. Permanent atrial fibrillation. 3. Noncompliance of medications. 4. Chronic alcoholism. 5. Tobacco abuse. 6. Hypertension. 7. Permanent pacemaker. 8. History of porcine aortic valve replacement. 9. Chronic anticoagulation. HISTORY AND PHYSICAL: The patient, age 73, was recently released from retirement in a [facility]. He has atrial fibrillation with rapid ventricular rate. He was just discharged from this hospital this previous Wednesday, 3 days prior to coming in. He is noncompliant. He gets $900 a month from social security, but spends his money on alcohol and tobacco. He presented to the ER with palpitations, ventricular rate was in the 140s. He was admitted for further treatment and evaluation. PHYSICAL EXAMINATION: Please see the dictated note. PERTINENT LABORATORY AND X-RAY STUDIES: On the database. COURSE IN THE HOSPITAL: He was given intravenous metoprolol and oral metoprolol. We increased his dose to 100 b.i.d. He did well. Diet was advanced. We monitored him for signs of withdrawal. He had no signs of impending alcohol withdrawal. His issue was social. He is a , but he was dishonorably discharged and therefore has no VA benefits. He is homeless. He has no family. Social workers are trying to get him in the correction, but because of the COVID-19 epidemic, no place will take him. On the second hospital day, we are trying to arrange for one of the local hotels again with discounted rate and will provide a cab. He was given a 90-day supply of metoprolol 100 mg b.i.d. These were procured for him through our [employer] [facility] and given to the patient. For now regarding the Eliquis, he has no means to pay for it. The risk of anticoagulation given his drinking history outweighs the benefits, so therefore we stopped it. He had been taking it anyway. He was discharged from our hospital in stable condition. Whether or not he will get eventual placement and settled down remains to be seen. He was discharged in stable condition with maximal efforts from our social work faculty member and nursing staff trying to find him placement and plans for followup care. CHARLY POWER MD DR: TRINI/aissatou JOB#: [id number] / [id number]
--- NOTE | 2019-06-17 13:56 | NUR ---
BEN NOTE; Q15 MIN CHECKS DC'D THIS AM AT 0915 PER VERBAL ORDER FROM DR POWER
[2019-06-17 16:22] VITALS: BP 129/85
--- NOTE | 2019-06-17 17:53 | NUR ---
NSG NOTE; DISCHARGE VERBAL AND WRITTEN DISCHARGE INSTRUCTIONS GIVEN TO PT WITH VERBAL UNDERSTANDING DISCHARGED AT 1750 VIA AMB W/ [facility] HOSPITAL PAYING FOR CAB RIDE TO PT'S DESTINATION
== END 2019-06-17 18:00 | disposition home or self-care (01) | DRG 310 ==
LOC: ER 13:30 → 1 SOUTH 15:16
PROVIDERS: ADMIT Hospitalist; ATTEND Hospitalist
DX: I48.21 Permanent atrial fibrillation (principal); F10.20 Alcohol dependence, uncomplicated; F17.200 Nicotine dependence, unspecified, uncomplicated; I10 Essential (primary) hypertension; J44.9 Chronic obstructive pulmonary disease, unspecified; M19.90 Unspecified osteoarthritis, unspecified site; Z59.0 Homelessness; Z79.01 Long term (current) use of anticoagulants; Z91.14 Patient's other noncompliance with medication regimen; Z91.19 Patient's noncompliance with other medical treatment and regimen; Z95.3 Presence of xenogenic heart valve; Z79.899 Other long term (current) drug therapy
CPT/HCPCS: 36415; 71045; 80048; 82947; 84484; 85025; 93005; 99406; G0480; J3490; 97110; 97530; 99285-25